=== PATIENT | male | born 1930 | race Caucasian/White ===

== ENCOUNTER 2016-09-12 12:40 | Inpatient (IN) | payer MEDICARE ==
[2016-09-12] VITALS (7 sets, daily range): BP systolic 144–222; BP diastolic 77–100; PULSE 73–90; RESP 14–20; TEMP 97.2–97.9; O2SAT 98–100
[~2016-09-12] VITALS: Ht 170.2 cm; Wt 68.5 kg
[~2016-09-12 12:40] MED LIST: BACT800T5 PO; CEPH500C3 PO; METO25 PO; METO50TA PO; PLAV75TA PO
--- NOTE | 2016-09-12 12:54 | PD ---
Physical Exam Date Seen by Provider: Sep 12, 2016 Time Seen by Provider: 12:51 Data Data Last Documented VS Vital Signs Date Time Temp Pulse Resp B/P Pulse Ox O2 Delivery O2 Flow Rate FiO2 09/12/16 12:42 97.9 82 20 148/78 100 MDM Supervised Visit with SARA: No Narrative Course 86 YO M with complaint of 5/10 left lower extremity pain, dry gangrene of the left great toe. Patient is on PLAVIX. Sent by Dr. Yusuf "for bypass surgery." Vitals reviewed. Awaiting bed placement. Gillian Titus Sep 12, 2016 12:54
--- NOTE | 2016-09-12 13:18 | PD ---
HPI Chief Complaint: Musculoskeletal Complaint Time Seen by Provider: 13:18 Travel History International Travel<30 days: No Contact w/Intl Traveler<30days: No Traveled to known affect area: No PFSH Past Medical History Diabetes: Yes Diminished Hearing: Yes (DOES NOT WEAR HEARING AIDS) Hypertension: Yes Immunizations Current: Yes Past Surgical History Cardiac Surgery: Yes (CAROTID ENDARECTOMY) Other Surgery: Yes (CAROTID SX) Social History Alcohol Use: Yes (A FEW DRINKS A DAY) Tobacco Use: No Substance Use: No Allergies-Medications (Allergen,Severity, Reaction): Coded Allergies: No Known Allergies (Verified , 09/12/16) Reported Meds & Prescriptions Reported Meds & Active Scripts Active Reported Clopidogrel (Clopidogrel Bisulfate) 75 Mg Tab 75 Mg PO DAILY Lisinopril 40 Mg Tab 40 Mg PO DAILY Hydrocodone-Acetaminophen 5-325 mg Tab 1 Tab PO Q6H PRN Metoprolol Tartrate 25 Mg Tab 25 Mg PO BID Data Data Last Documented VS Vital Signs Date Time Temp Pulse Resp B/P Pulse Ox O2 Delivery O2 Flow Rate FiO2 09/12/16 12:42 97.9 82 20 148/78 100 Orders Complete Blood Count With Diff (09/12/16 14:12) Basic Metabolic Panel (Bmp) (09/12/16 14:12) Prothrombin Time / Inr (Pt) (09/12/16 14:12) Type And Screen (09/12/16 14:12) ^ Saline Lock (09/12/16 14:12) Heparin Infusion KRISSY.Q1H (09/12/16 14:16) Heparin-D5w Inj (Heparin-D5w Inj) (09/12/16 14:30) Act Partial Throm Time (Ptt) (09/12/16 14:16) Cbc No Diff, Includes Plts (09/15/16 06:00) Morphine Inj (Morphine Inj) (09/12/16 14:30) Admit Order (Ed Use Only) (09/12/16 15:05) Labs Laboratory Tests Test 09/12/16 13:40 White Blood Count 16.0 TH/MM3 Red Blood Count 4.10 MIL/MM3 Hemoglobin 11.6 GM/DL Hematocrit 35.6 % Mean Corpuscular Volume 86.8 FL Mean Corpuscular Hemoglobin 28.4 PG Mean Corpuscular Hemoglobin 32.7 % Concent Red Cell Distribution Width 13.2 % Platelet Count 491 TH/MM3 Mean Platelet Volume 7.7 FL Neutrophils (%) (Auto) 79.2 % Lymphocytes (%) (Auto) 12.5 % Monocytes (%) (Auto) 7.8 % Eosinophils (%) (Auto) 0.2 % Basophils (%) (Auto) 0.3 % Neutrophils # (Auto) 12.7 TH/MM3 Lymphocytes # (Auto) 2.0 TH/MM3 Monocytes # (Auto) 1.3 TH/MM3 Eosinophils # (Auto) 0.0 TH/MM3 Basophils # (Auto) 0.1 TH/MM3 CBC Comment DIFF FINAL Differential Comment Prothrombin Time 10.6 SEC Prothromb Time International 1.0 RATIO Ratio Activated Partial 29.4 SEC Thromboplast Time Sodium Level 132 MEQ/L Potassium Level 4.0 MEQ/L Chloride Level 98 MEQ/L Carbon Dioxide Level 26.5 MEQ/L Anion Gap 8 MEQ/L Blood Urea Nitrogen 18 MG/DL Creatinine 1.21 MG/DL Estimat Glomerular Filtration 57 ML/MIN Rate Random Glucose 120 MG/DL Calcium Level 8.8 MG/DL Blood Type A POSITIVE Antibody Screen NEGATIVE Blood Bank Comment Chelle Rolon MD Sep 12, 2016 13:18 Chelle Rolon MD Sep 12, 2016 13:18
[2016-09-12] MEDS ORDERED: HYDR-3516 PO (13:24)
[2016-09-12] MEDS ORDERED: METO25TA3 PO (13:24)
[2016-09-12] MEDS ORDERED: LISI40TA PO (13:24)
[2016-09-12] MEDS ORDERED: CLOP75TA PO (13:24)
[2016-09-12] MEDS ORDERED: MORPHINE SULFATE 4 MG/ML INJ IV PUSH ONE (14:30)
[2016-09-12] MEDS ORDERED: HEPARIN-D5W INJ 250 ML IV SCH (14:30)
--- NOTE | 2016-09-12 14:32 | PD ---
HPI Chief Complaint: Musculoskeletal Complaint Time Seen by Provider: 13:18 Travel History International Travel<30 days: No Contact w/Intl Traveler<30days: No Traveled to known affect area: No History of Present Illness HPI 86-year-old male brought to the emergency room sent by his vascular surgeon Dr. Yusuf for left great toe dry gangrene secondary to poor circulation. Patient is here with his 2 sons and he is here to be admitted. The vascular surgeon intends to do the surgery on Thursday. Patient reports having spasms, pain and varicose veins in his left lower extremity for the last month after experiencing an ingrown toe nail on his left big toe. He describes the pain as constant, sharp, burning and worsening. He also reports having claudication and dyspnea on exertion. He becomes short of breath walking from room to room at his house. Patient denies edema, fever, chills, headache, nausea or vomiting. As per the sons a black dot started on the great toe 1 week ago. It rapidly progressed to engulf two third of the toe. Patient has history of poor circulation. Vascular surgeon intends to do a groin reconstruction surgery on Thursday. Family is aware of this plan. They understand that he needs to be admitted. [facility] Past Medical History Narrative Medical List of his past medical, surgical, social and family history was reviewed from the nursing note. Diabetes: Yes Patient Takes Glucophage: No Diminished Hearing: Yes (DOES NOT WEAR HEARING AIDS) Hypertension: Yes Medical other: Yes (peripheral vascular disease) Immunizations Current: Yes Past Surgical History Cardiac Surgery: Yes (CAROTID ENDARECTOMY) Other Surgery: Yes (CAROTID SX) Social History Alcohol Use: No Tobacco Use: No Substance Use: No Allergies-Medications (Allergen,Severity, Reaction): Coded Allergies: No Known Allergies (Verified , 09/12/16) Comments No known drug allergies. Reported Meds & Prescriptions Reported Meds & Active Scripts Active Reported Clopidogrel (Clopidogrel Bisulfate) 75 Mg Tab 75 Mg PO DAILY Lisinopril 40 Mg Tab 40 Mg PO DAILY Hydrocodone-Acetaminophen 5-325 mg Tab 1 Tab PO Q6H PRN Metoprolol Tartrate 25 Mg Tab 25 Mg PO BID Narrative Medication List of his home medications reviewed from the nursing note. Review of Systems Except as stated in HPI: all other systems reviewed are Neg Respiratory: Positive: Shortness of Breath (on exertion ) Musculoskeletal: Positive: Cramping (claudication ), Pain, Other (spasms) Physical Exam Narrative GENERAL: Awake, alert, elderly, mild distress SKIN: Focused skin assessment warm/dry. Left foot great toe has dry gangrene with necrosis. Distal pulses absent on the foot. Varicose veins visualized in the left lower extremity. Nails are overgrown, yellow and unkempt. Numerous superficial lesions with small amounts of bleeding noted between toes of the left foot. HEAD: Atraumatic. Normocephalic. EYES: Pupils equal and round. No scleral icterus. No injection or drainage. ENT: No nasal bleeding or discharge. Mucous membranes pink and moist. NECK: Trachea midline. No JVD. CARDIOVASCULAR: Regular rate and rhythm. No murmur appreciated. RESPIRATORY: No accessory muscle use. Clear to auscultation. Breath sounds equal bilaterally. GASTROINTESTINAL: Abdomen soft, non-tender, nondistended. Hepatic and splenic margins not palpable. MUSCULOSKELETAL: No obvious deformities. No clubbing. No cyanosis. No edema. NEUROLOGICAL: Awake and alert. No obvious cranial nerve deficits. Motor grossly within normal limits. Normal speech. Sensation intact bilaterally in lower extremities. PSYCHIATRIC: Appropriate mood and affect; insight and judgment normal. Data Data Last Documented VS Vital Signs Date Time Temp Pulse Resp B/P Pulse Ox O2 Delivery O2 Flow Rate FiO2 09/12/16 12:42 97.9 82 20 148/78 100 Orders Complete Blood Count With Diff (09/12/16 14:12) Basic Metabolic Panel (Bmp) (09/12/16 14:12) Prothrombin Time / Inr (Pt) (09/12/16 14:12) Type And Screen (09/12/16 14:12) ^ Saline Lock (09/12/16 14:12) Heparin Infusion KRISSY.Q1H (09/12/16 14:16) Heparin-D5w Inj (Heparin-D5w Inj) (09/12/16 14:30) Act Partial Throm Time (Ptt) (09/12/16 14:16) Cbc No Diff, Includes Plts (09/15/16 06:00) Morphine Inj (Morphine Inj) (09/12/16 14:30) Admit Order (Ed Use Only) (09/12/16 15:05) Labs Laboratory Tests Test 09/12/16 13:40 White Blood Count 16.0 TH/MM3 Red Blood Count 4.10 MIL/MM3 Hemoglobin 11.6 GM/DL Hematocrit 35.6 % Mean Corpuscular Volume 86.8 FL Mean Corpuscular Hemoglobin 28.4 PG Mean Corpuscular Hemoglobin 32.7 % Concent Red Cell Distribution Width 13.2 % Platelet Count 491 TH/MM3 Mean Platelet Volume 7.7 FL Neutrophils (%) (Auto) 79.2 % Lymphocytes (%) (Auto) 12.5 % Monocytes (%) (Auto) 7.8 % Eosinophils (%) (Auto) 0.2 % Basophils (%) (Auto) 0.3 % Neutrophils # (Auto) 12.7 TH/MM3 Lymphocytes # (Auto) 2.0 TH/MM3 Monocytes # (Auto) 1.3 TH/MM3 Eosinophils # (Auto) 0.0 TH/MM3 Basophils # (Auto) 0.1 TH/MM3 CBC Comment DIFF FINAL Differential Comment Prothrombin Time 10.6 SEC Prothromb Time International 1.0 RATIO Ratio Activated Partial 29.4 SEC Thromboplast Time Sodium Level 132 MEQ/L Potassium Level 4.0 MEQ/L Chloride Level 98 MEQ/L Carbon Dioxide Level 26.5 MEQ/L Anion Gap 8 MEQ/L Blood Urea Nitrogen 18 MG/DL Creatinine 1.21 MG/DL Estimat Glomerular Filtration 57 ML/MIN Rate Random Glucose 120 MG/DL Calcium Level 8.8 MG/DL Blood Type A POSITIVE Antibody Screen NEGATIVE Blood Bank Comment MDM Medical Decision Making Medical Screen Exam Complete: Yes Emergency Medical Condition: Yes Medical Record Reviewed: Yes Differential Diagnosis Dry gangrene, ischemia of the great toe, poor circulation, PAD Narrative Course 2:29 PM I discussed the case with Dr. Yusuf's PA and she confirmed this story. He wanted the patient to be started on heparin drip which has been ordered. Preop labs has been ordered. I put a call out for the [facility] hospitalist to admit him. Critical Care Narrative Aggregate critical care time was 30 minutes. Time to perform other separately billable procedures was not included in the critical care time. My time did not include minutes spent treating any other patients simultaneously or on activities that did not directly contribute to the patient's treatment. The services I provided to this patient were to treat and/or prevent clinically significant deterioration that could result in: Ischemia of the toe, heparin drip I provided critical care services requiring my management, as noted below: Chart data review, documentation time, medication orders and management, vital sign assessments/reviewing monitor data, ordering and reviewing lab tests, ordering and interpreting/reviewing x-rays and diagnostic studies, care of the patient and discussion of the patient with the admitting physicians. Procedures EKG Prior to Arrival: No Physician Communication Physician Communication PA of Dr. Yusuf Diagnosis Primary Impression: Gangrene of toe of left foot Additional Impression: Peripheral arterial disease Admitting Information Admitting Physician Requests: Admit Chelle Rolon MD Sep 12, 2016 14:32 Chelle Rolon MD Sep 12, 2016 14:32
[2016-09-12 14:38] LABS: AUTOMATED NEUTROPHIL # 12.7 TH/MM3 (1.8-7.7); BASOPHIL # 0.1 TH/MM3 (0-0.2); BASOPHIL % 0.3 % (0.0-2.0); EOSINOPHIL % 0.2 % (0.0-4.0); HEMATOCRIT 35.6 % (39.0-51.0); HEMO FLAGS DIFF FINAL; LYMPH % 12.5 % (9.0-44.0); MEAN CELL VOLUME 86.8 FL (80.0-100.0); MEAN CORPUSCULAR HEMOGLOBIN 28.4 PG (27.0-34.0); MEAN CORPUSCULAR HGB CONC 32.7 % (32.0-36.0); MONO % 7.8 % (0.0-8.0); NEUT % 79.2 % (16.0-70.0); PLATELET COUNT 491 TH/MM3 (150-450); RED CELL DISTRIBUTION WIDTH 13.2 % (11.6-17.2)
[2016-09-12 14:51] LABS: BICARBONATE 26.5 MEQ/L (21.0-32.0)
[2016-09-12 14:55] LABS: APTT (PATIENT) 29.4 SEC (24.3-30.1)
[2016-09-12 15:06] LABS: PROTHROMBIN TIME - PATIENT 10.6 SEC (9.8-11.6)
[2016-09-12] MEDS ORDERED: SODIUM CHLORIDE 0.9% FLUSH 10 ML FLUSH IV FLUSH PRN (15:15)
[2016-09-12] MEDS ORDERED: ONDANSETRON HCL 4 MG/2 ML VIAL IVP PRN (15:15)
[2016-09-12] MEDS ORDERED: NALOXONE HCL 0.4 MG/ML AMP IV PRN (15:15)
[2016-09-12] MEDS ORDERED: LACTULOSE SYRUP 20 GM/30 ML CUP PO PRN (15:15)
[2016-09-12] MEDS ORDERED: BISACODYL 10 MG SUPP RECTAL PRN (15:15)
[2016-09-12] MEDS ORDERED: ACETAMINOPHEN 325 MG TAB PO PRN (15:15)
[2016-09-12] MEDS ORDERED: SENNOSIDES 8.6 MG TAB PO PRN (15:15)
[2016-09-12] MEDS ORDERED: MAGNESIUM HYDROXIDE SUSP 30 ML CUP PO PRN (15:15)
[2016-09-12] MEDS: HEPARIN-D5W INJ 250 ML IV SCH (16:54)
--- NOTE | 2016-09-12 17:02 | PD.VS.PN ---
Subjective Subjective/Hospital Course Pt seen earlier today in clinic - he has a profoundly ischemic forefoot, along with HTN, DM and h/o CVA. Pt has intense rest pain and may in fact have an unsalvageable foot. Objective Vitals/I&O Date Time Temp Pulse Resp B/P Pulse Ox O2 Delivery O2 Flow Rate FiO2 09/12/16 16:10 90 164/80 09/12/16 15:27 97.7 73 18 220/97 100 Room Air 09/12/16 12:42 97.9 82 20 148/78 100 Physical Exam L forefoot ischemia, no palpable pulses. Great toe dry gangrene. Laboratory Laboratory Tests Test 09/12/16 13:40 White Blood Count 16.0 Red Blood Count 4.10 Hemoglobin 11.6 Hematocrit 35.6 Mean Corpuscular Volume 86.8 Mean Corpuscular Hemoglobin 28.4 Mean Corpuscular Hemoglobin 32.7 Concent Red Cell Distribution Width 13.2 Platelet Count 491 Mean Platelet Volume 7.7 Neutrophils (%) (Auto) 79.2 Lymphocytes (%) (Auto) 12.5 Monocytes (%) (Auto) 7.8 Eosinophils (%) (Auto) 0.2 Basophils (%) (Auto) 0.3 Neutrophils # (Auto) 12.7 Lymphocytes # (Auto) 2.0 Monocytes # (Auto) 1.3 Eosinophils # (Auto) 0.0 Basophils # (Auto) 0.1 CBC Comment DIFF FINAL Differential Comment Prothrombin Time 10.6 Prothromb Time International 1.0 Ratio Activated Partial 29.4 Thromboplast Time Sodium Level 132 Potassium Level 4.0 Chloride Level 98 Carbon Dioxide Level 26.5 Anion Gap 8 Blood Urea Nitrogen 18 Creatinine 1.21 Estimat Glomerular Filtration 57 Rate Random Glucose 120 Calcium Level 8.8 Blood Type A POSITIVE Antibody Screen NEGATIVE Blood Bank Comment Imaging Outside angio reviewed - significant [employer] and profunda disease. Unclear if he has a distal target. Assessment and Plan Plan 1. Admit and start IV hep gtt 2. IV pain meds 3. Plan for angio, groin reconstruction and distal bypass on Thursday morning. I discussed the procedure and the ultimate chance of limb loss with the patient and his family in clinic. To OR Thursday. Nick Yusuf MD Sep 12, 2016 17:02
--- NOTE | 2016-09-12 17:54 | MH ---
cc: CHRISTOPHER HOLBROOK MD DATE OF ADMISSION 09/12/2016 DATE OF 1930 TRAVEL HISTORY Travel in the last 30 days none. CHIEF COMPLAINT Right great toe pain with gangrene. HISTORY OF PRESENT ILLNESS This is a pleasant 86-year-old white male who had been in his usual state of health up until this past March. The patient's ____ at bedside and assisting with his history. The patient has always been very active and walked with his walker daily as well as exercises daily. The patient noted some increased sensation of pain back since March and has been following his PCP and vascular surgeon, Dr. Jones for his vascular insufficiency. Approximately a week ago sons noted a very small black area on his great toe that has rapidly progressed to black tissue to over half of his right great toe. The patient has also reddened erythema over half of his foot but no further dark or blackened areas noted. The patient was seen per his vascular surgeon, Dr. Jones today and was advised to come to the hospital for admission. According to the sons the plan is to do surgery on Thursday. The patient denies any chest pain. He does have some shortness of breath with exertion but none at rest. The patient denies any headaches. The patient denies any nausea, vomiting, no diarrhea. No constipation. The patient is alert, awake, answers simple questions but he is a fair to poor historian. Sons at his bedside and supportive of his care and are his chief caretakers. PAST MEDICAL HISTORY The past medical history includes diabetes type 2 diet controlled, [id number], hypertension, peripheral vascular disease. Carotid disease. PAST SURGICAL HISTORY 1. Carotid endarterectomy. ALLERGIES No known. MEDICATIONS 1. Plavix. 2. Lisinopril. 3. Hydrocodone, acetaminophen 5-3 5 p.r.n. for pain. 4. Metoprolol. SOCIAL HISTORY There is no tobacco, alcohol or illicit drug use. The patient lives in his own home. His two sons are daily assistance with his care taking. REVIEW OF SYSTEMS The review of systems limited review except for yes or noted to symptom management. History was given her sons and from the record. PHYSICAL EXAMINATION VITAL SIGNS: Temperature is 97.7, pulse 73, respirations 18, blood pressure initially on admission 148/78. During my initial says assessment blood pressure came up on the regulated BP machine at 220/97 in the left arm. Cuff was readjusted and checked in the right arm. Blood pressure was noted to be 165/80. Manual check was done in the left arm and was found to be 140/86 and 132/80. O2 sat 100 on room air. GENERAL: Slim but well-nourished white male, looks to be his stated age, resting in the bed. He is alert, awake and answering simple questions. SKIN: Is pale with pink mucous membranes warm and dry. HEENT: Atraumatic, normocephalic. MILEY too Mucous membranes are pink and moist. Oral cavity is clear. NECK: is supple. CARDIOVASCULAR: S1-S2, regular rate and rhythm in the 70s. No murmurs, rubs or gallops. The patient has no peripheral edema. He has no pulse, no DP or PT palpable in his right foot. Left foot, extremity is warm to touch. LUNGS: Essentially clear anteriorly and posteriorly with no wheezes, rales or rhonchi. His volumes are low normal volumes. ABDOMEN: Abdomen is round, soft, nontender, nondistended. Active bowel sounds. MUSCULOSKELETAL: He can move his extremities with purpose. He has limited movement and positive for pain in his left lower extremity. He does have a gangrenous black great toe on his left foot with discoloration and redness over half of the foot. He has no other obvious deformities. NEUROLOGICALLY: He is alert, awake, tongue is midline. Follows simple commands. Speech is clear. PSYCHIATRIC: Appropriate mood and affect. DIAGNOSTIC DATA WBC count 16, RBC 4.1, hemoglobin 11.6, hematocrit 35.6, platelet count 491, neutrophil count 79.2, platelet count 491, monocyte count percentage auto 1.3. PT/INR is 1, APTT 29.4. Chemistry sodium 132, potassium 4, chloride 98, carbon dioxide 26.5. Amnion gap 8, BUN 18, creatinine 1.21, GFR 57, random glucose 120, calcium 8.8. IMAGING STUDIES There is no other imaging studies for now. ASSESSMENT/PLAN Peripheral artery disease, gangrene of the great toe of the left foot, leukocytosis mild, hyponatremia mild, hyperglycemia with diet-controlled diabetes type 2, anemia mild, elevated platelet count at 491, history of hypertension. Our plan is to admit. We will monitor his vital signs at least every four hours. Reconcile his medication and give him stool softeners and p.r.n. medications for pain, nausea, fever and bowel regimen as warranted. He will be admitted inpatient status. We will monitor his blood pressure and add some p.r.n. medications in case he needs a treatment for BP systolic 80 or greater, BP diastolic 100 or greater. Vascular consult with Dr. Jones or his expert opinion. My understanding is the plan for the patient to have vascular surgery on Thursday. We will monitor him on constant cardiac monitoring, heart healthy diet, maintain IV access, monitor his labs, DVT prophylaxis with a heparin drip, PUD prophylaxis with Pepcid, elevate the left foot at all times in the bed. To my knowledge the patient is full code, full aggressive care and we will follow his needs depending on his response to his hospital course. We will follow his needs based on his treatment regimen. Dictated by NILE Saleh MD KATHLEEN Bullock/GWENDOLYN /4:36 PM /5:23 PM
[2016-09-12] MEDS: ACETAMINOPHEN/HYDROcodone 325 MG/5 MG TAB PO PRN (19:14)
[2016-09-12] MEDS: METOPROLOL TARTRATE 25 MG TAB PO SCH (20:35)
[2016-09-12] MEDS: FAMOTIDINE 20 MG TAB PO SCH (20:35)
[2016-09-12] MEDS: SODIUM CHLORIDE 0.9% FLUSH 10 ML FLUSH IV FLUSH SCH (20:36)
[2016-09-12] MEDS: DOCUSATE SODIUM 50 MG/SENNA 8.6 MG TAB PO SCH (20:42)
[2016-09-12 20:45] LABS: HEMATOCRIT 34.3 % (39.0-51.0); MEAN CELL VOLUME 86.1 FL (80.0-100.0); MEAN CORPUSCULAR HEMOGLOBIN 28.9 PG (27.0-34.0); MEAN CORPUSCULAR HGB CONC 33.5 % (32.0-36.0); PLATELET COUNT 478 TH/MM3 (150-450); RED BLOOD COUNT 3.99 MIL/MM3 (4.50-5.90); REVIEW FLAG FINAL; WHITE BLOOD COUNT 14.9 TH/MM3 (4.0-11.0)
[2016-09-12 20:56] LABS: APTT (PATIENT) 39.4 SEC (24.3-30.1)
--- NOTE | 2016-09-12 23:24 | HHI.PR ---
Vitals/Results Vital Signs Vital Signs Date Time Temp Pulse Resp B/P Pulse Ox O2 Delivery O2 Flow Rate FiO2 09/12/16 20:29 90 09/12/16 20:05 90 09/12/16 20:05 18 09/12/16 20:00 97.2 88 19 144/81 98 09/12/16 18:00 97.8 85 14 222/100 100 203/89 157/77 09/12/16 16:10 90 164/80 09/12/16 15:27 97.7 73 18 220/97 100 Room Air 09/12/16 12:42 97.9 82 20 148/78 100 CBC/BMP: 09/12/16200909/12/16 1340 Lab Results Laboratory Tests Test 09/12/16 09/12/16 13:40 20:10 White Blood Count 16.0 TH/MM3 14.9 TH/MM3 Red Blood Count 4.10 MIL/MM3 3.99 MIL/MM3 Hemoglobin 11.6 GM/DL 11.5 GM/DL Hematocrit 35.6 % 34.3 % Mean Corpuscular Volume 86.8 FL 86.1 FL Mean Corpuscular Hemoglobin 28.4 PG 28.9 PG Mean Corpuscular Hemoglobin 32.7 % 33.5 % Concent Red Cell Distribution Width 13.2 % 13.0 % Platelet Count 491 TH/MM3 478 TH/MM3 Mean Platelet Volume 7.7 FL 7.6 FL Neutrophils (%) (Auto) 79.2 % Lymphocytes (%) (Auto) 12.5 % Monocytes (%) (Auto) 7.8 % Eosinophils (%) (Auto) 0.2 % Basophils (%) (Auto) 0.3 % Neutrophils # (Auto) 12.7 TH/MM3 Lymphocytes # (Auto) 2.0 TH/MM3 Monocytes # (Auto) 1.3 TH/MM3 Eosinophils # (Auto) 0.0 TH/MM3 Basophils # (Auto) 0.1 TH/MM3 CBC Comment DIFF FINAL Differential Comment Prothrombin Time 10.6 SEC Prothromb Time International 1.0 RATIO Ratio Activated Partial 29.4 SEC 39.4 SEC Thromboplast Time Sodium Level 132 MEQ/L Potassium Level 4.0 MEQ/L Chloride Level 98 MEQ/L Carbon Dioxide Level 26.5 MEQ/L Anion Gap 8 MEQ/L Blood Urea Nitrogen 18 MG/DL Creatinine 1.21 MG/DL Estimat Glomerular Filtration 57 ML/MIN Rate Random Glucose 120 MG/DL Calcium Level 8.8 MG/DL Blood Type A POSITIVE Antibody Screen NEGATIVE Blood Bank Comment Assessment/Plan Assessment/Plan patient seen and examined] please refer to admission h & P for details severe PAD gangrenous big toe right foot on hep[won gtt pain control Vascular surgery to do surgery on Thursday discussed with patient julia lewis at bedside discussed with Kira Gresham MD Sep 12, 2016 23:24
[2016-09-13] VITALS (7 sets, daily range): BP systolic 115–156; BP diastolic 50–80; PULSE 70–83; RESP 17–22; TEMP 96.3–97.9; O2SAT 98–99
[2016-09-13] MEDS: ACETAMINOPHEN/HYDROcodone 325 MG/5 MG TAB PO PRN ×3 (01:18→21:25)
[2016-09-13 02:12] LABS: BASOPHIL # 0.1 TH/MM3 (0-0.2); BASOPHIL % 0.5 % (0.0-2.0); EOSINOPHIL # 0.1 TH/MM3 (0-0.4); EOSINOPHIL % 0.5 % (0.0-4.0); HEMATOCRIT 34.4 % (39.0-51.0); HEMO FLAGS DIFF FINAL; LYMPHOCYTE # 3.2 TH/MM3 (1.0-4.8); MEAN CELL VOLUME 86.2 FL (80.0-100.0); MEAN CORPUSCULAR HEMOGLOBIN 28.4 PG (27.0-34.0); PLATELET COUNT 456 TH/MM3 (150-450); RED CELL DISTRIBUTION WIDTH 13.2 % (11.6-17.2); WHITE BLOOD COUNT 13.7 TH/MM3 (4.0-11.0)
[2016-09-13 02:33] LABS: BICARBONATE 25.8 MEQ/L (21.0-32.0); POTASSIUM 3.9 MEQ/L (3.5-5.1)
[2016-09-13 02:51] LABS: APTT (PATIENT) 57.7 SEC (24.3-30.1); PROTHROMBIN TIME - PATIENT 11.1 SEC (9.8-11.6)
[2016-09-13] MEDS: DOCUSATE SODIUM 50 MG/SENNA 8.6 MG TAB PO SCH ×2 (08:57→21:00)
[2016-09-13] MEDS: LISINOPRIL 20 MG TAB PO SCH (08:57)
[2016-09-13] MEDS: SODIUM CHLORIDE 0.9% FLUSH 10 ML FLUSH IV FLUSH SCH ×2 (08:57→21:00)
[2016-09-13] MEDS: METOPROLOL TARTRATE 25 MG TAB PO SCH ×2 (08:57→21:24)
[2016-09-13 09:54] LABS: APTT (PATIENT) 67.1 SEC (24.3-30.1)
[2016-09-13] MEDS: HEPARIN-D5W INJ 250 ML IV SCH (11:31)
--- NOTE | 2016-09-13 16:22 | HHI.PR ---
Subjective Remarks pt is seen & examined chart reviewed Foot pain is pk /pain meds are helping No N/V No CP or SOB NO fever or chills NO cough or hemoptysis No abd pain \offers no other c/o family is at bedside (Arnel Driver MD) Objective Objective Results - Vital Signs Date Time Temp Pulse Resp B/P Pulse Ox O2 Delivery O2 Flow Rate FiO2 09/13/16 08:04 81 09/13/16 08:00 97.0 83 22 151/64 99 09/13/16 04:00 97.9 70 18 131/62 98 09/13/16 02:18 17 09/13/16 00:00 97.0 79 18 156/80 98 09/12/16 20:29 90 09/12/16 20:05 90 09/12/16 20:00 97.2 88 19 144/81 98 09/12/16 18:00 97.8 85 14 222/100 100 203/89 157/77 I/O 09/12/16 09/12/16 09/12/16 09/13/16 09/13/16 09/13/16 07:00 15:00 23:00 07:00 15:00 23:00 Intake Total 240 ml 120 ml Output Total 450 ml 850 ml Balance -210 ml -730 ml Intake Oral 240 ml 120 ml Output Urine Total 450 ml 850 ml (Laya Silvestre) Result Diagram: 09/13/16 01509/13/16 015 Physical Exam Physical Exam PHYSICAL EXAMINATION GENERAL: This is a well-developed, well-nourished male who appears to be in no acute distress. He is alert and awake, []. HEAD: Normocephalic without any lesion or mass noted. Facial features appear symmetric. OROPHARYNGEAL: Oropharynx without erythema or edema. NECK: Supple. No nuchal rigidity or lymphadenopathy. Trachea midline without deviation. CARDIAC: Regular rhythm, regular rate, S1 and S2 are heard. Murmur []; no gallops or rubs. LUNGS: Clear to auscultation bilaterally. [] wheeze, [] rhonchi or [] rale. No use of accessory muscles on inspiration or expiration. ABDOMEN: Soft, nontender, no organomegaly or masses. Bowel sounds are heard in all four quadrants. No rebound. No guarding. EXTREMITIES: [] edema. Pulses equal bilateral. [] cyanosis. NEUROLOGICAL: Patient mood and affect appropriate. No focal deficit SKIN:Warm and moist (Laya Silvestre) A/P Assessment and Plan Peripheral artery disease, gangrene of the great toe of the left foot, leukocytosis mild, hyponatremia mild, hyperglycemia with diet-controlled diabetes type 2, anemia mild, mildly elevated platelet count history of hypertension. Acute kidney injury Gangrenous great toe with left foot, appreciate vascular surgery consult. Plan is still to go to surgery Thursday for bypass versus amputation. Left foot wound are open to air, states pain management is assisting with the overall discomfort. Patient noted some shortness of breath with any type of activity worsening over the past few months since he has not been as active. Chest x-ray to be done today preop, to have for any comparisons needed. Leukocytosis decreased, 13.7. Patient continues to receive IV fluid Anemia secondary to his chronic disease Diabetes type 2 uncontrolled on admission, continued to monitor his Accu-Cheks with sliding scale, ADA diet. Nothing by mouth at midnight Thursday night for surgery Thursday morning. Vital signs reviewed and within normal range Hypertension, controlled with medical management Acute kidney injury mild seen with his labs today. Continue his IV fluids for gentle hydration We'll recheck his labs in the morning. (Laya Silvestre) Assessment and Plan pt is seen & examined d/w PT & family agree w above cont IV heparin analgesic for vascular sx on thursday will f/u (Arnel Driver MD) Laya Silvestre Sep 13, 2016 16:22 Arnel Driver MD Sep 13, 2016 18:21
--- NOTE | 2016-09-13 17:25 | RADRPT ---
EXAM DATE/TIME: 09/13/2016 16:51 [facility] COMPARISON: No previous studies available for comparison. INDICATIONS : Shortness of breath. MEDICAL HISTORY : None. SURGICAL HISTORY : None. ENCOUNTER: Initial ACUITY: 1 day PAIN SCORE: 0/10 LOCATION: Bilateral chest FINDINGS: A single view of the chest demonstrates the lungs to be symmetrically aerated without evidence of mas s, infiltrate or effusion. The cardiomediastinal contours are unremarkable except tortuous aorta. O sseous structures are intact. CONCLUSION: 1. No acute findings. Mildly tortuous aorta. Hamlet Soliz MD on September 13, 2016 at 17:22 Board Certified Radiologist. This report was verified electronically.
[2016-09-13] MEDS: SODIUM CHLOR 0.9% 1000 ML INJ 1,000 ML IV SCH (17:44)
[2016-09-13] MEDS: FAMOTIDINE 20 MG TAB PO SCH (21:24)
[2016-09-13] MEDS: HYDROmorphone HCL PF 1 MG/ML VIAL IV PUSH PRN (22:03)
[2016-09-14] VITALS: BP 111/84; PULSE 76; RESP 18; TEMP 96; O2SAT 97
[2016-09-14 04:00] VITALS: BP 119/58; PULSE 69; RESP 17; TEMP 97; O2SAT 98
[2016-09-14] MEDS: HEPARIN-D5W INJ 250 ML IV SCH (07:48)
[2016-09-14 08:44] VITALS: BP 132/73; PULSE 70; RESP 19; TEMP 97.1; O2SAT 95
[2016-09-14 08:47] LABS: HEMATOCRIT 34.2 % (39.0-51.0); MEAN CELL VOLUME 87.4 FL (80.0-100.0); MEAN CORPUSCULAR HEMOGLOBIN 29.2 PG (27.0-34.0); MEAN CORPUSCULAR HGB CONC 33.4 % (32.0-36.0); PLATELET COUNT 423 TH/MM3 (150-450); RED BLOOD COUNT 3.91 MIL/MM3 (4.50-5.90); RED CELL DISTRIBUTION WIDTH 13.2 % (11.6-17.2); REVIEW FLAG FINAL; WHITE BLOOD COUNT 13.2 TH/MM3 (4.0-11.0)
[2016-09-14] MEDS: DOCUSATE SODIUM 50 MG/SENNA 8.6 MG TAB PO SCH ×2 (09:00→21:00)
[2016-09-14] MEDS: SODIUM CHLORIDE 0.9% FLUSH 10 ML FLUSH IV FLUSH SCH ×2 (09:00→21:14)
[2016-09-14 09:12] LABS: BICARBONATE 23.1 MEQ/L (21.0-32.0); POTASSIUM 3.8 MEQ/L (3.5-5.1)
[2016-09-14] MEDS: LISINOPRIL 20 MG TAB PO SCH (09:14)
[2016-09-14] MEDS: METOPROLOL TARTRATE 25 MG TAB PO SCH ×2 (09:15→21:13)
--- NOTE | 2016-09-14 10:09 | HHI.PR ---
Vitals/Results Intake & Output 09/13/16 09/13/16 09/14/16 15:00 23:00 07:00 Intake Total 1440 ml 120 ml Output Total 1600 ml 450 ml Balance -160 ml -330 ml Intake Oral 1440 ml 120 ml Output Urine Total 1600 ml 450 ml Vital Signs Vital Signs Date Time Temp Pulse Resp B/P Pulse Ox O2 Delivery O2 Flow Rate FiO2 09/14/16 08:44 97.1 70 19 132/73 95 09/14/16 04:00 97.0 69 17 119/58 98 09/14/16 00:00 96.0 76 18 111/84 97 09/13/16 22:33 17 09/13/16 22:03 18 09/13/16 20:00 96.3 83 17 115/50 98 09/13/16 16:00 97.5 78 20 128/58 98 09/13/16 12:00 97.4 71 20 125/57 98 CBC/BMP: 09/14/16 0811 09/14/16 0811 Lab Results Laboratory Tests Test 09/14/16 08:11 White Blood Count 13.2 TH/MM3 Red Blood Count 3.91 MIL/MM3 Hemoglobin 11.4 GM/DL Hematocrit 34.2 % Mean Corpuscular Volume 87.4 FL Mean Corpuscular Hemoglobin 29.2 PG Mean Corpuscular Hemoglobin 33.4 % Concent Red Cell Distribution Width 13.2 % Platelet Count 423 TH/MM3 Mean Platelet Volume 7.7 FL Sodium Level 136 MEQ/L Potassium Level 3.8 MEQ/L Chloride Level 103 MEQ/L Carbon Dioxide Level 23.1 MEQ/L Anion Gap 10 MEQ/L Blood Urea Nitrogen 23 MG/DL Creatinine 1.25 MG/DL Estimat Glomerular Filtration 55 ML/MIN Rate Random Glucose 104 MG/DL Calcium Level 8.1 MG/DL Assessment/Plan Assessment/Plan patient seen and examined] please refer to admission h & P for details severe PAD gangrenous big toe right foot on hep[won gtt pain control Vascular surgery to do surgery on Thursday discussed with patient julia lewis at bedside discussed with Kaylene Menjivar Sep 14, 2016 10:09
--- NOTE | 2016-09-14 10:16 | HHI.PR ---
Subjective Subjective Remarks pain well controlled no cp no sob no fever on heparin gtt for surgery in am Review of Systems Constitutional Constitutional Remarks 12 point ROS completed, negative except as noted above Vitals/Results Intake & Output 09/13/16 09/13/16 09/14/16 15:00 23:00 07:00 Intake Total 1440 ml 120 ml Output Total 1600 ml 450 ml Balance -160 ml -330 ml Intake Oral 1440 ml 120 ml Output Urine Total 1600 ml 450 ml Vital Signs Vital Signs Date Time Temp Pulse Resp B/P Pulse Ox O2 Delivery O2 Flow Rate FiO2 09/14/16 08:44 97.1 70 19 132/73 95 09/14/16 04:00 97.0 69 17 119/58 98 09/14/16 00:00 96.0 76 18 111/84 97 09/13/16 22:33 17 09/13/16 22:03 18 09/13/16 20:00 96.3 83 17 115/50 98 09/13/16 16:00 97.5 78 20 128/58 98 09/13/16 12:00 97.4 71 20 125/57 98 CBC/BMP: 09/14/16 0811 09/14/16 0811 Lab Results Laboratory Tests Test 09/14/16 08:11 White Blood Count 13.2 TH/MM3 Red Blood Count 3.91 MIL/MM3 Hemoglobin 11.4 GM/DL Hematocrit 34.2 % Mean Corpuscular Volume 87.4 FL Mean Corpuscular Hemoglobin 29.2 PG Mean Corpuscular Hemoglobin 33.4 % Concent Red Cell Distribution Width 13.2 % Platelet Count 423 TH/MM3 Mean Platelet Volume 7.7 FL Sodium Level 136 MEQ/L Potassium Level 3.8 MEQ/L Chloride Level 103 MEQ/L Carbon Dioxide Level 23.1 MEQ/L Anion Gap 10 MEQ/L Blood Urea Nitrogen 23 MG/DL Creatinine 1.25 MG/DL Estimat Glomerular Filtration 55 ML/MIN Rate Random Glucose 104 MG/DL Calcium Level 8.1 MG/DL Physical Exam General General Appearance: Well Developed, Well Nourished, No Acute Distress, Comfortable Eyes Eye Exam: Pupils Equal, Pupils Reactive Ears & Nose Ears & Nose Exam: Nasal Mucosa [place] Throat Throat Exam: Oral Mucosa [place] & Moist Neck Neck Exam: Neck Supple, Trachea Midline Pulmonary Resp Exam: Clear Bilaterally, No Distress Cardiology CV Exam: Regular, Good Perfusion Gastrointestinal/Abdomen GI Exam: Soft, Non-Tender, Bowel Sounds Present, Non-Distended Musculoskeletal MS Exam: Joints Intact Integumentary Skin Exam: Warm Extremeties Extremeties Remarks no pulse left foot, toes fool, left great toe necrosis. Toes and up to mid foot with discoloration faint pulse right foot Neurologic Neuro Exam: Alert, Awake, Oriented, Speech Clear, Moving All Extremities, No Focal Deficits Psychiatric Psych Exam: Appropriate Responses VTE Prophylaxis VTE Prophylaxis Meds: Heparin Assessment/Plan Assessment/Plan Peripheral artery disease, gangrene of the great toe of the left foot, leukocytosis mild, hyponatremia mild, hyperglycemia with diet-controlled diabetes type 2, anemia mild, mildly elevated platelet count hypertension. Acute kidney injury Plan: Gangrenous great toe with left foot -appreciate vascular surgery consult. Plan to go to surgery Thursday - angio, groin reconstruction and distal bypass on Thursday. May need amputation continue Heparin gtt pain management vascular checks CXR reviewed, stable, pt. stable to proceed with surgical procedure. Nothing by mouth at midnight Thursday night for surgery Thursday. Leukocytosis decreased, trending down, likely sec. to stress response monitor CBC Diabetes type 2 uncontrolled on admission -Accu-Cheks with sliding scale -ADA diet Hypertension, controlled -continue with with medical management Acute kidney injury, resolved -continue with IVF Labs reviewed stable for surgery in am D/W RN D/W Dr. Driver D/W pt This patient was seen by myself and Dr. Driver, this note is written on his behalf. Kaylene Barton Sep 14, 2016 10:16
--- NOTE | 2016-09-14 12:01 | PD.VS.PN ---
Pre-operative Note Pre-operative diagnosis: PAD, profound LEFT leg ischemia Planned procedure: L groin reconstruction, distal bypass, angiogram Interval History: Pt was seen on Thursday in my clinic and admitted urgently for pain control and IV heparin gtt. No changes over week-end. Foot actually looks better and patient in less pain. Ready for OR. Labs: Laboratory Results Test 09/13/16 09/14/16 01:58 08:11 Prothromb Time International 1.0 RATIO Ratio White Blood Count 13.2 TH/MM3 (4.0-11.0) Red Blood Count 3.91 MIL/MM3 (4.50-5.90) Hemoglobin 11.4 GM/DL (13.0-17.0) Hematocrit 34.2 % (39.0-51.0) Mean Corpuscular Volume 87.4 FL (80.0-100.0) Mean Corpuscular Hemoglobin 29.2 PG (27.0-34.0) Mean Corpuscular Hemoglobin 33.4 % Concent (32.0-36.0) Red Cell Distribution Width 13.2 % (11.6-17.2) Platelet Count 423 TH/MM3 (150-450) Mean Platelet Volume 7.7 FL (7.0-11.0) Sodium Level 136 MEQ/L (136-145) Potassium Level 3.8 MEQ/L (3.5-5.1) Chloride Level 103 MEQ/L (98-107) Carbon Dioxide Level 23.1 MEQ/L (21.0-32.0) Anion Gap 10 MEQ/L (5-15) Blood Urea Nitrogen 23 MG/DL (7-18) Random Glucose 104 MG/DL (74-106) Calcium Level 8.1 MG/DL (8.5-10.1) Blood: T&C 2U Imaging: Last Impressions Chest X-Ray 09/13/16 0000 Signed Impressions: Service Date/Time: Tuesday, September 13, 2016 16:51 - CONCLUSION: 1. No acute findings. Mildly tortuous aorta. Hamlet Soliz MD Orders: NPO after MN MIVF at [facility] with 42mL/h Ancef 2g IV OCTOR Post-operative destination: CICU Operative site marked: Yes Consent: Informed consent will be signed by Jared Gama. I have explained the procedure in detail and discussed the risks, benefits, and potential complications. All questions have been answered. The patient and the family understand the magnitude of the surgery and the potential for limb loss. Nick Yusuf MD Sep 14, 2016 12:01
[2016-09-14 12:27] VITALS: BP 105/63; PULSE 63; RESP 20; TEMP 96.8; O2SAT 98
[2016-09-14 13:11] LABS: APTT (PATIENT) 81.4 SEC (24.3-30.1)
[2016-09-14] MEDS: ACETAMINOPHEN/HYDROcodone 325 MG/5 MG TAB PO PRN (14:26)
[2016-09-14 16:00] VITALS: BP 101/50; PULSE 77; RESP 20; TEMP 97.1; O2SAT 96
[2016-09-14] MEDS: SODIUM CHLOR 0.9% 1000 ML INJ 1,000 ML IV SCH (17:17)
[2016-09-14 20:00] VITALS: BP 112/55; PULSE 72; PULSE 75; RESP 17; TEMP 97.2; O2SAT 98
[2016-09-14] MEDS: HYDROmorphone HCL PF 1 MG/ML VIAL IV PUSH PRN (21:12)
[2016-09-14] MEDS: FAMOTIDINE 20 MG TAB PO SCH (21:13)
[2016-09-14 21:51] LABS: APTT (PATIENT) 59.9 SEC (24.3-30.1)
[2016-09-14] MEDS ORDERED: LACTATED RINGER'S 1000 ML INJ 1,000 ML IV SCH (23:00)
[2016-09-15] VITALS (7 sets, daily range): BP systolic 124–195; BP diastolic 58–103; PULSE 63–103; RESP 16–22; TEMP 96.6–98.8; O2SAT 97–99
[2016-09-15] MEDS: HYDROmorphone HCL PF 1 MG/ML VIAL IV PUSH PRN (01:21)
[2016-09-15] MEDS ORDERED: SODIUM CHLORID 0.9% 500 ML IV PRN (03:30)
[2016-09-15] MEDS ORDERED: POVIDONE IODINE 5% (ANTISEPSIS KIT) 4 APPLICATIONS EACH NARE PRN (03:30)
[2016-09-15] MEDS ORDERED: CHLORHEXIDINE GLUCONATE 2 % 1 PACK (2 CLOTHS) TOPICAL PRN (03:30)
[2016-09-15] MEDS ORDERED: LACTATED RINGER'S 1000 ML IV PRN (03:30)
[2016-09-15] MEDS ORDERED: INSULIN HUMAN REGULAR 1,000 UNITS/10 ML VIAL SQ PRN (03:30)
[2016-09-15 04:07] LABS: HEMATOCRIT 33.5 % (39.0-51.0); MEAN CELL VOLUME 86.5 FL (80.0-100.0); MEAN CORPUSCULAR HEMOGLOBIN 29.3 PG (27.0-34.0); MEAN CORPUSCULAR HGB CONC 33.9 % (32.0-36.0); PLATELET COUNT 430 TH/MM3 (150-450); RED BLOOD COUNT 3.88 MIL/MM3 (4.50-5.90); RED CELL DISTRIBUTION WIDTH 13.1 % (11.6-17.2); REVIEW FLAG FINAL; WHITE BLOOD COUNT 14.6 TH/MM3 (4.0-11.0)
[2016-09-15 04:16] LABS: PROTHROMBIN TIME - PATIENT 10.9 SEC (9.8-11.6)
[2016-09-15] MEDS ORDERED: HEPARIN SODIUM - SQ 10,000 UNITS/ML VIAL ONE ×2 (06:28→10:52)
[2016-09-15] MEDS ORDERED: THROMBIN (TOPICAL) 20,000 UNIT SPRAY KIT ONE (06:28)
[2016-09-15] MEDS ORDERED: LACTATED RINGER'S 1000 ML INJ 1,000 ML IV SCH (07:35)
[2016-09-15] MEDS ORDERED: ENOXAPARIN SODIUM 30 MG/0.3 ML SYRINGE SQ SCH (08:00)
[2016-09-15 08:25] LABS: APTT (PATIENT) 28.2 SEC (24.3-30.1)
[2016-09-15] MEDS ORDERED: ceFAZolin INJ 1,000 MG VIAL IV ONE (08:50)
[2016-09-15] MEDS ORDERED: HEPARIN SODIUM - IV 10,000 UNITS/10 ML VIAL ONE (09:30)
--- NOTE | 2016-09-15 11:36 | EKG ---
Date Performed: 09/14/2016 Time Performed: 22:44:52 PTAGE: 86 years EKG: Sinus rhythm Since previous tracing, no significant change noted NORMAL ECG PREVIOUS TRACING : 05/14/2011 17.24 DOCTOR: Suleman Adams Interpretating Date/Time 09/15/2016 11:34:35
[2016-09-15] MEDS ORDERED: LACTATED RINGER'S 1000 ML INJ 1,000 ML IV ONE (12:00)
[2016-09-15] MEDS ORDERED: PHENYLEPH/NS 1000 MCG/10 ML SYR IV ONE (12:00)
[2016-09-15] MEDS ORDERED: ONDANSETRON HCL 4 MG/2 ML VIAL IV PUSH ONE (12:00)
[2016-09-15] MEDS ORDERED: NORMOSOL R INJ 2,000 ML IV ONE (12:00)
[2016-09-15] MEDS ORDERED: ePHEDrine/NS 25 MG/5 ML SYR IV ONE (12:00)
[2016-09-15] MEDS ORDERED: PROPOFOL 200 MG/20 ML AMP IV ONE (12:00)
[2016-09-15] MEDS ORDERED: PROTAMINE SULFATE 50 MG/5 ML VIAL IV ONE (12:00)
[2016-09-15] MEDS ORDERED: SODIUM CHLORID 0.9% 500 ML INJ 500 ML IV ONE (12:00)
[2016-09-15] MEDS ORDERED: HYDROmorphone HCL PF 1 MG/ML VIAL ONE (12:24)
--- NOTE | 2016-09-15 12:37 | HHI.PR ---
cc: Nando Ferguson MD Immediate Post Op Note Procedure Date: Sep 15, 2016 Pre Op Diagnosis: severe PAD, L foot tissue loss Post Op Diagnosis: severe PAD, L foot tissue loss Surgeon: Nick Yusuf Ventilating Expert(s): April Wilcox Procedure: 1. L iliofemoral bypass with 8mm Dacron 2. L LE angiogram 3. L fem-peroneal bypass with cryo vein Findings: severe inflow and outflow disease Additional Information: + DP signal at end of case Complications: none apparent Specimen(s) removed: none for pathology Estimated blood loss: 200mL Anesthesia: General Drains: None Fluids: 3000mL x'oid; 1600mL UOP IVF Patient to: Other ([facility]) Patient Condition: Fair Implant/Devices: SEE IMPLANT LOG (if applicable) Date/Time of Procedure: SEE SURGICAL CARE RECORD Nick Yusuf MD Sep 15, 2016 12:37
[2016-09-15] MEDS ORDERED: fentaNYL CITRATE 250 MCG/5 ML AMP ONE (13:18)
[2016-09-15] MEDS ORDERED: MIDAZOLAM HCL 2 MG/2 ML VIAL ONE (13:18)
[2016-09-15 14:23] LABS: HEMATOCRIT 29.8 % (39.0-51.0); MEAN CORPUSCULAR HEMOGLOBIN 28.6 PG (27.0-34.0); MEAN CORPUSCULAR HGB CONC 33.3 % (32.0-36.0); PLATELET COUNT 400 TH/MM3 (150-450); RED BLOOD COUNT 3.47 MIL/MM3 (4.50-5.90); RED CELL DISTRIBUTION WIDTH 13.3 % (11.6-17.2); REVIEW FLAG FINAL; WHITE BLOOD COUNT 24.4 TH/MM3 (4.0-11.0)
--- NOTE | 2016-09-15 14:41 | HHI.PR ---
Subjective Subjective Remarks S/P . L iliofemoral bypass/ L LE angiogram/L fem-peroneal bypass with cryo vein seen post op in CV ICU c/p left leg pain provena dressing to left groin BP stable, chelsey in place Review of Systems Constitutional Constitutional Remarks 12 point ROS difficult to obtain Vitals/Results Intake & Output 09/14/16 09/14/16 09/15/16 15:00 23:00 07:00 Intake Total 480 ml 1800 ml 0 ml Output Total 800 ml 350 ml 200 ml Balance -320 ml 1450 ml -200 ml Intake Oral 480 ml 240 ml 0 ml IV Total 1560 ml Output Urine Total 800 ml 350 ml 200 ml Vital Signs Vital Signs Date Time Temp Pulse Resp B/P Pulse Ox O2 Delivery O2 Flow Rate FiO2 09/15/16 04:00 96.8 63 17 152/67 99 09/15/16 00:00 97.8 69 16 124/58 97 09/14/16 20:00 97.2 75 17 112/55 98 09/14/16 20:00 72 09/14/16 16:00 97.1 77 20 101/50 96 CBC/BMP: 09/15/16 1353 09/14/16 0811 Lab Results Laboratory Tests Test 09/14/16 09/15/16 09/15/16 09/15/16 21:29 03:44 07:25 08:28 Activated Partial 59.9 SEC 28.2 SEC Thromboplast Time White Blood Count 14.6 TH/MM3 Red Blood Count 3.88 MIL/MM3 Hemoglobin 11.4 GM/DL Hematocrit 33.5 % Mean Corpuscular Volume 86.5 FL Mean Corpuscular Hemoglobin 29.3 PG Mean Corpuscular Hemoglobin 33.9 % Concent Red Cell Distribution Width 13.1 % Platelet Count 430 TH/MM3 Mean Platelet Volume 7.8 FL Prothrombin Time 10.9 SEC Prothromb Time International 1.0 RATIO Ratio Blood Type A POSITIVE Antibody Screen NEGATIVE Crossmatch Leukocyte-Reduced Red Blood Cells Blood Bank Comment Test 09/15/16 13:53 White Blood Count 24.4 TH/MM3 Red Blood Count 3.47 MIL/MM3 Hemoglobin 9.9 GM/DL Hematocrit 29.8 % Mean Corpuscular Volume 86.0 FL Mean Corpuscular Hemoglobin 28.6 PG Mean Corpuscular Hemoglobin 33.3 % Concent Red Cell Distribution Width 13.3 % Platelet Count 400 TH/MM3 Mean Platelet Volume 7.9 FL Physical Exam General General Appearance: Well Developed, Well Nourished, No Acute Distress, Comfortable Eyes Eye Exam: Pupils Equal, Pupils Reactive Ears & Nose Ears & Nose Exam: Nasal Mucosa [place] Throat Throat Exam: Oral Mucosa [place] & Moist Neck Neck Exam: Neck Supple, Trachea Midline Pulmonary Resp Exam: Clear Bilaterally, No Distress Cardiology CV Exam: Regular, Good Perfusion Gastrointestinal/Abdomen GI Exam: Soft, Non-Tender, Bowel Sounds Present, Non-Distended Musculoskeletal MS Exam: Joints Intact Integumentary Skin Exam: Warm Extremeties Extremeties Remarks toes slightly warmer, left groin with Provena dressing intact. Doppler pulse, faint. Left great toe necrotic, Toes and up to mid foot with discoloration faint pulse right foot Neurologic Neuro Exam: Awake, Oriented, Speech Clear, Moving All Extremities, No Focal Deficits Psychiatric Psych Exam: Appropriate Responses VTE Prophylaxis VTE Prophylaxis Meds: Lovenox Assessment/Plan Assessment/Plan Peripheral artery disease, gangrene of the great toe of the left foot, leukocytosis mild, hyponatremia mild, hyperglycemia with diet-controlled diabetes type 2, anemia mild, mildly elevated platelet count hypertension. Acute kidney injury S/P S/P . L iliofemoral bypass/ L LE angiogram/L fem-peroneal bypass with cryo vein 09/15 Plan: Gangrenous great toe with left foot appreciate vascular surgery consult. S/P S/P . L iliofemoral bypass/ L LE angiogram/L fem-peroneal bypass with cryo vein 09/15 post op care, pt. now in [facility]ICU [facility] consulted pain management vascular checks EBL 200, HH dropped to 9.9/29.8 from 11.4/33.5, T & C done repeat CBC in am started on ASA today Leukocytosis increased today, 24.4 monitor CBC, fever. Diabetes type 2 uncontrolled on admission -Accu-Cheks with sliding scale -ADA diet Hypertension, controlled -continue with with medical management Acute kidney injury, resolved -continue with IVF dropped HH, monitor CBC Condition guarded [facility] now following while in ICU Labs in am D/W RN D/W Dr. Driver D/W pt This patient was seen by myself and Dr. Driver, this note is written on his behalf. Kaylene Barton Sep 15, 2016 14:41
[2016-09-15 14:45] LABS: BICARBONATE 22.7 MEQ/L (21.0-32.0); POTASSIUM 3.6 MEQ/L (3.5-5.1)
--- NOTE | 2016-09-15 15:10 | PD.VS.PN ---
Subjective POD #: 0 Procedure(s): L ilioprofunda bypass, L fem-peroneal bypass Subjective/Hospital Course Somnolent but TOMPKINS and arousable Pain seems to be controlled Objective Vitals/I&O Date Time Temp Pulse Resp B/P Pulse Ox O2 Delivery O2 Flow Rate FiO2 09/15/16 04:00 96.8 63 17 152/67 99 09/15/16 00:00 97.8 69 16 124/58 97 09/14/16 20:00 97.2 75 17 112/55 98 09/14/16 20:00 72 09/14/16 16:00 97.1 77 20 101/50 96 09/15/16 09/15/16 09/15/16 07:00 15:00 23:00 Intake Total 0 ml 420 ml Output Total 200 ml Balance -200 ml 420 ml Exam: groin incision with VAC Lower leg incision c/d/i + DP signal at foot Foot warm Laboratory Laboratory Tests Test 09/14/16 09/15/16 09/15/16 09/15/16 21:29 03:44 07:25 08:28 Activated Partial 59.9 28.2 Thromboplast Time White Blood Count 14.6 Red Blood Count 3.88 Hemoglobin 11.4 Hematocrit 33.5 Mean Corpuscular Volume 86.5 Mean Corpuscular Hemoglobin 29.3 Mean Corpuscular Hemoglobin 33.9 Concent Red Cell Distribution Width 13.1 Platelet Count 430 Mean Platelet Volume 7.8 Prothrombin Time 10.9 Prothromb Time International 1.0 Ratio Blood Type A POSITIVE Antibody Screen NEGATIVE Crossmatch Leukocyte-Reduced Red Blood Cells Blood Bank Comment Test 09/15/16 13:53 White Blood Count 24.4 Red Blood Count 3.47 Hemoglobin 9.9 Hematocrit 29.8 Mean Corpuscular Volume 86.0 Mean Corpuscular Hemoglobin 28.6 Mean Corpuscular Hemoglobin 33.3 Concent Red Cell Distribution Width 13.3 Platelet Count 400 Mean Platelet Volume 7.9 Sodium Level 137 Potassium Level 3.6 Chloride Level 104 Carbon Dioxide Level 22.7 Anion Gap 10 Blood Urea Nitrogen 19 Creatinine 0.93 Estimat Glomerular Filtration 77 Rate Random Glucose 132 Calcium Level 7.8 Assessment and Plan Plan 1. MIVF 2. OOB TC in a.m. 3. PT 4. hep gtt at 1800 tonight. Nick Yusuf MD Sep 15, 2016 15:10
--- NOTE | 2016-09-15 15:33 | PD.CONS ---
HPI Service Critical Care Medicine Consult Requested By Primary Care Physician Jamaal Castillo M.D. History of Present Illness This is an 86-year-old male patient with a medical history significant for CVA, PAD, PVD, and hypertension. The patient presented to the hospital 09/12/2016, with noted necrotic area on the left great toe, and vascular insufficiency. Vascular surgery was consult and today the patient underwent left lower extremity angiogram, and is status post iliofemoral bypass, and left femoral peroneal bypass with Cryovein. Critical care medicine was consulted. Review of Systems ROS Limitations: Clinical Condition, Hearing Impaired Past Family Social History Allergies: Coded Allergies: No Known Allergies (Verified , 09/12/16) Reported Medications see MAR Active Ordered Medications see MAR Physical Exam Vital Signs Vital Signs Date Time Temp Pulse Resp B/P Pulse Ox O2 Delivery O2 Flow Rate FiO2 09/15/16 04:00 96.8 63 17 152/67 99 09/15/16 00:00 97.8 69 16 124/58 97 09/14/16 20:00 97.2 75 17 112/55 98 09/14/16 20:00 72 09/14/16 16:00 97.1 77 20 101/50 96 Physical Exam GENERAL: Elderly-appearing male of appropriate stated age, confused, answering questions inappropriately. SKIN: Warm and dry. Noted necrotic area left great toe. Hyperemic areas bilateral lower extremities. HEAD: Atraumatic. Normocephalic. EYES: Pupils equal and round. No scleral icterus. No injection or drainage. ENT: No nasal bleeding or discharge. Mucous membranes pink and moist. Uvula midline. Mallampati 2 NECK: Trachea midline. No JVD. CARDIOVASCULAR: Normal rate, regular rhythm. RESPIRATORY: No accessory muscle use. Clear to auscultation. Breath sounds equal bilaterally. GASTROINTESTINAL: Abdomen soft, non-tender, nondistended. No guarding. MUSCULOSKELETAL: Extremities without clubbing, cyanosis, or edema. Left great toe necrotic area. Weak dopplerable pulses noted NEUROLOGICAL: Awake and alert. RASS 0. No gross focal/sensory deficits. Follows commands in all 4 extremities. Laboratory Laboratory Tests Test 09/14/16 09/15/16 09/15/16 09/15/16 21:29 03:44 07:25 08:28 Activated Partial 59.9 28.2 Thromboplast Time White Blood Count 14.6 Red Blood Count 3.88 Hemoglobin 11.4 Hematocrit 33.5 Mean Corpuscular Volume 86.5 Mean Corpuscular Hemoglobin 29.3 Mean Corpuscular Hemoglobin 33.9 Concent Red Cell Distribution Width 13.1 Platelet Count 430 Mean Platelet Volume 7.8 Prothrombin Time 10.9 Prothromb Time International 1.0 Ratio Blood Type A POSITIVE Antibody Screen NEGATIVE Crossmatch Leukocyte-Reduced Red Blood Cells Blood Bank Comment Test 09/15/16 13:53 White Blood Count 24.4 Red Blood Count 3.47 Hemoglobin 9.9 Hematocrit 29.8 Mean Corpuscular Volume 86.0 Mean Corpuscular Hemoglobin 28.6 Mean Corpuscular Hemoglobin 33.3 Concent Red Cell Distribution Width 13.3 Platelet Count 400 Mean Platelet Volume 7.9 Sodium Level 137 Potassium Level 3.6 Chloride Level 104 Carbon Dioxide Level 22.7 Anion Gap 10 Blood Urea Nitrogen 19 Creatinine 0.93 Estimat Glomerular Filtration 77 Rate Random Glucose 132 Calcium Level 7.8 Result Diagram: 09/15/16 1353 09/15/16 1353 Imaging Last Impressions Chest X-Ray 09/13/16 0000 Signed Impressions: Service Date/Time: Tuesday, September 13, 2016 16:51 - CONCLUSION: 1. No acute findings. Mildly tortuous aorta. Hamlet Soliz MD Septic Shock Reassessment Heart: Regular rate and rhythm Lungs: Clear Skin: Warm Assessment and Plan Assessment and Plan Plan by systems: Neurologic: Altered mental status History of CVA Hard of hearing Postoperative pain --Patient alert to name and birthdate, of note patient is status post general anesthesia, recently received Dilaudid. Will continue to monitor --Dilaudid, oxycodone PRN for postop surgical pain --Tylenol when necessary Respiratory: --Duo nebs when necessary --Aggressive pulmonary toileting, begin incentive spirometry every hour while awake --Maintain head of bed 30 -Provide supplemental O2 via nasal cannula, to maintain O2 sat greater than 92% Cardiovascular: History of carotid endarterectomy PAD PVD S/P iliofemoral bypass, left femoral peroneal bypass with CryoVein POD #1 --Per telemetry normal sinus rhythm --Resume antihypertensive meds, Lopressor, lisinopril but maintain MAP > 65 mmHG --Monitor peripheral pulses per protocol --Resume heparin infusion at 1800 per vascular surgery recommendations --Continue Plavix Renal: -- Strict I/Os FEN/GI: --Monitor BMP --Continue IV fluids LR at 63 cc an hour --Replete electrolytes per ICU protocol --Obtain formal swallow secondary to confusion before initiation of regular diet Heme/ID: Monitor CBC Endocrine: Glucose monitoring per ICU protocol -- SSI Msk: Kyphosis --PT evaluation and treat --Out of bed to chair and a.m. --Position patient for comfort Prophylaxis: GI Prophylaxis Pepcid DVT Prophylaxis -- SCDs Heparin infusion to be reinstituted this evening per vascular surgery Lines: Right radial a line #1, peripheral IVs 2 Dispo: This patient remains critically ill with one or more organ systems which are or may become a threat to life. I have spent in excess of 39 minutes discontinuously in the care and management of this patient. This time is exclusive of procedures, and includes, but is not limited to, evaluation of the patient, review of the medical record, discussions with family, consultants, nursing staff, or respiratory therapy, and documentation in the medical record. Code Status Full Discussed Condition With H[employer]PER[employer] at bedside. Karen Brown MD Sep 15, 2016 15:33
[2016-09-15 15:51] LABS: APTT (PATIENT) 30.3 SEC (24.3-30.1); INTERNATIONAL NORMALIZED RATIO 1.1 RATIO; PROTHROMBIN TIME - PATIENT 11.7 SEC (9.8-11.6)
[2016-09-15] MEDS ORDERED: RESP: ALBUTEROL 2.5 MG/IPRATROPIUM 0.5 MG NEB (PRN) NEB (16:00)
[2016-09-15] MEDS: SODIUM CHLOR 0.9% 1000 ML INJ 1,000 ML IV SCH (16:08)
[2016-09-15] MEDS: LACTATED RINGER'S 1000 ML INJ 1,000 ML IV SCH (16:27)
[2016-09-15] MEDS: HEPARIN-D5W INJ 250 ML IV SCH (18:24)
[2016-09-15] MEDS: METOPROLOL TARTRATE 25 MG TAB PO SCH (20:49)
[2016-09-15] MEDS: DOCUSATE SODIUM 50 MG/SENNA 8.6 MG TAB PO SCH (20:49)
[2016-09-15] MEDS: FAMOTIDINE 20 MG TAB PO SCH (20:50)
[2016-09-15] MEDS: SODIUM CHLORIDE 0.9% FLUSH 10 ML FLUSH IV FLUSH SCH (20:50)
[2016-09-15] MEDS: HYDROmorphone HCL 2 MG TAB PO PRN (20:51)
[2016-09-15] MEDS ORDERED: METOPROLOL TARTRATE 5 MG/5 ML VIAL ONE (21:49)
[2016-09-15] MEDS: METOPROLOL TARTRATE 5 MG/5 ML VIAL IV PUSH PRN (21:55)
[2016-09-16] VITALS (13 sets, daily range): BP systolic 153–200; BP diastolic 66–91; PULSE 70–114; RESP 18–20; TEMP 98–99.6; O2SAT 97–99
[2016-09-16] MEDS: HYDROmorphone HCL 2 MG TAB PO PRN ×4 (01:15→20:47)
[2016-09-16] MEDS: METOPROLOL TARTRATE 5 MG/5 ML VIAL IV PUSH PRN ×3 (01:15→16:15)
[2016-09-16 02:19] LABS: APTT (PATIENT) 52.3 SEC (24.3-30.1)
[2016-09-16 05:00] LABS: HEMATOCRIT 26.8 % (39.0-51.0); MEAN CELL VOLUME 85.4 FL (80.0-100.0); MEAN CORPUSCULAR HEMOGLOBIN 29.2 PG (27.0-34.0); MEAN CORPUSCULAR HGB CONC 34.2 % (32.0-36.0); PLATELET COUNT 356 TH/MM3 (150-450); RED BLOOD COUNT 3.14 MIL/MM3 (4.50-5.90); RED CELL DISTRIBUTION WIDTH 13.2 % (11.6-17.2); REVIEW FLAG FINAL; WHITE BLOOD COUNT 15.2 TH/MM3 (4.0-11.0)
[2016-09-16 05:33] LABS: BICARBONATE 24.1 MEQ/L (21.0-32.0)
[2016-09-16] MEDS: LACTATED RINGER'S 1000 ML INJ 1,000 ML IV SCH ×2 (06:49→21:15)
--- NOTE | 2016-09-16 07:51 | HHI.CCPN ---
Subjective Remarks/Hospital Course This is an 86-year-old male patient with a medical history significant for CVA, PAD, PVD, and hypertension. The patient presented to the hospital 09/12/2016, with noted necrotic area on the left great toe, and vascular insufficiency. Vascular surgery was consult and today the patient underwent left lower extremity angiogram, and is status post iliofemoral bypass, and left femoral peroneal bypass with Cryovein. Critical care medicine was consulted. Subjective: 09/16: TMax 98.0. Overnight the patient had episodes of hypertension, requiring Lopressor 2 doses. Heparin infusion reinitiated last p.m., currently at 1200 units/hour. Patient's pain more well controlled today. Bilateral DP pulses improved by Doppler, signal strong. Objective Vital Signs Date Time Temp Pulse Resp B/P Pulse Ox O2 Delivery O2 Flow Rate FiO2 09/16/16 04:00 98.0 72 20 177/78 99 09/16/16 04:00 Nasal Cannula 2.00 Intake and Output 09/15/16 09/15/16 09/16/16 08:00 16:00 00:00 Intake Total 420 ml 126 ml Output Total 200 ml 1100 ml Balance 220 ml -974 ml Result Diagram: 09/16/16 0445 09/16/16 0445 Imaging Last Impressions Chest X-Ray 09/13/16 0000 Signed Impressions: Service Date/Time: Tuesday, September 13, 2016 16:51 - CONCLUSION: 1. No acute findings. Mildly tortuous aorta. Hamlet Soliz MD Objective Remarks BP 116/68 pulse 83 O2 sat 98% on 2 L/m nasal cannula GENERAL: Elderly-appearing male of appropriate stated age, alert and oriented 3. SKIN: Warm and dry. Noted necrotic area left great toe. HEAD: Atraumatic. Normocephalic. EYES: Pupils equal and round. No scleral icterus. No injection or drainage. ENT: No nasal bleeding or discharge. Mucous membranes pink and moist. Uvula midline. Mallampati 2 NECK: Trachea midline. No JVD. CARDIOVASCULAR: Normal rate, regular rhythm. RESPIRATORY: No accessory muscle use. Clear to auscultation. Breath sounds equal bilaterally. GASTROINTESTINAL: Abdomen soft, non-tender, nondistended. No guarding. MUSCULOSKELETAL: Extremities without clubbing, cyanosis, or edema. Left great toe necrotic area. Biphasic pulses bilateral dorsalis pedis NEUROLOGICAL: Awake and alert. GCS 15 .RASS 0. No gross focal/sensory deficits. Follows commands in all 4 extremities. Urinary Catheter: Yes A/P Assessment and Plan Plan by systems: Neurologic: Altered mental status History of CVA Hard of hearing Postoperative pain-resolved --GCS 15, patient alert and oriented --Dilaudid, oxycodone PRN for postop surgical pain --Tylenol when necessary Respiratory: --Duo nebs when necessary --Continue incentive spirometry every hour while awake --Maintain head of bed 30 -Provide supplemental O2 via nasal cannula, to maintain O2 sat greater than 92% Cardiovascular: History of carotid endarterectomy PAD PVD S/P iliofemoral bypass, left femoral peroneal bypass with CryoVein POD #1 --Per telemetry normal sinus rhythm --This a.m. antihypertensive meds continued- Lopressor, lisinopril but maintain MAP > 65 mmHG --Monitor peripheral pulses per protocol --Vascular surgery management heparin infusion 1200 units/hour --Continue Plavix Renal: --Discontinue Jones today -- Strict I/Os FEN/GI: --Monitor BMP --Wean IV fluids -Regular heart healthy diet --Replete electrolytes per ICU protocol Heme/ID: Monitor CBC Endocrine: Glucose monitoring per ICU protocol -- SSI Msk: Kyphosis --PT evaluation and treat --Out of bed to chair today --Position patient for comfort Prophylaxis: GI Prophylaxis Pepcid DVT Prophylaxis -- SCDs Heparin infusion per vascular surgery Lines: Right radial a line #2, peripheral IVs 2 Dispo: Level 3. Critical care medicine will sign off thank you for the consult. Physician Karen Lilly MD Sep 16, 2016 07:51
--- NOTE | 2016-09-16 08:36 | PD.VS.PN ---
Subjective POD #: 1 Procedure(s): L ilioprofunda bypass, L fem-peroneal bypass, angiogram Subjective/Hospital Course Awake and alert, doing well foot feels good Pain controlled with pain meds Objective Vitals/I&O Date Time Temp Pulse Resp B/P Pulse Ox O2 Delivery O2 Flow Rate FiO2 09/16/16 04:00 98.0 72 20 177/78 99 09/16/16 04:00 99 Nasal Cannula 2.00 09/16/16 04:00 72 09/16/16 00:00 70 09/16/16 00:00 71 20 186/72 99 09/16/16 00:00 99 Nasal Cannula 2.00 09/15/16 20:00 98 09/15/16 20:00 99 Nasal Cannula 2.00 09/15/16 20:00 98.8 99 22 195/87 99 09/15/16 19:35 98 Nasal Cannula 3.00 09/15/16 17:26 16 09/15/16 16:00 98.4 103 16 126/65 98 09/15/16 15:00 94 09/15/16 13:10 96.6 69 16 136/103 99 Exam: L groin VAC in place Lower leg incision c/d/i + DP signal Laboratory Laboratory Tests Test 09/15/16 09/15/16 09/16/16 09/16/16 13:53 15:25 01:25 04:45 White Blood Count 24.4 15.2 Red Blood Count 3.47 3.14 Hemoglobin 9.9 9.2 Hematocrit 29.8 26.8 Mean Corpuscular Volume 86.0 85.4 Mean Corpuscular Hemoglobin 28.6 29.2 Mean Corpuscular Hemoglobin 33.3 34.2 Concent Red Cell Distribution Width 13.3 13.2 Platelet Count 400 356 Mean Platelet Volume 7.9 7.9 Sodium Level 137 134 Potassium Level 3.6 4.0 Chloride Level 104 102 Carbon Dioxide Level 22.7 24.1 Anion Gap 10 8 Blood Urea Nitrogen 19 17 Creatinine 0.93 0.97 Estimat Glomerular Filtration 77 73 Rate Random Glucose 132 143 Calcium Level 7.8 7.9 Prothrombin Time 11.7 Prothromb Time International 1.1 Ratio Activated Partial 30.3 52.3 Thromboplast Time Assessment and Plan Plan 1. HL MIVF if betty po 2. OOB TC and PT consult 3. continue hep gtt for graft protection 4. D/C [facility] 5. Out of ICU likely tomorrow Nick Yusuf MD Sep 16, 2016 08:36
[2016-09-16] MEDS: METOPROLOL TARTRATE 25 MG TAB PO SCH ×2 (08:38→20:42)
[2016-09-16] MEDS: LISINOPRIL 20 MG TAB PO SCH (08:38)
[2016-09-16] MEDS: PANTOPRAZOLE SOD 40 MG DELAYED RELEASE TAB PO SCH (08:38)
[2016-09-16] MEDS: ASPIRIN 325 MG TAB PO SCH (08:38)
[2016-09-16] MEDS: DOCUSATE SODIUM 50 MG/SENNA 8.6 MG TAB PO SCH ×2 (08:39→20:41)
[2016-09-16 10:17] LABS: APTT (PATIENT) 64.1 SEC (24.3-30.1)
--- NOTE | 2016-09-16 13:15 | HHI.PR ---
Subjective Subjective Remarks S/P . L iliofemoral bypass/ L LE angiogram/L fem-peroneal bypass with cryo vein Examined in CVICU awake, oriented x 3 can't put weight on left leg, increasing pain to left groin and foot. eating okay BP up to 200s at times on heparin gtt Review of Systems Constitutional Constitutional Remarks 12 point ROS completed, negative except as noted above Vitals/Results Intake & Output 09/15/16 09/15/16 09/16/16 15:00 23:00 07:00 Intake Total 420 ml 126 ml 1698 ml Output Total 1100 ml 1275 ml Balance 420 ml -974 ml 423 ml Intake Oral 680 ml IV Total 420 ml 126 ml 1018 ml Output Urine Total 1100 ml 1275 ml # Bowel Movements 0 0 Vital Signs Vital Signs Date Time Temp Pulse Resp B/P Pulse Ox O2 Delivery O2 Flow Rate FiO2 09/16/16 11:09 98.9 77 18 167/66 09/16/16 11:00 77 09/16/16 08:50 98 Nasal Cannula 2.00 09/16/16 07:09 99.6 101 18 200/78 98 09/16/16 07:00 101 09/16/16 07:00 99.6 101 18 200/78 98 09/16/16 04:00 98.0 72 20 177/78 99 09/16/16 04:00 99 Nasal Cannula 2.00 09/16/16 04:00 72 09/16/16 00:00 70 09/16/16 00:00 71 20 186/72 99 09/16/16 00:00 99 Nasal Cannula 2.00 09/15/16 20:00 98 09/15/16 20:00 99 Nasal Cannula 2.00 09/15/16 20:00 98.8 99 22 195/87 99 09/15/16 19:35 98 Nasal Cannula 3.00 09/15/16 17:26 16 09/15/16 16:00 98.4 103 16 126/65 98 09/15/16 15:00 94 CBC/BMP: 09/16/16 0445 09/16/16 0445 Lab Results Laboratory Tests Test 09/15/16 09/15/16 09/16/16 09/16/16 13:53 15:25 01:25 04:45 White Blood Count 24.4 TH/MM3 15.2 TH/MM3 Red Blood Count 3.47 MIL/MM3 3.14 MIL/MM3 Hemoglobin 9.9 GM/DL 9.2 GM/DL Hematocrit 29.8 % 26.8 % Mean Corpuscular Volume 86.0 FL 85.4 FL Mean Corpuscular Hemoglobin 28.6 PG 29.2 PG Mean Corpuscular Hemoglobin 33.3 % 34.2 % Concent Red Cell Distribution Width 13.3 % 13.2 % Platelet Count 400 TH/MM3 356 TH/MM3 Mean Platelet Volume 7.9 FL 7.9 FL Sodium Level 137 MEQ/L 134 MEQ/L Potassium Level 3.6 MEQ/L 4.0 MEQ/L Chloride Level 104 MEQ/L 102 MEQ/L Carbon Dioxide Level 22.7 MEQ/L 24.1 MEQ/L Anion Gap 10 MEQ/L 8 MEQ/L Blood Urea Nitrogen 19 MG/DL 17 MG/DL Creatinine 0.93 MG/DL 0.97 MG/DL Estimat Glomerular Filtration 77 ML/MIN 73 ML/MIN Rate Random Glucose 132 MG/DL 143 MG/DL Calcium Level 7.8 MG/DL 7.9 MG/DL Prothrombin Time 11.7 SEC Prothromb Time International 1.1 RATIO Ratio Activated Partial 30.3 SEC 52.3 SEC Thromboplast Time Test 09/16/16 09:52 Activated Partial 64.1 SEC Thromboplast Time Physical Exam General General Appearance: Well Developed, Well Nourished, No Acute Distress, Comfortable Eyes Eye Exam: Pupils Equal, Pupils Reactive Ears & Nose Ears & Nose Exam: Nasal Mucosa [place] Throat Throat Exam: Oral Mucosa [place] & Moist Neck Neck Exam: Neck Supple, Trachea Midline Pulmonary Resp Exam: Clear Bilaterally, No Distress Cardiology CV Exam: Regular, Good Perfusion Gastrointestinal/Abdomen GI Exam: Soft, Non-Tender, Bowel Sounds Present, Non-Distended Musculoskeletal MS Exam: Joints Intact Integumentary Skin Exam: Warm Extremeties Extremeties Remarks toes slightly warmer, left groin with Provena dressing intact. incision to left calk, intact. Left Doppler pulse, intermittent Left great toe necrotic, Toes and up to mid foot with discoloration faint pulse right foot Neurologic Neuro Exam: Alert, Awake, Oriented, Speech Clear, Moving All Extremities, No Focal Deficits Psychiatric Psych Exam: Appropriate Responses VTE Prophylaxis VTE Prophylaxis Meds: Lovenox Assessment/Plan Assessment/Plan Peripheral artery disease, gangrene of the great toe of the left foot, leukocytosis mild, hyponatremia mild, hyperglycemia with diet-controlled diabetes type 2, anemia mild, mildly elevated platelet count hypertension. Acute kidney injury S/P S/P . L iliofemoral bypass/ L LE angiogram/L fem-peroneal bypass with cryo vein 09/15 Plan: Gangrenous great toe with left foot appreciate vascular surgery consult. S/P S/P . L iliofemoral bypass/ L LE angiogram/L fem-peroneal bypass with cryo vein 09/15 post op care, pt. now in CVICU CCM consulted pain management vascular checks EBL 200, HH dropped to 9.9/29.8 from 11.4/33.5, T & C done HH stable for now continue ASA Heparin gtt on for graft protection per vascular orders to remain in ICU for one more day per Dr. Yusuf's orders Leukocytosis, trending down, 15.2 monitor CBC, fever. Diabetes type 2 uncontrolled on admission -Accu-Cheks with sliding scale -ADA diet Hypertension, controlled -continue with with medical management Acute kidney injury, resolved -continue with IVF Stable Keep in ICU CCM now following while in ICU Labs in am D/W RN D/W Dr. Driver D/W pt This patient was seen by myself and Dr. Driver, this note is written on his behalf. Kaylene Barton Sep 16, 2016 13:15
--- NOTE | 2016-09-16 13:40 | MP ---
cc: MILLER YUSUF MD DATE OF SURGERY September 15, 2016 PREOPERATIVE DIAGNOSES Peripheral arterial occlusive disease. Left lower extremity tissue loss. POSTOPERATIVE DIAGNOSIS Peripheral arterial occlusive disease. Left lower extremity tissue loss. PROCEDURE 1. Left iliofemoral bypass with 8-mm Dacron 2. Left femoral-peroneal artery bypass with cryopreserved vein. 3. Left lower extremity angiogram. ATTENDING SURGEON Miller Yusuf MD UNDERWRITING SERVICE REPRESENTATIVE SURGEON April Wilcox. ANESTHESIA General. INDICATIONS Mr. Campos is an 86-year-old gentleman who has left lower extremity tissue loss. A preoperative angiogram did not determine if he has additional target or not but he clearly has some in-flow disease. He is taken to the operating room for in-flow and potential outflow as well as an angiogram to determine if he has an outflow target. DESCRIPTION OF PROCEDURE Informed consent was obtained from the patient. He was taken to the operating room and placed supine on the operating room table and appropriate time-out was taken to insure the patient's identity, operative site and planned procedure. The administration of 2 grams of Ancef was initiated prior to the skin incision and will be discontinued after a single preoperative dose. Everyone in the room agreed with the time-out and we proceeded. He was prepped from his nipples to his toes. A vertical incision was made in the patient's left groin, carried down into the subcutaneous tissue with electrocautery. The external iliac artery was identified and dissected free up underneath the inguinal ligament and was encircled with a vessel loop. The circumflex vessels were controlled and the common femoral artery proximal SFA and profunda was dissected free. We dissected the profunda down to the profunda bifurcation, each branch being controlled separately with vessel loops. A 21-gauge micropuncture needle was used to access the left common femoral artery. This was exchanged using Seldinger technique to a 4 Hebrew sheath through which the left lower extremity arteriogram was obtaiend. This showed the patient had significant common femoral and proximal profunda disease. He also has SFA occlusion, popliteal artery occlusion and may have a peroneal artery but it was difficult to opacify. The micropuncture needle was removed and the arteriotomy was closed with 6-0 Prolene suture. The patient was systemically heparinized and throughout the remainder of the case the ACT was kept greater than 250 with additional boluses of heparin. Proximal control of the external iliac artery was obtained with profunda clamps and both branches of the profunda were controlled with profunda clamps. A longitudinal arteriotomy was made with an 11 blade and extended with [place] scissors. At this point it was determined there was too much common femoral disease to perform an endarterectomy and the decision was made to perform an ilioprofunda bypass. The common femoral artery was resected and the proximal common femoral and distal external iliac artery was endarterectomized as was the profunda. The occluded SFA was suture ligated. An 8-mm Dacron was brought up onto the field, spatulated and sewn end-to-end to the external iliac artery with a generous vasquez to allow for perfusion of a large branch of the common femoral artery. This was done with running 5-0 Prolene. At the completion it was flushed, noted to be hemostatic with the repair sutures. A Adi soft gel was placed on the bypass, the bypass was cut to appropriate length, spatulated and sewn end-to-side to the endarterectomized profunda with running 6-0 Prolene suture. At the completion, it was flushed, noted to be hemostatic. The clamps were released. There were nice Doppler signals in both branches of the profunda as well as the smaller branch that was preserved at the profunda. At this point, however, there was no Doppler signal in the foot and the foot looked as profoundly ischemic as it did in the beginning of the base. An incision was made below the knee on the medial aspect of the leg, carried down through the subcutaneous tissue with electrocautery. The muscle was retracted posteriorly. The peroneal artery was identified and dissected free. It was quite diseased but I felt I could reliably suture a distal anastomosis to it. Cryopreserved vein was brought up on the field and thawed and prepared in the standard manner. A tunnel was created in between the two incisions. Proximal and distal control of the Dacron was obtained with Adi soft gel and a longitudinal graftotomy was made in the limb, extended with an 11 blade and [place] scissors. The vein was flushed, but, spatulated and sewn end-to-side to the Dacron with running 5-0 Prolene suture. At the completion it was flushed and noted to be hemostatic. The vein was distended, marked for orientation past the tunnel. Proximal and distal control of the peroneal artery was obtained with profunda clamps and a longitudinal arteriotomy was made with the 11 blade, extended with [place] scissors. The distal anastomosis was achieved by cutting the vein, spatulating it and sewing it end-to-side to the peroneal artery with running 6-0 Prolene suture. At the completion it was flushed, noted to be hemostatic. There was a Doppler signal in the reconstituted dorsalis pedis at the foot. The heparin was reversed with protamine. The wounds were irrigated, made hemostatic and closed with 2-0 Polysorb, 3-0 Polysorb, and 4-0 Monocryl. Sponge, needle and instrument counts were correct at the end of the case. I was present and scrubbed and performed the entire procedure. MD BYRON Aldana/ANDREA /4:36 PM /1:17 PM JOSELINE
[2016-09-16] MEDS: HYDROmorphone HCL PF 1 MG/ML VIAL IV PUSH PRN (16:30)
[2016-09-16] MEDS ORDERED: amLODIPine BESYLATE 5 MG TAB PO ONE (18:00)
[2016-09-16] MEDS: SODIUM CHLORIDE 0.9% FLUSH 10 ML FLUSH IV FLUSH SCH (20:41)
[2016-09-16] MEDS: FAMOTIDINE 20 MG TAB PO SCH (20:42)
[2016-09-17] VITALS (21 sets, daily range): BP systolic 114–147; BP diastolic 63–86; PULSE 76–103; RESP 16–23; TEMP 98–99.7; O2SAT 95–100
[2016-09-17 04:50] LABS: APTT (PATIENT) 81.9 SEC (24.3-30.1)
[2016-09-17] MEDS: HEPARIN-D5W INJ 250 ML IV SCH (06:57)
--- NOTE | 2016-09-17 07:59 | PD.VS.PN ---
Subjective POD #: 2 Procedure(s): L ilioprofunda bypass, L fem-peroneal bypass, angiogram Subjective/Hospital Course pain controlled betty po pain in foot with pressure on it. Objective Vitals/I&O Date Time Temp Pulse Resp B/P Pulse Ox O2 Delivery O2 Flow Rate FiO2 09/17/16 07:00 95 Nasal Cannula 4.00 09/17/16 07:00 98.1 91 18 147/84 95 09/17/16 07:00 91 09/17/16 06:00 77 09/17/16 05:00 87 09/17/16 04:00 76 09/17/16 03:00 98 Nasal Cannula 4.00 09/17/16 03:00 98.1 83 16 138/86 99 09/17/16 03:00 83 09/17/16 02:00 79 09/17/16 01:00 83 09/17/16 00:00 93 09/16/16 23:00 98.4 97 18 153/68 97 09/16/16 23:00 97 Nasal Cannula 4.00 09/16/16 23:00 97 09/16/16 22:00 106 09/16/16 21:00 114 09/16/16 20:00 89 09/16/16 20:00 98 Nasal Cannula 4.00 09/16/16 20:00 98.4 89 18 154/91 98 09/16/16 19:20 Nasal Cannula 4.00 09/16/16 19:00 101 09/16/16 15:00 80 09/16/16 11:09 98.9 77 18 167/66 09/16/16 11:00 77 09/16/16 08:50 98 Nasal Cannula 2.00 09/17/16 09/17/16 09/17/16 07:00 15:00 23:00 Intake Total 1371 ml Output Total 1735 ml Balance -364 ml Exam: L groin incision w/ VAC in place BK incision ok Foot warm Dry gangrene great toe but no surrounding cellulitis Pulses: + DP signal Laboratory Laboratory Tests Test 09/16/16 09/17/16 09:52 04:17 Activated Partial 64.1 81.9 Thromboplast Time Assessment and Plan Plan 1. Needs aggressive PT with leg straightening and ambulation 2. continue hep gtt for graft protection - will start coumadin today 3. Ok to transfer out of ICU Discharge Planning 5-7 days Nick Yusuf MD Sep 17, 2016 07:59
[2016-09-17] MEDS: METOPROLOL TARTRATE 25 MG TAB PO SCH ×2 (09:00→20:53)
[2016-09-17] MEDS: amLODIPine BESYLATE 5 MG TAB PO SCH (09:00)
[2016-09-17] MEDS: LISINOPRIL 20 MG TAB PO SCH (09:00)
[2016-09-17] MEDS: DOCUSATE SODIUM 50 MG/SENNA 8.6 MG TAB PO SCH ×2 (09:00→20:54)
[2016-09-17] MEDS: PANTOPRAZOLE SOD 40 MG DELAYED RELEASE TAB PO SCH (09:02)
[2016-09-17] MEDS: SODIUM CHLORIDE 0.9% FLUSH 10 ML FLUSH IV FLUSH SCH ×2 (09:03→20:53)
[2016-09-17] MEDS: ASPIRIN 325 MG TAB PO SCH (09:03)
--- NOTE | 2016-09-17 13:01 | HHI.PR ---
Subjective Subjective Remarks S/P . L iliofemoral bypass/ L LE angiogram/L fem-peroneal bypass with cryo vein awake, oriented x 3 can't put weight on left leg, has pain on hep gtt BP better eating okay Review of Systems Constitutional Constitutional Remarks 12 point ROS completed, negative except as noted above Vitals/Results Intake & Output 09/16/16 09/16/16 09/17/16 15:00 23:00 07:00 Intake Total 1371 ml Output Total 1735 ml Balance -364 ml Intake Oral 480 ml IV Total 891 ml Output Urine Total 1735 ml # Bowel Movements 0 Vital Signs Vital Signs Date Time Temp Pulse Resp B/P Pulse Ox O2 Delivery O2 Flow Rate FiO2 09/17/16 12:04 89 09/17/16 11:18 98.0 94 18 130/77 98 09/17/16 11:18 85 09/17/16 11:18 98 Nasal Cannula 4.00 09/17/16 07:00 95 Nasal Cannula 4.00 09/17/16 07:00 98.1 91 18 147/84 95 09/17/16 07:00 91 09/17/16 06:00 77 09/17/16 05:00 87 09/17/16 04:00 76 09/17/16 03:00 98 Nasal Cannula 4.00 09/17/16 03:00 98.1 83 16 138/86 99 09/17/16 03:00 83 09/17/16 02:00 79 09/17/16 01:00 83 09/17/16 00:00 93 09/16/16 23:00 98.4 97 18 153/68 97 09/16/16 23:00 97 Nasal Cannula 4.00 09/16/16 23:00 97 09/16/16 22:00 106 09/16/16 21:00 114 09/16/16 20:00 89 09/16/16 20:00 98 Nasal Cannula 4.00 09/16/16 20:00 98.4 89 18 154/91 98 09/16/16 19:20 Nasal Cannula 4.00 09/16/16 19:00 101 09/16/16 15:00 80 CBC/BMP: 09/16/16 0445 09/16/16 0445 Lab Results Laboratory Tests Test 09/17/16 04:17 Activated Partial 81.9 SEC Thromboplast Time Physical Exam General General Appearance: Well Developed, Well Nourished, No Acute Distress, Comfortable Eyes Eye Exam: Pupils Equal, Pupils Reactive Ears & Nose Ears & Nose Exam: Nasal Mucosa [place] Throat Throat Exam: Oral Mucosa [place] & Moist Neck Neck Exam: Neck Supple, Trachea Midline Pulmonary Resp Exam: Clear Bilaterally, No Distress Cardiology CV Exam: Regular, Good Perfusion Gastrointestinal/Abdomen GI Exam: Soft, Non-Tender, Bowel Sounds Present, Non-Distended Musculoskeletal MS Exam: Joints Intact Integumentary Skin Exam: Warm Extremeties Extremeties Remarks toes slightly warmer, left groin with Provena dressing intact. incision to left calk, intact. Left Doppler pulse, intermittent Left great toe necrotic, Toes and up to mid foot with discoloration faint pulse right foot Neurologic Neuro Exam: Alert, Awake, Oriented, Speech Clear, Moving All Extremities, No Focal Deficits Psychiatric Psych Exam: Appropriate Responses VTE Prophylaxis VTE Prophylaxis Meds: Lovenox Assessment/Plan Assessment/Plan Peripheral artery disease, gangrene of the great toe of the left foot, leukocytosis mild, hyponatremia mild, hyperglycemia with diet-controlled diabetes type 2, anemia mild, mildly elevated platelet count hypertension. Acute kidney injury S/P S/P . L iliofemoral bypass/ L LE angiogram/L fem-peroneal bypass with cryo vein 09/15 Plan: Gangrenous great toe with left foot appreciate vascular surgery consult. S/P S/P . L iliofemoral bypass/ L LE angiogram/L fem-peroneal bypass with cryo vein 09/15 post op care, pt. now in CVICU [facility] consulted pain management vascular checks EBL 200, HH dropped to 9.9/29.8 from 11.4/33.5, T & C done HH stable for now continue ASA Heparin gtt on for graft protection per vascular orders, will be transition to Coumadin Leukocytosis, trending down, 15.2 monitor CBC, fever. Diabetes type 2 uncontrolled on admission -Accu-Cheks with sliding scale -ADA diet Hypertension, controlled -continue with with medical management Acute kidney injury, resolved -continue with IVF Continue with PT follow INR daily CM for dc planning, SNF placement D/W RN D/W Dr. Driver D/W pt This patient was seen by myself and Dr. Driver, this note is written on his behalf. Kaylene Barton Sep 17, 2016 13:01
[2016-09-17] MEDS: LACTATED RINGER'S 1000 ML INJ 1,000 ML IV SCH (13:49)
[2016-09-17] MEDS: HYDROmorphone HCL 2 MG TAB PO PRN (14:36)
[2016-09-17] MEDS: WARFARIN SOD 5 MG TAB PO SCH (16:07)
[2016-09-17 16:59] LABS: APTT (PATIENT) 37.4 SEC (24.3-30.1)
[2016-09-17] MEDS: FAMOTIDINE 20 MG TAB PO SCH (20:54)
[2016-09-17 23:56] LABS: APTT (PATIENT) 48.7 SEC (24.3-30.1)
[2016-09-18] VITALS (26 sets, daily range): BP systolic 136–155; BP diastolic 62–76; PULSE 67–95; RESP 18–20; TEMP 98.2–99.1; O2SAT 95–99
[2016-09-18] MEDS: LACTATED RINGER'S 1000 ML INJ 1,000 ML IV SCH ×2 (04:04→23:10)
[2016-09-18 06:51] LABS: HEMATOCRIT 25.5 % (39.0-51.0); MEAN CELL VOLUME 85.8 FL (80.0-100.0); MEAN CORPUSCULAR HEMOGLOBIN 29.4 PG (27.0-34.0); MEAN CORPUSCULAR HGB CONC 34.3 % (32.0-36.0); PLATELET COUNT 308 TH/MM3 (150-450); RED BLOOD COUNT 2.98 MIL/MM3 (4.50-5.90); RED CELL DISTRIBUTION WIDTH 13.2 % (11.6-17.2); REVIEW FLAG FINAL; WHITE BLOOD COUNT 15.4 TH/MM3 (4.0-11.0)
[2016-09-18 07:16] LABS: APTT (PATIENT) 57.5 SEC (24.3-30.1)
[2016-09-18] MEDS: ASPIRIN 325 MG TAB PO SCH (08:10)
[2016-09-18] MEDS: METOPROLOL TARTRATE 25 MG TAB PO SCH ×2 (08:10→21:02)
[2016-09-18] MEDS: PANTOPRAZOLE SOD 40 MG DELAYED RELEASE TAB PO SCH (08:10)
[2016-09-18] MEDS: DOCUSATE SODIUM 50 MG/SENNA 8.6 MG TAB PO SCH ×2 (08:11→21:00)
[2016-09-18] MEDS: LISINOPRIL 20 MG TAB PO SCH (08:11)
[2016-09-18] MEDS: SODIUM CHLORIDE 0.9% FLUSH 10 ML FLUSH IV FLUSH SCH ×2 (08:11→21:03)
[2016-09-18] MEDS: amLODIPine BESYLATE 5 MG TAB PO SCH (08:11)
--- NOTE | 2016-09-18 09:56 | PD.VS.PN ---
Subjective POD #: 3 Procedure(s): L ilioprofunda bypass, L fem-peroneal bypass, angiogram Subjective/Hospital Course pain controlled betty po pain in foot with pressure on it. c/o dysphagia and R shoulder pain Objective Vitals/I&O Date Time Temp Pulse Resp B/P Pulse Ox O2 Delivery O2 Flow Rate FiO2 09/18/16 09:35 74 09/18/16 08:50 82 09/18/16 07:36 71 09/18/16 07:00 98.4 79 18 153/71 99 09/18/16 07:00 96 Room Air 09/18/16 06:15 80 09/18/16 05:05 71 09/18/16 04:32 76 09/18/16 03:25 99.1 83 20 147/70 95 09/18/16 03:25 72 09/18/16 03:25 95 Nasal Cannula 1.00 09/18/16 02:45 69 09/18/16 01:23 69 09/18/16 00:19 72 09/17/16 23:36 78 09/17/16 23:36 97 Nasal Cannula 1.00 09/17/16 23:36 97 Nasal Cannula 1.00 09/17/16 23:36 99.7 97 23 147/67 96 09/17/16 22:00 80 09/17/16 21:00 94 09/17/16 20:00 98.4 100 22 141/63 100 09/17/16 20:00 100 Nasal Cannula 2.00 09/17/16 20:00 96 09/17/16 19:00 103 09/17/16 18:12 100 09/17/16 17:15 95 09/17/16 16:02 83 09/17/16 15:34 18 09/17/16 15:28 98.6 88 18 114/63 98 09/17/16 15:28 98 Nasal Cannula 2.00 09/17/16 15:28 87 09/17/16 14:06 100 09/17/16 13:02 97 09/17/16 12:04 89 09/17/16 11:18 98.0 94 18 130/77 98 09/17/16 11:18 85 09/17/16 11:18 98 Nasal Cannula 4.00 09/18/16 09/18/16 09/18/16 07:00 15:00 23:00 Intake Total 2044 ml Output Total 1200 ml Balance 844 ml Exam: Looks well, sitting in chair L groin VAC removed - skin ok and incision looks great Mild expected swelling L lower leg Foot warm Great toe stable dry gangrene without evidence of infection Pulses: Strong Doppler signals L DP Laboratory Laboratory Tests Test 09/17/16 09/17/16 09/17/16 09/18/16 13:42 16:27 22:20 05:40 Activated Partial 37.4 48.7 57.5 Thromboplast Time White Blood Count 15.4 Red Blood Count 2.98 Hemoglobin 8.8 Hematocrit 25.5 Mean Corpuscular Volume 85.8 Mean Corpuscular Hemoglobin 29.4 Mean Corpuscular Hemoglobin 34.3 Concent Red Cell Distribution Width 13.2 Platelet Count 308 Mean Platelet Volume 8.8 Assessment and Plan Plan 1. Needs aggressive PT with leg straightening and ambulation 2. continue hep gtt and coumadin - goal INR 2.0 3. d/c planning 4. Defer to primary svc for R shoulder pain and dysphagia Discharge Planning 5-7 days Nick Yusuf MD Sep 18, 2016 09:56
--- NOTE | 2016-09-18 13:57 | HHI.PR ---
Subjective Subjective Remarks S/P . 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 , no other deficit Review of Systems Constitutional Constitutional Remarks 12 point ROS completed, negative except as noted above Vitals/Results Intake & Output 09/17/16 09/17/16 09/18/16 15:00 23:00 07:00 Intake Total 861 ml 2044 ml Output Total 350 ml 1200 ml Balance 511 ml 844 ml Intake Oral 360 ml 720 ml IV Total 501 ml 1324 ml Output Urine Total 350 ml 1200 ml # Bowel Movements 0 Vital Signs Vital Signs Date Time Temp Pulse Resp B/P Pulse Ox O2 Delivery O2 Flow Rate FiO2 09/18/16 12:23 71 09/18/16 11:00 97 Room Air 09/18/16 11:00 67 09/18/16 11:00 98.2 72 18 149/64 96 09/18/16 10:22 72 09/18/16 09:35 74 09/18/16 08:50 82 09/18/16 07:36 71 09/18/16 07:00 98.4 79 18 153/71 99 09/18/16 07:00 96 Room Air 09/18/16 06:15 80 09/18/16 05:05 71 09/18/16 04:32 76 09/18/16 03:25 99.1 83 20 147/70 95 09/18/16 03:25 72 09/18/16 03:25 95 Nasal Cannula 1.00 09/18/16 02:45 69 09/18/16 01:23 69 09/18/16 00:19 72 09/17/16 23:36 78 09/17/16 23:36 97 Nasal Cannula 1.00 09/17/16 23:36 97 Nasal Cannula 1.00 09/17/16 23:36 99.7 97 23 147/67 96 09/17/16 22:00 80 09/17/16 21:00 94 09/17/16 20:00 98.4 100 22 141/63 100 09/17/16 20:00 100 Nasal Cannula 2.00 09/17/16 20:00 96 09/17/16 19:00 103 09/17/16 18:12 100 09/17/16 17:15 95 09/17/16 16:02 83 09/17/16 15:34 18 09/17/16 15:28 98.6 88 18 114/63 98 09/17/16 15:28 98 Nasal Cannula 2.00 09/17/16 15:28 87 09/17/16 14:06 100 CBC/BMP: 09/18/16 0540 09/16/16 0445 Lab Results Laboratory Tests Test 09/17/16 09/17/16 09/18/16 16:27 22:20 05:40 Activated Partial 37.4 SEC 48.7 SEC 57.5 SEC Thromboplast Time White Blood Count 15.4 TH/MM3 Red Blood Count 2.98 MIL/MM3 Hemoglobin 8.8 GM/DL Hematocrit 25.5 % Mean Corpuscular Volume 85.8 FL Mean Corpuscular Hemoglobin 29.4 PG Mean Corpuscular Hemoglobin 34.3 % Concent Red Cell Distribution Width 13.2 % Platelet Count 308 TH/MM3 Mean Platelet Volume 8.8 FL Physical Exam General General Appearance: Well Developed, Well Nourished, No Acute Distress, Comfortable Eyes Eye Exam: Pupils Equal, Pupils Reactive Ears & Nose Ears & Nose Exam: Nasal Mucosa [place] Throat Throat Exam: Oral Mucosa [place] & Moist Neck Neck Exam: Neck Supple, Trachea Midline Pulmonary Resp Exam: Clear Bilaterally, No Distress Cardiology CV Exam: Regular, Good Perfusion Gastrointestinal/Abdomen GI Exam: Soft, Non-Tender, Bowel Sounds Present, Non-Distended Musculoskeletal MS Exam: Joints Intact Integumentary Skin Exam: Warm Extremeties Extremeties Remarks toes slightly warmer, left groin with Provena dressing intact. incision to left calk, intact. Left Doppler pulse, intermittent Left great toe necrotic, Toes and up to mid foot with discoloration faint pulse right foot Neurologic Neuro Exam: Alert, Awake, Oriented, Speech Clear, Moving All Extremities, No Focal Deficits Psychiatric Psych Exam: Appropriate Responses VTE Prophylaxis VTE Prophylaxis Meds: Lovenox Assessment/Plan Assessment/Plan Peripheral artery disease, gangrene of the great toe of the left foot, leukocytosis mild, hyponatremia mild, hyperglycemia with diet-controlled diabetes type 2, anemia mild, mildly elevated platelet count hypertension. Acute kidney injury S/P S/P . L iliofemoral bypass/ L LE angiogram/L fem-peroneal bypass with cryo vein 09/15 Right proximal arm weakness Plan: Gangrenous great toe with left foot appreciate vascular surgery consult. S/P S/P . L iliofemoral bypass/ L LE angiogram/L fem-peroneal bypass with cryo vein 09/15 post op care, pt. now in CVICU CCM consulted pain management vascular checks EBL 200, HH dropped to 9.9/29.8 from 11.4/33.5, T & C done HH stable for now continue ASA Heparin gtt on for graft protection per vascular orders, started on Coumadin follow INR daily. Leukocytosis, trending down, 15.4 monitor CBC, fever. 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 Driver D/W pt This patient was seen by myself and Dr. Driver, this note is written on his behalf. Kaylene Barton Sep 18, 2016 13:57
[2016-09-18] MEDS: WARFARIN SOD 5 MG TAB PO SCH (15:14)
[2016-09-18] MEDS ORDERED: ATROPINE SULFATE 1 MG/10 ML SYRINGE ONE (16:43)
[2016-09-18] MEDS ORDERED: EPINEPHrine HCL (1:10,000) 1 MG/10 ML SYRINGE ONE (16:43)
--- NOTE | 2016-09-18 17:38 | RADRPT ---
EXAM DATE/TIME: 09/18/2016 16:56 [facility] COMPARISON: CT BRAIN W/O CONTRAST, May 14, 2011, 18:36. INDICATIONS : Evaluate for stroke,right arm weakness trouble swallowing. RADIATION DOSE: 27.08 CTDIvol (mGy) MEDICAL HISTORY : Peripheral vascular disease. Cardiovascular disease Hypertension.Diabetes SURGICAL HISTORY : Femoral peroneal bypass ENCOUNTER: Initial ACUITY: 2 days PAIN SCALE: 0/10 LOCATION: cranial TECHNIQUE: Multiple contiguous axial images were obtained of the head. Using automated exposure control and adj ustment of the mA and/or kV according to patient size, radiation dose was kept as low as reasonably a chievable to obtain optimal diagnostic quality images. FINDINGS: CEREBRUM: The ventricles are normal for age. No evidence of midline shift, mass lesion, hemorrhage or acute in farction. No extra-axial fluid collections are seen. POSTERIOR FOSSA: The cerebellum and brainstem are intact. The 4th ventricle is midline. The cerebellopontine angle i s unremarkable. EXTRACRANIAL: The visualized portion of the orbits is intact. SKULL: The calvaria is intact. No evidence of skull fracture. There is opacification of the mastoid air shiv ls bilaterally this is unchanged from previous exam. CONCLUSION: 1. No acute intracranial abnormality. Stable compared to previous examination. Barry Membreno MD on September 18, 2016 at 17:32 Board Certified Radiologist. This report was verified electronically.
--- NOTE | 2016-09-18 17:41 | RADRPT ---
EXAM DATE/TIME: 09/18/2016 17:09 [facility] COMPARISON: CHEST SINGLE AP, September 13, 2016, 16:51. INDICATIONS : Right shoulder pain. MEDICAL HISTORY : None. SURGICAL HISTORY : None. ENCOUNTER: Subsequent ACUITY: 1 day PAIN SCORE: 3/10 LOCATION: Right shoulder. FINDINGS: The humeral head is well situated within the glenoid fossa. There moderate degenerative changes. No a cute fracture is seen. CONCLUSION: Degenerative changes. No acute fracture. Barry Membreno MD on September 18, 2016 at 17:36 Board Certified Radiologist. This report was verified electronically.
--- NOTE | 2016-09-18 18:03 | PD.CONS ---
HPI History of Present Illness This is a 86 year old gentleman who presented to the hospital with left toe gangrene, sent by Dr Yusuf. He is s/p fem peroneal bypass, ileofemoral bypass. Yesterday he had onset dysphagia, with regurgitation of rice. He has bolus sensation and difficulty swallowing solid foods. He had swallow eval with recommendation to eat pureed foods and suspected esophageal issue, no aspiration. He denies choking. No trouble with water. prior to this he has not had trouble swallowing, his daughter confirms this saying they have lunch dates on a regular basis and he has never choked vomited. He denies n/v other than 1 episode of regurgitating rice. No abdominal pain. Admits some constipation adn was just given MOM. (Yuly Strickland) PFSH Past Medical History HTN DM PAD Past Surgical History s/p ileofemoral , femoral peroneal bypass carotid endarterectomy (Yuly Strickland) Coded Allergies: No Known Allergies (Verified , 09/12/16) Family History CVD Social History no ETOH, tobacco, illicit drug use (Yuly Strickland) Review of Systems Constitutional: DENIES: Fever Eyes: DENIES: Blurred vision Ears, nose, mouth, throat: COMPLAINS OF: Hearing loss Respiratory: DENIES: Cough Cardiovascular: DENIES: Chest pain Gastrointestinal: COMPLAINS OF: Constipation, Difficulty Swallowing, DENIES: Abdominal pain, Black stools, Bloody stools, Diarrhea, Nausea, Vomiting, Odynophagia, Hematemesis Genitourinary: DENIES: Hematuria Musculoskeletal: DENIES: Muscle aches Integumentary: DENIES: Rash Neurologic: DENIES: Headache Psychiatric: DENIES: Confusion (Yuly Strickland) GI Exam Vitals I&O Vital Signs Date Time Temp Pulse Resp B/P Pulse Ox O2 Delivery O2 Flow Rate FiO2 09/18/16 16:01 80 09/18/16 15:52 83 09/18/16 15:15 98.5 82 18 155/76 98 09/18/16 15:03 96 Room Air 09/18/16 14:00 74 09/18/16 13:00 72 09/18/16 12:23 71 09/18/16 11:00 97 Room Air 09/18/16 11:00 67 6/15/17 11:00 98.2 72 18 149/64 96 09/18/16 10:22 72 09/18/16 09:35 74 09/18/16 08:50 82 09/18/16 07:36 71 09/18/16 07:00 98.4 79 18 153/71 99 09/18/16 07:00 96 Room Air 09/18/16 06:15 80 09/18/16 05:05 71 09/18/16 04:32 76 09/18/16 03:25 99.1 83 20 147/70 95 09/18/16 03:25 72 09/18/16 03:25 95 Nasal Cannula 1.00 09/18/16 02:45 69 09/18/16 01:23 69 09/18/16 00:19 72 09/17/16 23:36 78 09/17/16 23:36 97 Nasal Cannula 1.00 09/17/16 23:36 97 Nasal Cannula 1.00 09/17/16 23:36 99.7 97 23 147/67 96 09/17/16 22:00 80 09/17/16 21:00 94 09/17/16 20:00 98.4 100 22 141/63 100 09/17/16 20:00 100 Nasal Cannula 2.00 09/17/16 20:00 96 09/17/16 19:00 103 09/17/16 18:12 100 I/O 09/17/16 09/17/16 09/17/16 09/18/16 09/18/16 09/18/16 07:00 15:00 23:00 07:00 15:00 23:00 Intake Total 1371 ml 861 ml 2044 ml Output Total 1735 ml 350 ml 1200 ml Balance -364 ml 511 ml 844 ml Intake Oral 480 ml 360 ml 720 ml IV Total 891 ml 501 ml 1324 ml Output Urine Total 1735 ml 350 ml 1200 ml # Bowel Movements 0 0 Imaging Last Impressions Head CT 09/18/16 0000 Signed Impressions: Service Date/Time: September 16:56 - CONCLUSION: 1. No acute intracranial abnormality. Stable compared to previous examination. Barry Membreno MD Chest X-Ray 09/13/16 0000 Signed Impressions: Service Date/Time: Tuesday, September 13, 2016 16:51 - CONCLUSION: 1. No acute findings. Mildly tortuous aorta. Hamlet Soliz MD Laboratory Test 09/17/16 09/18/16 22:20 05:40 Activated Partial 48.7 SEC 57.5 SEC Thromboplast Time White Blood Count 15.4 TH/MM3 Red Blood Count 2.98 MIL/MM3 Hemoglobin 8.8 GM/DL Hematocrit 25.5 % Mean Corpuscular Volume 85.8 FL Mean Corpuscular Hemoglobin 29.4 PG Mean Corpuscular Hemoglobin 34.3 % Concent Red Cell Distribution Width 13.2 % Platelet Count 308 TH/MM3 Mean Platelet Volume 8.8 FL Physical Examination HEENT: EOMI normocephalic; atraumatic; no jaundice. CHEST: CTA CARDIAC: RRR ABDOMEN: Soft, nondistended, nontender; no hepatosplenomegaly; bowel sounds are present in all four quadrants. EXTREMITIES: No clubbing, cyanosis, or edema. SKIN: Normal; no rash; no jaundice. 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 (Yuly Strickland) Assessment and Plan Plan ASSESSMENT - dysphagia - onset 1 d ago. worse with solid food, no difficulty with drinking. swallow eval with recommended pureed diet. Barium swallow pending for tomorrow. No hx GERD. never had EGD. could consider EGD but pt on coumadin and being treated for ischemic toe and arterial insufficiency PLAN - await barium swallow - pureed diet - further recommendations to follow This pt seen by myself and DR Crawley and this note is written on his behalf. ( Yuly Strickland) Physician Comments Seen and examined with NILE, just got back from radiology. Would recommend barium swallow study. Egd on hold due to anticoagulation. On pepcid, continue for now. Will follow, thank you (Kaur Crawley MD) Yuly Strickland Sep 18, 2016 18:03 Kaur Crawley MD Sep 18, 2016 18:53
[2016-09-18] MEDS: FAMOTIDINE 20 MG TAB PO SCH (21:00)
[2016-09-19] VITALS (26 sets, daily range): BP systolic 120–172; BP diastolic 62–81; PULSE 71–93; RESP 18–20; TEMP 97.9–99.1; O2SAT 98–100
[2016-09-19] MEDS: HEPARIN-D5W INJ 250 ML IV SCH (06:35)
--- NOTE | 2016-09-19 07:00 | PD.VS.PN ---
Subjective POD #: 4 Procedure(s): L ilioprofunda bypass, L fem-peroneal bypass, angiogram Subjective/Hospital Course pain controlled Able to place weight on L foot yesterday Otherwise doing well Objective Vitals/I&O Date Time Temp Pulse Resp B/P Pulse Ox O2 Delivery O2 Flow Rate FiO2 09/19/16 06:00 93 09/19/16 05:19 82 09/19/16 04:05 92 09/19/16 04:00 98.2 80 20 155/70 98 09/19/16 03:37 98 Room Air 09/19/16 03:00 74 09/19/16 02:00 77 09/19/16 01:00 77 09/19/16 00:00 98 Room Air 09/19/16 00:00 75 09/19/16 00:00 98.6 71 20 161/81 98 09/18/16 23:00 69 09/18/16 22:00 74 09/18/16 21:00 80 09/18/16 20:00 98.6 95 20 136/62 98 09/18/16 20:00 98 Room Air 09/18/16 20:00 95 09/18/16 19:00 95 09/18/16 18:22 85 09/18/16 17:00 88 09/18/16 16:01 80 09/18/16 15:52 83 09/18/16 15:15 98.5 82 18 155/76 98 09/18/16 15:03 96 Room Air 09/18/16 14:00 74 09/18/16 13:00 72 09/18/16 12:23 71 09/18/16 11:00 97 Room Air 09/18/16 11:00 67 09/18/16 11:00 98.2 72 18 149/64 96 09/18/16 10:22 72 09/18/16 09:35 74 09/18/16 08:50 82 09/18/16 07:36 71 09/18/16 07:00 98.4 79 18 153/71 99 09/18/16 07:00 96 Room Air 09/19/16 09/19/16 09/19/16 07:00 15:00 23:00 Intake Total 1128 ml Output Total 600 ml Balance 528 ml Exam: L groin incision c/d/i - VAC removed yesterday L lower leg incision c/d/i foot looks good - stable dry gangrene L great toe + DP signal Assessment and Plan Plan 1. Needs aggressive PT with ambulation 2. change hep gtt to therapeutic lovenox; continue coumadin - goal INR 2.0 3. d/c planning Discharge Planning early next week Nick Yusuf MD Sep 19, 2016 07:00
[2016-09-19 07:29] LABS: APTT (PATIENT) 49.1 SEC (24.3-30.1); INTERNATIONAL NORMALIZED RATIO 1.1 RATIO; PROTHROMBIN TIME - PATIENT 12.3 SEC (9.8-11.6)
[2016-09-19] MEDS: LISINOPRIL 20 MG TAB PO SCH (08:34)
[2016-09-19] MEDS: METOPROLOL TARTRATE 25 MG TAB PO SCH ×2 (08:34→20:19)
[2016-09-19] MEDS: ENOXAPARIN SODIUM 80 MG/0.8 ML SYRINGE SQ SCH ×2 (08:35→20:18)
[2016-09-19] MEDS: ASPIRIN 325 MG TAB PO SCH (08:35)
[2016-09-19] MEDS: amLODIPine BESYLATE 5 MG TAB PO SCH (08:35)
[2016-09-19] MEDS: PANTOPRAZOLE SOD 40 MG DELAYED RELEASE TAB PO SCH (08:35)
[2016-09-19] MEDS: DOCUSATE SODIUM 50 MG/SENNA 8.6 MG TAB PO SCH ×2 (08:35→20:19)
[2016-09-19] MEDS: SODIUM CHLORIDE 0.9% FLUSH 10 ML FLUSH IV FLUSH SCH ×2 (08:36→20:19)
--- NOTE | 2016-09-19 11:17 | RADRPT ---
EXAM DATE/TIME: 09/19/2016 10:44 [facility] COMPARISON: No previous studies available for comparison. INDICATIONS : Dysphagia for solids FLUORO TIME: 2.5 minutes IMAGE COUNT: 10 CONTRAST: 1. Liquid E-Z Paque Barium Sulfate (60% w/v, 41% w.w) MEDICAL HISTORY : Peripheral vascular disease. Cardiovascular disease. Hypertension. Diabetes SURGICAL HISTORY : Femoral peroneal bypass ENCOUNTER: Initial ACUITY: 2 days PAIN SCORE: 0/10 LOCATION: Bilateral neck FINDINGS: A single contrast barium swallow was performed. The examination is somewhat limited due to severe ky phosis. Mild esophageal dysmotility is noted indicated by multiple tertiary contractions. A barium tablet remains in the distal esophagus suggesting mild smooth stricture of the distal esophagus. No gastroesophageal reflux is noted. If there is clinical concern for swallowing abnormality modified b arium swallow may be helpful for further evaluation of this patient with severe kyphosis. There is n o significant hiatal hernia noted. CONCLUSION: 1. Barium tablet remains in the distal esophagus likely related to smooth distal esophageal strictur e. 2. Mild esophageal dysmotility indicated by tertiary contractions. 3. No evidence of gastroesophageal reflux or hiatal hernia. 4. If there is clinical concern for swallowing abnormality modified barium swallow with speech patho logy would be more sensitive in this patient with severe kyphosis. Nick Bowie MD on September 19, 2016 at 11:06 Board Certified Radiologist. This report was verified electronically.
--- NOTE | 2016-09-19 11:20 | HHI.GIFU ---
Subjective Remarks Pt sitting in chair, visiting with family. ATe breakfast today with no issues swallowing or regurgitating, is on pureed diet. (Yuly Strickland) Objective Vitals I&O Vital Signs Date Time Temp Pulse Resp B/P Pulse Ox O2 Delivery O2 Flow Rate FiO2 09/19/16 10:00 85 09/19/16 09:00 82 09/19/16 08:00 76 09/19/16 07:00 99.1 84 20 120/62 98 09/19/16 07:00 98 Room Air 09/19/16 07:00 80 09/19/16 06:00 93 09/19/16 05:19 82 09/19/16 04:05 92 09/19/16 04:00 98.2 80 20 155/70 98 09/19/16 03:37 98 Room Air 09/19/16 03:00 74 09/19/16 02:00 77 09/19/16 01:00 77 09/19/16 00:00 98 Room Air 09/19/16 00:00 75 09/19/16 00:00 98.6 71 20 161/81 98 09/18/16 23:00 69 09/18/16 22:00 74 09/18/16 21:00 80 09/18/16 20:00 98.6 95 20 136/62 98 09/18/16 20:00 98 Room Air 09/18/16 20:00 95 09/18/16 19:00 95 09/18/16 18:22 85 09/18/16 17:00 88 09/18/16 16:01 80 09/18/16 15:52 83 09/18/16 15:15 98.5 82 18 155/76 98 09/18/16 15:03 96 Room Air 09/18/16 14:00 74 09/18/16 13:00 72 09/18/16 12:23 71 I/O 09/18/16 09/18/16 09/18/16 09/19/16 09/19/16 09/19/16 07:00 15:00 23:00 07:00 15:00 23:00 Intake Total 2044 ml 2100 ml 1128 ml Output Total 1200 ml 2000 ml 600 ml Balance 844 ml 100 ml 528 ml Intake Oral 720 ml 1000 ml 240 ml IV Total 1324 ml 1100 ml 888 ml Output Urine Total 1200 ml 2000 ml 600 ml # Bowel Movements 1 Laboratory Laboratory Tests Test 09/19/16 06:16 Prothrombin Time 12.3 Prothromb Time International 1.1 Ratio Activated Partial 49.1 Thromboplast Time Imaging Last Impressions Shoulder X-Ray 09/18/16 0000 Signed Impressions: Service Date/Time: , September 18, 2016 17:09 - CONCLUSION: Degenerative changes. No acute fracture. Barry Membreno MD Head CT 09/18/16 0000 Signed Impressions: Service Date/Time: , September 18, 2016 16:56 - CONCLUSION: 1. No acute intracranial abnormality. Stable compared to previous examination. Barry Membreno MD Chest X-Ray 09/13/16 0000 Signed Impressions: Service Date/Time: Tuesday, September 13, 2016 16:51 - CONCLUSION: 1. No acute findings. Mildly tortuous aorta. Hamlet Soliz MD Physical Exam HEENT: PERRL; normocephalic; atraumatic; no jaundice. CHEST: CTA CARDIAC: RRR ABDOMEN: Soft, nondistended, nontender; no hepatosplenomegaly; bowel sounds are present in all four quadrants. EXTREMITIES: No clubbing, cyanosis, or edema. SKIN: Normal; no rash; no jaundice. 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 (Yuly Strickland) Assessment and Plan Plan ASSESSMENT - dysphagia - onset 2 d ago. worse with solid food, no difficulty with drinking. swallow eval with recommended pureed diet. Barium swallow pending. never had EGD. could consider EGD but pt on coumadin and being treated for ischemic toe and arterial insufficiency PLAN - await barium swallow results - contineue pureed diet - continue pepcid - further recommendations to follow This pt seen by myself and DR Crawley and this note is written on his behalf. ( Yuly Strickland) Physician Comments Seen and examined with NILE, better today. awaiting barium swallow. Not a candidate for egd/dilation at present due to anticoagulation (Kaur Crawley MD ) Yuly Strickland Sep 19, 2016 11:20 Kaur Crawley MD Sep 19, 2016 12:17
--- NOTE | 2016-09-19 12:21 | HHI.PR ---
Subjective Subjective Remarks S/P . L iliofemoral bypass/ L LE angiogram/L fem-peroneal bypass with cryo vein awake, oriented x 3 able to stand today able to swallow pills but took him a long time can lift right arm a little better today Review of Systems Constitutional Constitutional Remarks 12 point ROS completed, negative except as noted above Vitals/Results Intake & Output 09/18/16 09/18/16 09/19/16 15:00 23:00 07:00 Intake Total 2100 ml 1128 ml Output Total 2000 ml 600 ml Balance 100 ml 528 ml Intake Oral 1000 ml 240 ml IV Total 1100 ml 888 ml Output Urine Total 2000 ml 600 ml # Bowel Movements 1 Vital Signs Vital Signs Date Time Temp Pulse Resp B/P Pulse Ox O2 Delivery O2 Flow Rate FiO2 09/19/16 11:51 96 Room Air 09/19/16 11:00 82 09/19/16 11:00 99.1 84 20 120/62 98 09/19/16 10:00 85 09/19/16 09:00 82 09/19/16 08:00 76 09/19/16 07:00 99.1 84 20 120/62 98 09/19/16 07:00 98 Room Air 09/19/16 07:00 80 09/19/16 06:00 93 09/19/16 05:19 82 09/19/16 04:05 92 09/19/16 04:00 98.2 80 20 155/70 98 09/19/16 03:37 98 Room Air 09/19/16 03:00 74 09/19/16 02:00 77 09/19/16 01:00 77 09/19/16 00:00 98 Room Air 09/19/16 00:00 75 09/19/16 00:00 98.6 71 20 161/81 98 09/18/16 23:00 69 09/18/16 22:00 74 09/18/16 21:00 80 09/18/16 20:00 98.6 95 20 136/62 98 09/18/16 20:00 98 Room Air 09/18/16 20:00 95 09/18/16 19:00 95 09/18/16 18:22 85 09/18/16 17:00 88 09/18/16 16:01 80 09/18/16 15:52 83 09/18/16 15:15 98.5 82 18 155/76 98 09/18/16 15:03 96 Room Air 09/18/16 14:00 74 09/18/16 13:00 72 09/18/16 12:23 71 CBC/BMP: 09/18/16 0540 09/16/16 0445 Lab Results Laboratory Tests Test 09/19/16 06:16 Prothrombin Time 12.3 SEC Prothromb Time International 1.1 RATIO Ratio Activated Partial 49.1 SEC Thromboplast Time Physical Exam General General Appearance: Well Developed, Well Nourished, No Acute Distress, Comfortable Eyes Eye Exam: Pupils Equal, Pupils Reactive Ears & Nose Ears & Nose Exam: Nasal Mucosa [place] Throat Throat Exam: Oral Mucosa [place] & Moist Neck Neck Exam: Neck Supple, Trachea Midline Pulmonary Resp Exam: Clear Bilaterally, No Distress Cardiology CV Exam: Regular, Good Perfusion Gastrointestinal/Abdomen GI Exam: Soft, Non-Tender, Bowel Sounds Present, Non-Distended Musculoskeletal MS Exam: Joints Intact Integumentary Skin Exam: Warm Extremeties Extremeties Remarks toes slightly warmer, left groin with Provena dressing intact. incision to left calk, intact. Left Doppler pulse, intermittent Left great toe necrotic, Toes and up to mid foot with discoloration faint pulse right foot Neurologic Neuro Exam: Alert, Awake, Oriented, Speech Clear Neuro Remarks right arm proximal weakness Psychiatric Psych Exam: Appropriate Responses VTE Prophylaxis VTE Prophylaxis Meds: Lovenox Assessment/Plan Assessment/Plan Peripheral artery disease, gangrene of the great toe of the left foot, leukocytosis mild, hyponatremia mild, hyperglycemia with diet-controlled diabetes type 2, anemia mild, mildly elevated platelet count hypertension. Acute kidney injury S/P S/P . L iliofemoral bypass/ L LE angiogram/L fem-peroneal bypass with cryo vein 09/15 Right proximal arm weakness Plan: Gangrenous great toe with left foot appreciate vascular surgery consult. S/P S/P . L iliofemoral bypass/ L LE angiogram/L fem-peroneal bypass with cryo vein 09/15 pain management vascular checks HH stable continue ASA on Lovenox and Coumadin now, off Heparin INR 1.1 Leukocytosis, trending down, 15.4 monitor CBC, fever. 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 -Right shoulder xray-no acute findings. -? brachial plexus nerve injury -may need MRI, will d/w attending. -OT eval Reported dysphagia -appreciate GI input -Swallow eval results, barium swallow done, results noted-distal esophageal stricture, will need EGD and dilatation. Notified GI, they plan for EGD with dilatation on Thursday, requests to stop anticoagulation D/W Dr. Yusuf, ok to stop Coumadin, continue Lovenox. Will hold nighttime Lovenox Thursday 09/21 Continue with PT DC planning in progress, to SNF next week, D/W RN D/W Dr. Driver D/W pt This patient was seen by myself and Dr. Driver, this note is written on his behalf. Kaylene Barton Sep 19, 2016 12:21
[2016-09-19] MEDS: FAMOTIDINE 20 MG TAB PO SCH (20:19)
[2016-09-20] VITALS (24 sets, daily range): BP systolic 133–192; BP diastolic 58–82; PULSE 61–84; RESP 16–22; TEMP 98–98.7; O2SAT 96–100
[2016-09-20 07:38] LABS: APTT (PATIENT) 39.4 SEC (24.3-30.1)
[2016-09-20] MEDS: ASPIRIN 325 MG TAB PO SCH (08:43)
[2016-09-20] MEDS: PANTOPRAZOLE SOD 40 MG DELAYED RELEASE TAB PO SCH (08:43)
[2016-09-20] MEDS: METOPROLOL TARTRATE 25 MG TAB PO SCH ×2 (08:43→21:25)
[2016-09-20] MEDS: LISINOPRIL 20 MG TAB PO SCH (08:43)
[2016-09-20] MEDS: amLODIPine BESYLATE 5 MG TAB PO SCH (08:43)
[2016-09-20] MEDS: DOCUSATE SODIUM 50 MG/SENNA 8.6 MG TAB PO SCH ×2 (08:44→21:00)
[2016-09-20] MEDS: SODIUM CHLORIDE 0.9% FLUSH 10 ML FLUSH IV FLUSH SCH ×2 (08:44→21:37)
[2016-09-20] MEDS: ENOXAPARIN SODIUM 80 MG/0.8 ML SYRINGE SQ SCH ×2 (08:44→21:37)
--- NOTE | 2016-09-20 08:49 | PD.VS.PN ---
Subjective Subjective/Hospital Course working on putting weight on left foot. No complaints. Objective Vitals/I&O Date Time Temp Pulse Resp B/P Pulse Ox O2 Delivery O2 Flow Rate FiO2 09/20/16 06:00 63 09/20/16 05:00 64 09/20/16 04:01 65 09/20/16 04:01 98.0 65 16 167/71 98 09/20/16 03:27 98 Room Air 09/20/16 03:00 72 09/20/16 02:03 68 09/20/16 01:00 71 09/20/16 00:00 98 Room Air 09/20/16 00:00 98.2 63 20 152/72 98 09/20/16 00:00 71 09/19/16 23:00 79 09/19/16 22:00 79 09/19/16 21:00 79 09/19/16 20:00 99 Room Air 09/19/16 20:00 78 09/19/16 20:00 98.2 87 20 172/73 99 09/19/16 19:00 87 09/19/16 18:12 71 09/19/16 17:40 75 09/19/16 16:40 73 09/19/16 15:43 86 09/19/16 15:22 97.9 86 18 149/78 100 09/19/16 15:21 99 Room Air 09/19/16 14:00 82 09/19/16 13:00 79 09/19/16 12:00 85 09/19/16 11:51 96 Room Air 09/19/16 11:00 82 09/19/16 11:00 99.1 84 20 120/62 98 09/19/16 10:00 85 09/19/16 09:00 82 09/20/16 09/20/16 09/20/16 07:00 15:00 23:00 Intake Total 240 ml Output Total 1750 ml Balance -1510 ml Physical Exam left foot warm. Left groin incision and below knee incisions intact. Laboratory Laboratory Tests Test 09/20/16 05:02 Activated Partial 39.4 Thromboplast Time Imaging Last 48 hours Impressions Barium Swallow X-Ray 09/19/16 0000 Signed Impressions: Service Date/Time: Monday, September 19, 2016 10:44 - CONCLUSION: 1. Barium tablet remains in the distal esophagus likely related to smooth distal esophageal stricture. 2. Mild esophageal dysmotility indicated by tertiary contractions. 3. No evidence of gastroesophageal reflux or hiatal hernia. 4. If there is clinical concern for swallowing abnormality modified barium swallow with speech pathology would be more sensitive in this patient with severe kyphosis. Nick Bowie MD Assessment and Plan Plan Continue physical therapy. Progression of anticoagulation. Discharge Planning early next week Sanju Rivera DO Sep 20, 2016 08:49
--- NOTE | 2016-09-20 08:50 | HHI.PR ---
Subjective Subjective Remarks S/P . L iliofemoral bypass/ L LE angiogram/L fem-peroneal bypass with cryo vein awake, oriented x 3,poor historian today, no problems with swallowing, able to take pills and eat okay states he had trouble with barium swallow pill only still with difficulty moving right arm Review of Systems Constitutional Constitutional Remarks 12 point ROS completed, negative except as noted above Vitals/Results Intake & Output 09/19/16 09/19/16 09/20/16 15:00 23:00 07:00 Intake Total 650 ml 240 ml Output Total 1000 ml 1750 ml Balance -350 ml -1510 ml Intake Oral 450 ml 240 ml IV Total 200 ml Output Urine Total 1000 ml 1750 ml # Bowel Movements 1 Vital Signs Vital Signs Date Time Temp Pulse Resp B/P Pulse Ox O2 Delivery O2 Flow Rate FiO2 09/20/16 06:00 63 09/20/16 05:00 64 09/20/16 04:01 65 09/20/16 04:01 98.0 65 16 167/71 98 09/20/16 03:27 98 Room Air 09/20/16 03:00 72 09/20/16 02:03 68 09/20/16 01:00 71 09/20/16 00:00 98 Room Air 09/20/16 00:00 98.2 63 20 152/72 98 09/20/16 00:00 71 09/19/16 23:00 79 09/19/16 22:00 79 09/19/16 21:00 79 09/19/16 20:00 99 Room Air 09/19/16 20:00 78 09/19/16 20:00 98.2 87 20 172/73 99 09/19/16 19:00 87 09/19/16 18:12 71 09/19/16 17:40 75 09/19/16 16:40 73 09/19/16 15:43 86 09/19/16 15:22 97.9 86 18 149/78 100 09/19/16 15:21 99 Room Air 09/19/16 14:00 82 09/19/16 13:00 79 09/19/16 12:00 85 09/19/16 11:51 96 Room Air 09/19/16 11:00 82 09/19/16 11:00 99.1 84 20 120/62 98 09/19/16 10:00 85 09/19/16 09:00 82 CBC/BMP: 09/18/16 0540 09/16/16 0445 Lab Results Laboratory Tests Test 09/20/16 05:02 Activated Partial 39.4 SEC Thromboplast Time Physical Exam General General Appearance: Well Developed, Well Nourished, No Acute Distress, Comfortable Eyes Eye Exam: Pupils Equal, Pupils Reactive Ears & Nose Ears & Nose Exam: Nasal Mucosa [place] Throat Throat Exam: Oral Mucosa [place] & Moist Neck Neck Exam: Neck Supple, Trachea Midline Pulmonary Resp Exam: Clear Bilaterally, No Distress Cardiology CV Exam: Regular, Good Perfusion Gastrointestinal/Abdomen GI Exam: Soft, Non-Tender, Bowel Sounds Present, Non-Distended Musculoskeletal MS Exam: Joints Intact Integumentary Skin Exam: Warm Extremeties Extremeties Remarks toes slightly warmer, left groin with Provena dressing intact. incision to left calk, intact. Left Doppler pulse, intermittent Left great toe necrotic, Toes and up to mid foot with discoloration faint pulse right foot Neurologic Neuro Exam: Alert, Awake, Oriented, Speech Clear Neuro Remarks right arm proximal weakness Psychiatric Psych Exam: Appropriate Responses VTE Prophylaxis VTE Prophylaxis Meds: Lovenox Assessment/Plan Assessment/Plan Peripheral artery disease, gangrene of the great toe of the left foot, leukocytosis mild, hyponatremia mild, hyperglycemia with diet-controlled diabetes type 2, anemia mild, mildly elevated platelet count hypertension. Acute kidney injury S/P S/P . L iliofemoral bypass/ L LE angiogram/L fem-peroneal bypass with cryo vein 09/15 Right proximal arm weakness Plan: Gangrenous great toe with left foot appreciate vascular surgery consult. S/P S/P . L iliofemoral bypass/ L LE angiogram/L fem-peroneal bypass with cryo vein 09/15 pain management vascular checks HH stable continue ASA on Lovenox and Coumadin now, INR 1.1 Leukocytosis, trending down, 15.4 monitor CBC, fever. Diabetes type 2 uncontrolled on admission -Accu-Cheks with sliding scale -ADA diet Hypertension, controlled -continue with with medical management Acute kidney injury, resolved -stable, dc IVF Right arm weakness, has strong criminal justice faculty ? etiology, no injury -CT head negative. -Right shoulder xray-no acute findings. -? brachial plexus nerve injury -may need MRI, will d/w attending. -OT eval Reported dysphagia -appreciate GI input -Swallow eval results, barium swallow done, results noted-distal esophageal stricture -No plans to do EGD with dilatation at this time per GI -resume Coumadin -tolerating diet well, monitor for aspiration Continue with PT DC planning in progress, to SNF next week D/W RN D/W Dr. Driver D/W pt This patient was seen by myself and Dr. Driver, this note is written on his behalf. Kaylene Barton Sep 20, 2016 08:50
[2016-09-20 11:49] LABS: INTERNATIONAL NORMALIZED RATIO 1.2 RATIO; PROTHROMBIN TIME - PATIENT 13.3 SEC (9.8-11.6)
--- NOTE | 2016-09-20 11:56 | HHI.GIFU ---
Subjective Remarks Pt resting in bed, says he ate breakfast just fine. (Yuly Strickland) Objective Vitals I&O Vital Signs Date Time Temp Pulse Resp B/P Pulse Ox O2 Delivery O2 Flow Rate FiO2 09/20/16 11:37 99 Room Air 09/20/16 11:37 98.7 68 18 136/59 99 09/20/16 11:37 66 09/20/16 10:48 69 09/20/16 09:53 68 09/20/16 08:45 96 Room Air 09/20/16 08:45 98.5 72 18 192/82 96 09/20/16 08:45 70 09/20/16 06:00 63 09/20/16 05:00 64 09/20/16 04:01 65 09/20/16 04:01 98.0 65 16 167/71 98 09/20/16 03:27 98 Room Air 09/20/16 03:00 72 09/20/16 02:03 68 09/20/16 01:00 71 09/20/16 00:00 98 Room Air 09/20/16 00:00 98.2 63 20 152/72 98 09/20/16 00:00 71 09/19/16 23:00 79 09/19/16 22:00 79 09/19/16 21:00 79 09/19/16 20:00 99 Room Air 09/19/16 20:00 78 09/19/16 20:00 98.2 87 20 172/73 99 09/19/16 19:00 87 09/19/16 18:12 71 09/19/16 17:40 75 09/19/16 16:40 73 09/19/16 15:43 86 09/19/16 15:22 97.9 86 18 149/78 100 09/19/16 15:21 99 Room Air 09/19/16 14:00 82 09/19/16 13:00 79 09/19/16 12:00 85 I/O 09/19/16 09/19/16 09/19/16 09/20/16 09/20/16 09/20/16 07:00 15:00 23:00 07:00 15:00 23:00 Intake Total 1128 ml 650 ml 240 ml Output Total 600 ml 1000 ml 1750 ml Balance 528 ml -350 ml -1510 ml Intake Oral 240 ml 450 ml 240 ml IV Total 888 ml 200 ml Output Urine Total 600 ml 1000 ml 1750 ml # Bowel Movements 1 1 Laboratory Laboratory Tests Test 09/20/16 05:02 Prothrombin Time 13.3 Prothromb Time International 1.2 Ratio Activated Partial 39.4 Thromboplast Time Physical Exam HEENT: PERRL; normocephalic; atraumatic; no jaundice. CHEST: CTA CARDIAC: RRR ABDOMEN: Soft, nondistended, nontender; no hepatosplenomegaly; bowel sounds are present in all four quadrants. EXTREMITIES: No clubbing, cyanosis, or edema. SKIN: Normal; no rash; no jaundice. PRINT PRODUCTION COORDINATOR: No focal deficits; alert and oriented times three. (Yuly Strickland) Assessment and Plan Plan ASSESSMENT - dysphagia - onset 2 d ago. worse with solid food, no difficulty with drinking. swallow eval with recommended pureed diet. Barium swallow 09-19-16-- > barium tablet remains in distal esophagus, likely r/t smooth distal esophageal stricture, mild esophageal dysmotility indicated by tertiary contractions, no evidence GERD, hiatal hernia. never had EGD. EGD planned for Thursday, coumadin on hold, pt on lovenox which can be held Thursday 09/21. PLAN - EGD w/ poss dilation Thursday - obtain consents - hold coumadin - hold lovenox 09/21 - NPO after midnight 09/21 - continue pureed diet - continue pepcid - further recommendations to follow This pt seen by myself and DR Spence and this note is written on his behalf. ( Yuly Strickland) Physician Comments Patient seen and examined Agree with above Continue with current supportive care Monitor labs Plan for EGD with possible dilation tomorrow (Ever Spence MD) Yuly Strickland Sep 20, 2016 11:56 Ever Spence MD Sep 20, 2016 15:06
--- NOTE | 2016-09-20 15:38 | RADRPT ---
EXAM DATE/TIME: 09/20/2016 14:29 [facility] COMPARISON: No previous studies available for comparison. INDICATIONS : Right upper extremity weakness. MEDICAL HISTORY : Diabetes mellitus type 2. Hypertension. SURGICAL HISTORY : Carotid endarterectomy. Carotid endarterectomy. ENCOUNTER: Initial ACUITY: 1 day PAIN SCORE: 0/10 LOCATION: cranial TECHNIQUE: Multiplanar, multisequence MRI of the brain was performed without contrast. FINDINGS: CEREBRUM: Moderate true volume loss with diffuse periventricular and patchy white matter increased T2 signal co nsistent with ischemic white matter pneumonia seen. The ventricles are normal for degree of atrophy. No evidence of midline shift, mass lesion, hemorrhage or acute infarction. No extraaxial fluid omar ections are seen. The pituitary gland and suprasellar cistern are normal in configuration. WHITE MATTER: No significant signal abnormalities are seen in the white matter. POSTERIOR FOSSA: The cerebellum and brainstem are intact. The 4th ventricle is midline. The cerebellopontine angle is unremarkable. The cerebellar tonsils are normal in position. DIFFUSION IMAGING: No focal areas of restricted diffusion are seen. No evidence of acute infarction. EXTRACRANIAL: The visualized portions of the orbits and paranasal sinuses are unremarkable. CONCLUSION: 1. Senescent changes with changes of periventricular small vessel disease. 2. No acute abnormality. Specifically, no evidence for acute infarction. Abdiel Reed MD on September 20, 2016 at 15:32 Board Certified Radiologist. This report was verified electronically.
[2016-09-20] MEDS: WARFARIN SOD 5 MG TAB PO SCH (16:00)
--- NOTE | 2016-09-20 16:10 | RADRPT ---
EXAM DATE/TIME: 09/20/2016 14:29 [facility] COMPARISON: No previous studies available for comparison. INDICATIONS : Right upper extremity weakness. MEDICAL HISTORY : Diabetes mellitus type 2. Hypertension. SURGICAL HISTORY : Carotid endarterectomy. CABG ENCOUNTER: Initial ACUITY: 1 day PAIN SCORE: 0/10 LOCATION: [facility] TECHNIQUE: Multiplanar, multisequence MRI examination of the cervical spine was performed. FINDINGS: There is approximately 4 mm of degenerative anterolisthesis at C4/C5. A mild kyphotic deformity is se en centered around C5/C6. No fracture or acute appearing malalignment. Vertebral bodies have normal h eight. Mild to moderate osteoarthritis seen anteriorly and laterally at C1/C2. C2-C3: The disc is desiccated. Minimal loss of height. There is a small to moderate posterior disc protrusio n and thickening of the ligamentum flavum. There is mild spinal stenosis without cord compression or cord signal abnormality. No significant foraminal stenosis. C3-C4: The disc is desiccated. Minimal loss of height. Moderate size posterior disc protrusion present and t here is moderate uncovertebral and facet osteoarthritis with thickening of the ligamentum flavum. The re is moderate spinal stenosis with borderline cord compression but no cord signal abnormality. There is moderate to severe bilateral foraminal stenosis. C4-C5: The disc is desiccated and has slight loss of height. Grade 1 degenerative anterolisthesis. There is a small moderate left paracentral disc protrusion and left greater than right uncovertebral and facet osteoarthritis. There is mild to moderate spinal stenosis without cord compression or cord signal ab normality. There is mild right and moderate left foraminal stenosis. C5-C6: The disc is desiccated and has moderate loss of height. There is a small, broad posterior disc osteop hyte complex and severe bilateral uncovertebral and facet osteoarthritis. There is mild spinal stenos is without cord compression or cord signal abnormality. There is severe right and moderate to severe left foraminal stenosis. C6-C7: The disc is desiccated and has moderate loss of height. There is a small, broad/diffuse disc osteophy te complex and right cord left uncovertebral and facet osteoarthritis. There is mild spinal stenosis. There severe right and moderate to severe left foraminal stenosis. C7-T1: The disc is desiccated. Slight loss of height. There is a small to moderate, broad/diffuse posterior disc osteophyte complex and moderate bilateral facet osteoarthritis. There is moderate to severe bila teral foraminal stenosis. CONCLUSION: 1. Multilevel cervical spine degenerative changes as detailed above. 2. High-grade right greater than left foraminal stenosis at C5/C6 and C6/C7 and high-grade bilateral foraminal stenosis at C7/T1. Slightly milder degrees of foraminal stenosis at the other levels. 3. Moderate spinal stenosis with short segment cord compression but no cord signal abnormality at C3/ C4. Otherwise mild or mild to moderate spinal stenosis as above. 4. Grade 1 degenerative anterolisthesis at C4/C5 and mild degenerative appearing kyphosis centered ar ound C5/C6. No fracture or acute appearing malalignment. Ari Gomes MD on September 20, 2016 at 15:58 Board Certified Radiologist. This report was verified electronically.
--- NOTE | 2016-09-20 18:19 | MB ---
cc: JANIS FLOR MD DATE OF CONSULTATION DATE OF 1930 REASON FOR CONSULTATION Right upper extremity weakness. HISTORY OF PRESENT ILLNESS The patient is an 86-year-old man admitted to the hospital ON 09/12 with right great toe pain with gangrene. He is usually very active, using his walker daily. Apparently he saw DrRazia ___ for his vascular insufficiency, was admitted for further evaluation on that. PAST MEDICAL HISTORY 1. Diabetes, 2. Hearing impairment, 3. Hypertension, 4. Peripheral vascular disease, 5. Carotid disease. He has had a carotid endarterectomy. ALLERGIES None reported MEDICATIONS Home medicines are 1. Plavix 2. Lisinopril 3. Lueders 4. Metoprolol. SOCIAL HISTORY No tobacco, alcohol or drugs. Lives on his own with two sons that help him. I am asked to evaluate him for right upper extremity weakness. Very difficult for me to determine when this weakness started. Looking back at chart notes, first mention I have is that it would be yesterday. The patient stated that he could not lift his right arm properly. He denies any pain in the shoulder, denies any neck pain. Denies any numbness or tingling. He is not a very good historian. PHYSICAL EXAMINATION VITAL SIGNS: Temperature is 98.7, pulse 73, respiratory rate 18, blood pressure 136/59. He is awake and alert. Pupils reactive. Face is symmetrical. Tongue midline. Motor - left arm is intact. He has full range of motion. At the right one, he has limited range of motion as if it is a shoulder issue but with palpation of the shoulder he has no pain. He is unable to maintain his arm completely antigravity. He did lift it a bit off of the bed, but when I try to have both arms held out in front of him the right arm falls down. He can flex at the elbow. He can squeeze. 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 He can shrug his shoulders. There is no Annemarie sign. He can feel light touch and pain. Leg hassan, he is a little weaker on the left leg from the surgery but otherwise no lateralizing weakness in the legs. Gait is no assessed. LABORATORY DATA Labs are reviewed. Hemoglobin is 8.8, white count 15.4, platelets 308,000. Coag panel - He is on Lovenox right now. INR is 1.2, PTT 39.4. Chemistries - glucose 143, calcium 7.9, sodium 134. IMAGING STUDIES CT head was unremarkable. Shoulder x-ray degenerative changes. Chest x-ray - No acute findings, tortuous aorta. Barium swallow - He had tablets remaining in the distal esophagus likely due to stricture. Mild dysmotility indicated but tertiary contractions. No reflux. No hiatal hernia. IMPRESSION AND PLAN The patient is an 86-year-old man with decreased mobility in the right upper extremity. I am still concerned that it still may be a shoulder issue. Certainly could be from his cervical spine. I did see some abnormality at the C3-4 level. However, I am waiting for the official report. His brain MRI I did not see any stroke on diffusion weighted imaging, again official report still pending. This still could be a brachial plexus issue but less likely. He is on Lovenox. We will continue with that, restart his warfarin when feasible. He is also on a full-dose aspirin. He has pain medication for his legs to be used as needed. I would obtain a physical therapy evaluation and we will get the official reports of the imaging and make further recommendations accordingly. MD LOLA Condon/ /3:29 PM /5:58 PM
[2016-09-20] MEDS: FAMOTIDINE 20 MG TAB PO SCH (21:36)
[2016-09-21] VITALS (25 sets, daily range): BP systolic 107–155; BP diastolic 57–77; PULSE 59–87; RESP 16–20; TEMP 97.7–98.6; O2SAT 86–99
[2016-09-21 05:36] LABS: MEAN CELL VOLUME 86.7 FL (80.0-100.0); MEAN CORPUSCULAR HEMOGLOBIN 28.2 PG (27.0-34.0); MEAN CORPUSCULAR HGB CONC 32.5 % (32.0-36.0); PLATELET COUNT 344 TH/MM3 (150-450); RED CELL DISTRIBUTION WIDTH 13.1 % (11.6-17.2); REVIEW FLAG FINAL
[2016-09-21 05:38] LABS: INTERNATIONAL NORMALIZED RATIO 1.1 RATIO; PROTHROMBIN TIME - PATIENT 11.9 SEC (9.8-11.6)
[2016-09-21] MEDS: ENOXAPARIN SODIUM 80 MG/0.8 ML SYRINGE SQ SCH ×2 (08:00→20:44)
[2016-09-21] MEDS: LISINOPRIL 20 MG TAB PO SCH (08:06)
[2016-09-21] MEDS: amLODIPine BESYLATE 5 MG TAB PO SCH (08:06)
[2016-09-21] MEDS: ASPIRIN 325 MG TAB PO SCH (08:06)
[2016-09-21] MEDS: METOPROLOL TARTRATE 25 MG TAB PO SCH ×2 (08:06→20:45)
[2016-09-21] MEDS: SODIUM CHLORIDE 0.9% FLUSH 10 ML FLUSH IV FLUSH SCH ×2 (08:07→20:44)
[2016-09-21] MEDS: PANTOPRAZOLE SOD 40 MG DELAYED RELEASE TAB PO SCH (08:07)
[2016-09-21] MEDS: DOCUSATE SODIUM 50 MG/SENNA 8.6 MG TAB PO SCH ×2 (08:07→20:45)
--- NOTE | 2016-09-21 08:38 | HHI.PR ---
Subjective Subjective Remarks S/P . L iliofemoral bypass/ L LE angiogram/L fem-peroneal bypass with cryo vein awake, oriented x 3,poor historian cantankerous today, wants to get out of bed, tired of being in hospital improved movement to right arm swallowed pills ok this morning going for EGD today left leg pain improved Review of Systems Constitutional Constitutional Remarks 12 point ROS completed, negative except as noted above Vitals/Results Intake & Output 09/20/16 09/20/16 09/21/16 15:00 23:00 07:00 Intake Total 720 ml 480 ml Output Total 1320 ml 1325 ml Balance -600 ml -845 ml Intake Oral 720 ml 480 ml IV Total 0 ml Output Urine Total 1320 ml 1325 ml # Bowel Movements 0 Vital Signs Vital Signs Date Time Temp Pulse Resp B/P Pulse Ox O2 Delivery O2 Flow Rate FiO2 09/21/16 06:04 69 09/21/16 05:28 66 09/21/16 04:14 68 09/21/16 03:25 68 09/21/16 03:10 98.3 75 20 142/69 86 09/21/16 03:10 96 Room Air 09/21/16 02:10 64 09/21/16 01:02 64 09/21/16 00:00 60 09/20/16 23:25 99 Room Air 09/20/16 23:25 98.7 61 22 154/67 99 09/20/16 23:00 61 09/20/16 22:00 68 09/20/16 21:00 84 09/20/16 20:05 76 09/20/16 19:30 98.3 80 18 133/58 98 09/20/16 19:30 77 09/20/16 19:30 98 Room Air 09/20/16 18:13 77 09/20/16 18:12 18 09/20/16 17:11 70 09/20/16 16:17 75 09/20/16 15:30 73 09/20/16 15:30 98.7 75 18 141/58 100 09/20/16 15:30 100 Room Air 09/20/16 14:04 73 09/20/16 13:13 67 09/20/16 12:32 71 09/20/16 11:37 99 Room Air 09/20/16 11:37 98.7 68 18 136/59 99 09/20/16 11:37 66 09/20/16 10:48 69 09/20/16 09:53 68 09/20/16 08:45 96 Room Air 09/20/16 08:45 98.5 72 18 192/82 96 09/20/16 08:45 70 CBC/BMP: 09/21/16 0422 Lab Results Laboratory Tests Test 09/21/16 04:22 White Blood Count 12.0 TH/MM3 Red Blood Count 3.00 MIL/MM3 Hemoglobin 8.5 GM/DL Hematocrit 26.0 % Mean Corpuscular Volume 86.7 FL Mean Corpuscular Hemoglobin 28.2 PG Mean Corpuscular Hemoglobin 32.5 % Concent Red Cell Distribution Width 13.1 % Platelet Count 344 TH/MM3 Mean Platelet Volume 9.0 FL Prothrombin Time 11.9 SEC Prothromb Time International 1.1 RATIO Ratio Physical Exam General General Appearance: Well Developed, Well Nourished, No Acute Distress, Comfortable Eyes Eye Exam: Pupils Equal, Pupils Reactive Ears & Nose Ears & Nose Exam: Nasal Mucosa [place] Throat Throat Exam: Oral Mucosa [place] & Moist Neck Neck Exam: Neck Supple, Trachea Midline Pulmonary Resp Exam: Clear Bilaterally, No Distress Cardiology CV Exam: Regular, Good Perfusion Gastrointestinal/Abdomen GI Exam: Soft, Non-Tender, Bowel Sounds Present, Non-Distended Musculoskeletal MS Exam: Joints Intact Integumentary Skin Exam: Warm Extremeties Extremeties Remarks toes slightly warmer, left groin with Provena dressing intact. incision to left calk, intact. Left Doppler pulse, intermittent Left great toe necrotic, Toes and up to mid foot with discoloration faint pulse right foot Neurologic Neuro Exam: Alert, Awake, Oriented, Speech Clear Neuro Remarks right arm proximal weakness Psychiatric Psych Exam: Appropriate Responses VTE Prophylaxis VTE Prophylaxis Meds: Lovenox Assessment/Plan Assessment/Plan Peripheral artery disease, gangrene of the great toe of the left foot, leukocytosis mild, hyponatremia mild, hyperglycemia with diet-controlled diabetes type 2, anemia mild, mildly elevated platelet count hypertension. Acute kidney injury S/P S/P . L iliofemoral bypass/ L LE angiogram/L fem-peroneal bypass with cryo vein 09/15 Right proximal arm weakness Plan: Gangrenous great toe with left foot appreciate vascular surgery consult. S/P S/P . L iliofemoral bypass/ L LE angiogram/L fem-peroneal bypass with cryo vein 09/15 pain management vascular checks HH stable continue ASA Lovenox and Coumadin on hold, going for EGD, resume after Leukocytosis, trending down, 12 -monitor CBC, fever. Diabetes type 2 uncontrolled on admission -Accu-Cheks with sliding scale -ADA diet Hypertension, controlled -continue with with medical management Acute kidney injury, resolved -stable, dc IVF Anemia, dropped in HH 8.5 -HH in am -iron prof in am -Stool for OB Right arm weakness, has strong adult care provider ? etiology, no injury, ? brachial plexus -CT head negative. -Right shoulder xray-no acute findings. -OT eval -Evaluated per neurology, cervical MRI results noted-DDD, high grade right > left foraminal stenosis C5/C6 and C6/C7 and high grade foraminal stenosis at C7/ T1. Reported dysphagia -appreciate GI input -Swallow eval results, barium swallow done, results noted-distal esophageal stricture -NPO going for EGD today Continue with PT DC planning in progress, to SNF next week Labs in am D/W RN D/W Dr. Driver D/W pt This patient was seen by myself and Dr. Driver, this note is written on his behalf. Kaylene Barton Sep 21, 2016 08:38
--- NOTE | 2016-09-21 11:55 | PD.VS.PN ---
Subjective Procedure(s): L ilioprofunda bypass, L fem-peroneal bypass, angiogram Subjective/Hospital Course getting ready to go for GI procedure. No complaints. Objective Vitals/I&O Date Time Temp Pulse Resp B/P Pulse Ox O2 Delivery O2 Flow Rate FiO2 09/21/16 10:07 64 09/21/16 09:13 60 09/21/16 08:42 98.6 76 18 155/69 99 09/21/16 08:42 69 09/21/16 08:42 99 Room Air 09/21/16 06:04 69 09/21/16 05:28 66 09/21/16 04:14 68 09/21/16 03:25 68 09/21/16 03:10 98.3 75 20 142/69 86 09/21/16 03:10 96 Room Air 09/21/16 02:10 64 09/21/16 01:02 64 09/21/16 00:00 60 09/20/16 23:25 99 Room Air 09/20/16 23:25 98.7 61 22 154/67 99 09/20/16 23:00 61 09/20/16 22:00 68 09/20/16 21:00 84 09/20/16 20:05 76 09/20/16 19:30 98.3 80 18 133/58 98 09/20/16 19:30 77 09/20/16 19:30 98 Room Air 09/20/16 18:13 77 09/20/16 18:12 18 09/20/16 17:11 70 09/20/16 16:17 75 09/20/16 15:30 73 09/20/16 15:30 98.7 75 18 141/58 100 09/20/16 15:30 100 Room Air 09/20/16 14:04 73 09/20/16 13:13 67 09/20/16 12:32 71 09/21/16 09/21/16 09/21/16 07:00 15:00 23:00 Intake Total 480 ml Output Total 1325 ml Balance -845 ml Incisions: left groin and leg incisions clean left foot warm. Laboratory Laboratory Tests Test 09/21/16 04:22 White Blood Count 12.0 Red Blood Count 3.00 Hemoglobin 8.5 Hematocrit 26.0 Mean Corpuscular Volume 86.7 Mean Corpuscular Hemoglobin 28.2 Mean Corpuscular Hemoglobin 32.5 Concent Red Cell Distribution Width 13.1 Platelet Count 344 Mean Platelet Volume 9.0 Prothrombin Time 11.9 Prothromb Time International 1.1 Ratio Assessment and Plan Assessment: (1) Gangrene of toe of left foot Status: Acute (2) Peripheral arterial disease Status: Acute Plan Making great progress. Continue physical therapy. Progression of anticoagulation. Discharge Planning early next week Sanju Rivera DO Sep 21, 2016 11:55
[2016-09-21] MEDS ORDERED: PROPOFOL 200 MG/20 ML AMP IV ONE (12:57)
--- NOTE | 2016-09-21 13:10 | PD.PROCEDR ---
GI Procedure REFERRING PHYSICIAN Dr. Ayers PROCEDURE PERFORMED EGD INDICATION FOR PROCEDURE Dysphagia PROCEDURE: The procedure, risks and benefits were discussed with Mr. Campos and informed consent was obtained. Anesthesia sedated him with Diprivan. He was placed in the left lateral decubitus position. EGD: The Pentax videoscope was introduced through the oropharynx and advanced to the second portion of the duodenum under direct visualization. Retroflexion was performed in the stomach. 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
[2016-09-21] MEDS ORDERED: DO NOT ADM ANY ANTICOAGULANT DRUGS PRN (13:45)
[2016-09-21] MEDS: WARFARIN SOD 5 MG TAB PO SCH (17:02)
--- NOTE | 2016-09-21 19:32 | PD.CONS ---
History of Present Illness Service Neurosurgery Consult Requested By Medicine service Reason for Consult Right arm weakness. Cervical stenosis Primary Care Physician Jamaal Castillo M.D. Diagnoses: History of Present Illness 86-year-old male history of peripheral vascular disease presented to the emergency room 09/12/16 for treatment of gangrene to the right first toe. He underwent a left iliofemoral bypass and 09/15/16. Patient states that since the procedure, he has not been able to lift his right arm up all the way. He denies any weakness or numbness in the left upper extremity. No radiating pain in the upper extremities. No complaint of neck pain. Review of Systems Constitutional: COMPLAINS OF: Fatigue, DENIES: Fever Eyes: DENIES: Blurred vision, Diplopia Respiratory: DENIES: Shortness of breath Cardiovascular: DENIES: Chest pain, Palpitations Gastrointestinal: DENIES: Nausea, Vomiting Hematologic/lymphatic: DENIES: Bruising Neurologic: COMPLAINS OF: Abnormal gait, DENIES: Speech Problems Psychiatric: DENIES: Anxiety, Confusion Past Family Social History Allergies: Coded Allergies: No Known Allergies (Verified , 09/12/16) Past Medical History Hypertension Peripheral vascular disease Previous CVA Past Surgical History Vascular procedures noted above. Previous carotid endarterectomy Reported Medications Reported Meds & Active Scripts Active Reported Clopidogrel (Clopidogrel Bisulfate) 75 Mg Tab 75 Mg PO DAILY Lisinopril 40 Mg Tab 40 Mg PO DAILY Hydrocodone-Acetaminophen 5-325 mg Tab 1 Tab PO Q6H PRN Metoprolol Tartrate 25 Mg Tab 25 Mg PO BID Social History Does not smoke cigarettes. No history of significant alcohol use Physical Exam Vital Signs Vital Signs Date Time Temp Pulse Resp B/P Pulse Ox O2 Delivery O2 Flow Rate FiO2 09/21/16 18:06 68 09/21/16 17:04 87 09/21/16 16:15 85 09/21/16 15:27 98.2 71 18 155/77 99 09/21/16 15:27 99 Room Air 09/21/16 15:27 76 09/21/16 15:01 16 09/21/16 14:21 69 09/21/16 13:15 63 17 142/63 97 Nasal Cannula 3 09/21/16 13:06 98.4 60 16 116/56 99 Nasal Cannula 3 09/21/16 12:01 62 09/21/16 11:58 62 09/21/16 11:58 98.0 61 18 148/72 99 09/21/16 11:58 99 Room Air 09/21/16 10:07 64 09/21/16 09:13 60 09/21/16 08:42 98.6 76 18 155/69 99 09/21/16 08:42 69 09/21/16 08:42 99 Room Air 09/21/16 06:04 69 09/21/16 05:28 66 09/21/16 04:14 68 09/21/16 03:25 68 09/21/16 03:10 98.3 75 20 142/69 86 09/21/16 03:10 96 Room Air 09/21/16 02:10 64 09/21/16 01:02 64 09/21/16 00:00 60 09/20/16 23:25 99 Room Air 09/20/16 23:25 98.7 61 22 154/67 99 09/20/16 23:00 61 09/20/16 22:00 68 09/20/16 21:00 84 09/20/16 20:05 76 09/20/16 19:30 98.3 80 18 133/58 98 09/20/16 19:30 77 09/20/16 19:30 98 Room Air Physical Exam GENERAL: This is a well-nourished, well-developed patient, in no apparent distress. SKIN: Positive ecchymosis, necrosis left foot-first toe HEAD: Atraumatic. Normocephalic. No temporal or scalp tenderness. EYES: Sclerae are clear and nonicteric ENT: Oropharynx clear. No facial edema or ecchymosis NECK: Trachea midline. No JVD or lymphadenopathy. Supple, nontender, no meningeal signs. CARDIOVASCULAR: Regular rate and rhythm without murmurs, gallops, or rubs. RESPIRATORY: Clear to auscultation. Breath sounds equal bilaterally. No wheezes , rales, or rhonchi. GASTROINTESTINAL: Abdomen soft, non-tender, nondistended. No hepato-splenomegaly , or palpable masses. No guarding. MUSCULOSKELETAL: Positive gangrene, ecchymosis left foot-first toe NEUROLOGICAL: Awake and alert Somewhat irritable. Does not really want to discuss his problems with me or cooperate very well with examination. With encouragement he answers some simple questions. Speech is clear and appropriate Somewhat limited judgment and insight Extraocular movements intact Facial motor movements symmetric Tongue protrudes midline Visual kemp to confrontation intact Intact bilateral shoulder shrug Sensation intact to light touch all extremities Strength diminished to 1-to/5 right deltoid, otherwise within normal limits major flexion and extension groups in the upper and lower extremities. Arthritic changes in the hands with limited hand intrinsic motor function Annemarie's response absent bilateral No ankle clonus Plantar response neutral Laboratory Laboratory Tests Test 09/21/16 04:22 White Blood Count 12.0 Red Blood Count 3.00 Hemoglobin 8.5 Hematocrit 26.0 Mean Corpuscular Volume 86.7 Mean Corpuscular Hemoglobin 28.2 Mean Corpuscular Hemoglobin 32.5 Concent Red Cell Distribution Width 13.1 Platelet Count 344 Mean Platelet Volume 9.0 Prothrombin Time 11.9 Prothromb Time International 1.1 Ratio Result Diagram: 09/21/16 0422 Imaging 09/20/16 cervical and brain MRI images reviewed by the undersigned. There is moderate C3-4 stenosis without definite significant abnormal signal intensity within the spinal cord and probably only mild overall cord compression. There appears to be really only significant right C3-4 foraminal stenosis. No definite significant C5 nerve impingement. Cervical Spine MRI 09/20/16 0000 Signed Impressions: Service Date/Time: Tuesday, September 20, 2016 14:29 - CONCLUSION: 1. Multilevel cervical spine degenerative changes as detailed above. 2. High-grade right greater than left foraminal stenosis at C5/C6 and C6/C7 and high-grade bilateral foraminal stenosis at C7/T1. Slightly milder degrees of foraminal stenosis at the other levels. 3. Moderate spinal stenosis with short segment cord compression but no cord signal abnormality at C3/C4. Otherwise mild or mild to moderate spinal stenosis as above. 4. Grade 1 degenerative anterolisthesis at C4/C5 and mild degenerative appearing kyphosis centered around C5/C6. No fracture or acute appearing malalignment. Ari Gomes MD Brain MRI 09/20/16 0000 Signed Impressions: Service Date/Time: Tuesday, September 20, 2016 14:29 - CONCLUSION: 1. Senescent changes with changes of periventricular small vessel disease. 2. No acute abnormality. Specifically, no evidence for acute infarction. Abdiel Reed MD Barium Swallow X-Ray 09/19/16 0000 Signed Impressions: Service Date/Time: Monday, September 19, 2016 10:44 - CONCLUSION: 1. Barium tablet remains in the distal esophagus likely related to smooth distal esophageal stricture. 2. Mild esophageal dysmotility indicated by tertiary contractions. 3. No evidence of gastroesophageal reflux or hiatal hernia. 4. If there is clinical concern for swallowing abnormality modified barium swallow with speech pathology would be more sensitive in this patient with severe kyphosis. Nick Bowie MD Shoulder X-Ray 09/18/16 Signed Impressions: Service Date/Time: , September 18, 2016 17:09 - CONCLUSION: Degenerative changes. No acute fracture. Barry Membreno MD Head CT 09/18/16 Signed Impressions: Service Date/Time: , September 18, 2016 16:56 - CONCLUSION: 1. No acute intracranial abnormality. Stable compared to previous examination. Barry Membreno MD Chest X-Ray 09/13/16 Signed Impressions: Service Date/Time: Tuesday, September 13, 2016 16:51 - CONCLUSION: 1. No acute findings. Mildly tortuous aorta. Hamlet Soliz MD Assessment and Plan Assessment and Plan Impression: 1. Right upper extremity weakness. This appears to be isolated primarily to the right deltoid. No definite C5 nerve impingement on MRI. He does have C4 nerve compression. 2. Cervical stenosis, primarily C3-4 level. No definite myelopathy and imaging study, no increasing of intensity within the cord and only relatively mild overall cord compression. Recommendations: Findings were discussed with the patient. He states that he really does not want any treatment for the right arm weakness. He states that he does not want any more tests or procedures, is really tired of being in the hospital. Given the MRI and exam findings, it is prudent to continue conservative treatment, right upper extremity physical therapy and occupational therapy. No cervical collar needed. Mario Puri MD Sep 21, 2016 19:32
[2016-09-21] MEDS: FAMOTIDINE 20 MG TAB PO SCH (20:45)
[2016-09-22] VITALS (28 sets, daily range): BP systolic 128–152; BP diastolic 55–67; PULSE 58–96; RESP 16–18; TEMP 97.1–98.6; O2SAT 95–100
[2016-09-22 06:20] LABS: HEMATOCRIT 25.1 % (39.0-51.0); MEAN CELL VOLUME 86.4 FL (80.0-100.0); MEAN CORPUSCULAR HEMOGLOBIN 28.2 PG (27.0-34.0); MEAN CORPUSCULAR HGB CONC 32.6 % (32.0-36.0); PLATELET COUNT 345 TH/MM3 (150-450); RED BLOOD COUNT 2.91 MIL/MM3 (4.50-5.90); RED CELL DISTRIBUTION WIDTH 12.9 % (11.6-17.2); RETIC % 1.4 % (0.4-3.0); REVIEW FLAG FINAL; WHITE BLOOD COUNT 11.6 TH/MM3 (4.0-11.0)
[2016-09-22 06:23] LABS: TRANSFERRIN IRON PROFILE 134 MG/DL (200-360)
[2016-09-22 06:48] LABS: FERRITIN 214 NG/ML (26-388)
[2016-09-22] MEDS: ASPIRIN 325 MG TAB PO SCH (09:00)
[2016-09-22] MEDS: SODIUM CHLORIDE 0.9% FLUSH 10 ML FLUSH IV FLUSH SCH ×2 (09:48→22:16)
[2016-09-22] MEDS: PANTOPRAZOLE SOD 40 MG DELAYED RELEASE TAB PO SCH (09:49)
[2016-09-22] MEDS: amLODIPine BESYLATE 5 MG TAB PO SCH (09:49)
[2016-09-22] MEDS: LISINOPRIL 20 MG TAB PO SCH (09:49)
[2016-09-22] MEDS: DOCUSATE SODIUM 50 MG/SENNA 8.6 MG TAB PO SCH ×2 (09:49→21:00)
[2016-09-22] MEDS: METOPROLOL TARTRATE 25 MG TAB PO SCH ×2 (09:49→22:16)
--- NOTE | 2016-09-22 09:57 | PD.VS.PN ---
Subjective POD #: 7 Procedure(s): L ilioprofunda bypass, L fem-peroneal bypass, angiogram Subjective/Hospital Course Pt w/o complaints Improved Left foot pain and discoloration Objective Vitals/I&O Date Time Temp Pulse Resp B/P Pulse Ox O2 Delivery O2 Flow Rate FiO2 09/22/16 07:46 97.7 80 18 128/55 100 09/22/16 06:00 62 09/22/16 05:00 64 09/22/16 04:00 62 09/22/16 03:45 98.6 66 16 141/62 98 09/22/16 03:00 62 09/22/16 02:00 62 09/22/16 01:00 62 09/22/16 00:00 59 09/21/16 23:20 98.4 61 16 107/57 97 09/21/16 23:00 59 09/21/16 22:00 60 09/21/16 21:00 82 09/21/16 20:00 74 09/21/16 19:40 97.7 78 16 137/67 99 09/21/16 19:40 99 Room Air 09/21/16 19:00 73 09/21/16 18:06 68 09/21/16 17:04 87 09/21/16 16:15 85 09/21/16 15:27 98.2 71 18 155/77 99 09/21/16 15:27 99 Room Air 09/21/16 15:27 76 09/21/16 15:01 16 09/21/16 14:21 69 09/21/16 13:15 63 17 142/63 97 Nasal Cannula 3 09/21/16 13:06 98.4 60 16 116/56 99 Nasal Cannula 3 09/21/16 12:01 62 09/21/16 11:58 62 09/21/16 11:58 98.0 61 18 148/72 99 09/21/16 11:58 99 Room Air 09/21/16 10:07 64 09/22/16 09/22/16 09/22/16 07:00 15:00 23:00 Intake Total 480 ml Output Total 450 ml Balance 30 ml Exam: GENERAL: Pt Alert in NAD SKIN: Warm and dry/ Left foot with improved discoloration Bilat feet warm w/ motor intact Triphasic Left DP heard via Doppler Laboratory Laboratory Tests Test 09/22/16 05:20 White Blood Count 11.6 Red Blood Count 2.91 Hemoglobin 8.2 Hematocrit 25.1 Mean Corpuscular Volume 86.4 Mean Corpuscular Hemoglobin 28.2 Mean Corpuscular Hemoglobin 32.6 Concent Red Cell Distribution Width 12.9 Platelet Count 345 Mean Platelet Volume 8.7 Reticulocyte Count 1.4 Absolute Reticulocyte Count 41.5 Iron Level 42 Total Iron Binding Capacity 188 Percent Iron Saturation 22.4 Ferritin 214 Vitamin B12 Level 355 Assessment and Plan Assessment: (1) Gangrene of toe of left foot Status: Acute (2) Peripheral arterial disease Status: Acute Plan Plan Continue physical therapy. Continue Progression of anticoagulation. Discharge Planning From a vascular standpoint pt OK to go to an OP Rehab facility Will follow up in our out patient clinic in 2 weeks Appointment scheduled Sanna Aguiar Sep 22, 2016 09:57
--- NOTE | 2016-09-22 13:39 | HHI.PR ---
Subjective Subjective Remarks Out of bed with assistance in chair Signs in room Patient is awake responsive Denies any acute pain or shortness of breath Eating solid food, appetite fair to good (Laya Silvestre) Review of Systems Constitutional Constitutional: Fatigue (easily postop), Weakness (generalized) (Laya Silvestre) Throat Throat Remarks EGD today (Laya Silvestre) Pulmonary Respiratory: Coughing (none while eating) (Laya Silvestre) Musculoskeletal MS: Weakness, Discomfort/Pain (postop left leg and toe gangrenous) (Laya Silvestre) Integumentary Skin Remarks Gangrenous left great toe, dry (Laya Silvestre) Neurologic Neurologic: Confused (minimal mild pleasant) (Laya Silvestre) Psychiatric Psychiatric: Normal Mood (Laya Silvestre) Vitals/Results Intake & Output 09/21/16 09/21/16 09/22/16 15:00 23:00 07:00 Intake Total 100 ml 600 ml 480 ml Output Total 1125 ml 450 ml Balance 100 ml -525 ml 30 ml Intake Oral 600 ml 480 ml IV Total 0 ml Other 100 ml Output Urine Total 1125 ml 450 ml # Bowel Movements 0 0 Vital Signs Vital Signs Date Time Temp Pulse Resp B/P Pulse Ox O2 Delivery O2 Flow Rate FiO2 09/22/16 07:46 97.7 80 18 128/55 100 09/22/16 06:00 62 09/22/16 05:00 64 09/22/16 04:00 62 09/22/16 03:45 98.6 66 16 141/62 98 09/22/16 03:00 62 09/22/16 02:00 62 09/22/16 01:00 62 09/22/16 00:00 59 09/21/16 23:20 98.4 61 16 107/57 97 09/21/16 23:00 59 09/21/16 22:00 60 09/21/16 21:00 82 09/21/16 20:00 74 09/21/16 19:40 97.7 78 16 137/67 99 09/21/16 19:40 99 Room Air 09/21/16 19:00 73 09/21/16 18:06 68 09/21/16 17:04 87 09/21/16 16:15 85 09/21/16 15:27 98.2 71 18 155/77 99 09/21/16 15:27 99 Room Air 09/21/16 15:27 76 09/21/16 15:01 16 09/21/16 14:21 69 (Laya Silvestre) CBC/BMP: 09/22/16 0520 Lab Results Laboratory Tests Test 09/22/16 05:20 White Blood Count 11.6 TH/MM3 Red Blood Count 2.91 MIL/MM3 Hemoglobin 8.2 GM/DL Hematocrit 25.1 % Mean Corpuscular Volume 86.4 FL Mean Corpuscular Hemoglobin 28.2 PG Mean Corpuscular Hemoglobin 32.6 % Concent Red Cell Distribution Width 12.9 % Platelet Count 345 TH/MM3 Mean Platelet Volume 8.7 FL Reticulocyte Count 1.4 % Absolute Reticulocyte Count 41.5 MIL/L Iron Level 42 MCG/DL Total Iron Binding Capacity 188 MCG/DL Percent Iron Saturation 22.4 % Ferritin 214 NG/ML Vitamin B12 Level 355 PG/ML Current Medications Administered Medications Medications (Trade) Dose Ordered Sig/Angela Route PRN Reason Start Time Stop Time Status Last Admin Dose Admin Sodium Chloride (NS Flush) 2 ml UNSCH PRN IV FLUSH FLUSH AFTER USING IV ACCESS 09/12/16 15:15 09/16/16 01:15 Sodium Chloride (NS Flush) 2 ml BID IV FLUSH 09/12/16 21:00 09/22/16 09:48 Senna/Docusate Sodium (Rabia-Colace) 1 tab BID PO 09/12/16 21:00 09/22/16 09:49 Magnesium Hydroxide (Milk Of Magnesia Liq) 30 ml Q12H PRN PO MILD - MODERATE CONSTIPATION 09/12/16 15:15 09/18/16 15:18 Lactulose (Lactulose Liq) 30 ml DAILY PRN PO SEVERE CONSITIPATION 09/12/16 15:15 09/18/16 15:18 Hydromorphone HCl (Dilaudid Pf Inj) 0.5 mg Q4H PRN IV PUSH pain 6-10;IF NO PO 09/12/16 15:15 09/16/16 16:30 Lisinopril (Prinivil) 40 mg DAILY PO 09/13/16 09:00 09/22/16 09:49 Famotidine (Pepcid) 20 mg HS PO 09/12/16 21:00 09/21/16 20:45 Aspirin (Aspirin) 325 mg DAILY PO 09/15/16 09:00 09/22/16 09:00 Pantoprazole Sodium (Protonix) 40 mg DAILY PO 09/15/16 09:00 09/22/16 09:49 Oxycodone HCl (Roxicodone) 5 mg Q4H PRN PO PAIN SCALE 1 TO 5 09/15/16 07:45 09/22/16 12:37 Hydromorphone HCl (Dilaudid) 2 mg Q4H PRN PO PAIN SCALE 6 TO 10 09/15/16 07:45 09/17/16 14:36 Metoprolol Tartrate (Lopressor Inj) 5 mg Q2H PRN IV PUSH FOR SBP > 160 09/15/16 22:00 09/16/16 16:15 Metoprolol Tartrate (Lopressor) 50 mg BID PO 09/16/16 21:00 09/22/16 09:49 Amlodipine Besylate (Norvasc) 5 mg DAILY PO 09/17/16 09:00 09/22/16 09:49 Warfarin Sodium (Coumadin) 5 mg DAILY@1600 PO 09/17/16 16:00 09/21/16 17:02 (Laya Silvestre) Physical Exam General General Appearance: Well Developed, Well Nourished, No Acute Distress, Comfortable (Laya Silvestre) Eyes Eye Exam: Pupils Equal, Pupils Reactive (Laya Silvestre) Ears & Nose Ears & Nose Exam: Nasal Mucosa Dearing (Laya Silvestre) Throat Throat Exam: Oral Mucosa Dearing & Moist (Laya Silvestre) Neck Neck Exam: Neck Supple, Trachea Midline (Laya Silvestre) Pulmonary Resp Exam: Clear Bilaterally, No Distress (Laya Silvestre) Cardiology CV Exam: Regular, Good Perfusion (Laya Silvestre) Gastrointestinal/Abdomen GI Exam: Soft, Non-Tender, Bowel Sounds Present, Non-Distended (Laya Silvestre) Musculoskeletal MS Exam: Joints Intact (Laya Silvestre) Integumentary Skin Exam: Warm (Laya Silvestre) Neurologic Neuro Exam: Alert, Awake, Oriented, Speech Clear (Laya Silvestre) Psychiatric Psych Exam: Appropriate Responses (Laya Silvestre) VTE Prophylaxis VTE Prophylaxis Meds: Lovenox (Laya Silvestre) Assessment/Plan Assessment/Plan Peripheral artery disease, gangrene of the great toe of the left foot, leukocytosis mild, hyponatremia mild, hyperglycemia with diet-controlled diabetes type 2, anemia mild, mildly elevated platelet count hypertension. Acute kidney injury S/P S/P . L iliofemoral bypass/ L LE angiogram/L fem-peroneal bypass with cryo vein 09/15 Right proximal arm weakness Plan: Gangrenous great toe with left foot, dry, full left foot and extremity warm. Palpable pulses appreciate vascular surgery consult. S/P S/P . L iliofemoral bypass/ L LE angiogram/L fem-peroneal bypass with cryo vein 09/04 Increase activity, up out of bed today, physical therapy, tolerated fairly well Appetite fair, eating solid food ADA diet vascular checks, appears stable HH stable continue ASA will follow in CM a couple weeks as outpatient Leukocytosis, continues to trend down afebrile Diabetes type 2 uncontrolled on admission -Accu-Cheks with sliding scale, ADA diet Hypertension, controlled -continue with with medical management Acute kidney injury, resolved -stable, dc IVF Anemia, post op and probable chronic disease Right arm weakness, degenerative disc disease found per cervical MRI Evaluated per neurology and neurosurgery, cervical MRI results noted-DDD, high grade right > left foraminal stenosis C5/C6 and C6/C7 and high grade foraminal stenosis at C7/T1. , Patient choosing conservative treatment versus any further surgery. Reported dysphagia , improving, appreciate GI input and consult Continue with PT DC planning, probable SNF for rehabilitation to increase strength and mobility today vs am. CM consult D/W RN D/W Dr. Wheeler, seen on his behalf D/W pt and his sons Consult case management (Laya Silvestre) Assessment/Plan Patient seen and examined as above Labs medications and radiological data reviewed Some of the previous notes reviewed Appreciate vascular surgery and neurosurgery input Plan of care discussed with BAN[facility] COOK Discussed with patient and family at bedside (Elvis Wheeler MD) Laya Silvestre Sep 22, 2016 13:39 Elvis Wheeler MD Sep 22, 2016 16:45
[2016-09-22] MEDS: WARFARIN SOD 5 MG TAB PO SCH (16:32)
[2016-09-22] MEDS: FAMOTIDINE 20 MG TAB PO SCH (22:15)
[2016-09-23] VITALS (18 sets, daily range): BP systolic 116–161; BP diastolic 49–78; PULSE 42–66; RESP 18–20; TEMP 97.6–98.7; O2SAT 99–100
[2016-09-23] MEDS: METOPROLOL TARTRATE 5 MG/5 ML VIAL IV PUSH PRN (04:14)
--- NOTE | 2016-09-23 06:58 | PD.VS.PN ---
Subjective POD #: 8 Procedure(s): L ilioprofunda bypass, L fem-peroneal bypass, angiogram Subjective/Hospital Course Feels well, still has pain in foot with weight on it No rest pain overnight. incisions sore but pain tolerable Objective Vitals/I&O Date Time Temp Pulse Resp B/P Pulse Ox O2 Delivery O2 Flow Rate FiO2 09/23/16 06:07 53 09/23/16 05:16 55 09/23/16 04:15 56 09/23/16 03:15 52 09/23/16 03:15 98.7 61 18 161/60 99 09/23/16 02:50 53 09/23/16 01:01 60 09/23/16 00:00 59 09/22/16 23:15 98.0 66 16 128/60 96 09/22/16 23:00 64 09/22/16 22:15 76 09/22/16 21:00 70 09/22/16 20:10 70 09/22/16 19:30 72 09/22/16 19:30 97.3 76 18 152/67 95 09/22/16 18:04 60 09/22/16 17:00 58 09/22/16 16:00 58 09/22/16 15:30 97.1 60 18 138/63 100 09/22/16 15:00 62 09/22/16 14:00 58 09/22/16 13:00 78 09/22/16 12:00 64 09/22/16 11:00 60 09/22/16 11:00 97.3 63 18 134/57 100 09/22/16 10:00 96 09/22/16 09:00 74 09/22/16 08:00 74 09/22/16 07:46 97.7 80 18 128/55 100 09/22/16 07:00 75 09/23/16 09/23/16 09/23/16 06:59 14:59 22:59 Intake Total 480 ml Output Total 1275 ml Balance -795 ml Exam: resting comfortably in bed L groin incision minimally ecchymotic but no hematoma L lower leg incision looks good Leg not swollen Stable dry gangrene L hallux tip without surrounding erythema Pulses: Strong DP Doppler signal Assessment and Plan Assessment: (1) Gangrene of toe of left foot Status: Acute (2) Peripheral arterial disease Status: Acute Plan PT/OOB/ambulation anticoagulation for goal INR 2 . Discharge Planning From a vascular standpoint pt OK to go to an OP Rehab facility Will follow up in our out patient clinic in 2 weeks Appointment scheduled Nick Yusuf MD Sep 23, 2016 06:58
[2016-09-23] MEDS: ASPIRIN 325 MG TAB PO SCH (08:11)
[2016-09-23] MEDS: LISINOPRIL 20 MG TAB PO SCH (08:11)
[2016-09-23] MEDS: amLODIPine BESYLATE 5 MG TAB PO SCH (08:11)
[2016-09-23] MEDS: DOCUSATE SODIUM 50 MG/SENNA 8.6 MG TAB PO SCH (08:11)
[2016-09-23] MEDS: SODIUM CHLORIDE 0.9% FLUSH 10 ML FLUSH IV FLUSH SCH (08:11)
[2016-09-23] MEDS: METOPROLOL TARTRATE 25 MG TAB PO SCH (08:11)
[2016-09-23] MEDS: PANTOPRAZOLE SOD 40 MG DELAYED RELEASE TAB PO SCH (08:11)
--- NOTE | 2016-09-23 13:48 | HHI.PR ---
Subjective Remarks Vision is feeling better Occasional pain on walking only at surgical site No other complaint Review of system for 10 point system otherwise unremarkable Objective Objective Results - Vital Signs Date Time Temp Pulse Resp B/P Pulse Ox O2 Delivery O2 Flow Rate FiO2 09/23/16 11:00 97.6 58 18 116/49 100 09/23/16 10:00 58 09/23/16 09:00 66 09/23/16 08:17 98.1 64 18 159/78 99 09/23/16 08:00 64 09/23/16 07:00 62 09/23/16 06:07 53 09/23/16 05:16 55 09/23/16 04:15 56 09/23/16 03:15 52 09/23/16 03:15 98.7 61 18 161/60 99 09/23/16 02:50 53 09/23/16 01:01 60 09/23/16 00:00 59 09/22/16 23:15 98.0 66 16 128/60 96 09/22/16 23:00 64 09/22/16 22:15 76 09/22/16 21:00 70 09/22/16 20:10 70 09/22/16 19:30 72 09/22/16 19:30 97.3 76 18 152/67 95 09/22/16 18:04 60 09/22/16 17:00 58 09/22/16 16:00 58 09/22/16 15:30 97.1 60 18 138/63 100 09/22/16 15:00 62 09/22/16 14:00 58 I/O 09/22/16 09/22/16 09/22/16 09/23/16 09/23/16 09/23/16 07:00 15:00 23:00 07:00 15:00 23:00 Intake Total 480 ml 720 ml 480 ml Output Total 450 ml 750 ml 1275 ml Balance 30 ml -30 ml -795 ml Intake Oral 480 ml 720 ml 480 ml IV Total 0 ml Output Urine Total 450 ml 750 ml 1275 ml # Bowel Movements 0 Result Diagram: 09/22/16 05 Physical Exam Physical Exam General General Appearance: Well Developed, Well Nourished, No Acute Distress, Comfortable Eyes Eye Exam: Pupils Equal, Pupils Reactive Throat Throat Exam: Oral Mucosa [place] & Moist Neck Neck Exam: Neck Supple, Trachea Midline Pulmonary Resp Exam: Clear Bilaterally, No Distress Cardiology CV Exam: Regular, Good Perfusion Gastrointestinal/Abdomen GI Exam: Soft, Non-Tender, Bowel Sounds Present, Non-Distended Musculoskeletal MS Exam: Joints Intact Integumentary Skin Exam: Warm. Ms. surgical intact and no sign of infection Neurologic Neuro Exam: Alert, Awake, Oriented, Speech Clear Psychiatric Psych Exam: Appropriate Responses VTE Prophylaxis VTE Prophylaxis Meds: Coumadin A/P Assessment and Plan Peripheral artery disease, gangrene of the great toe of the left foot, leukocytosis mild, hyponatremia mild, hyperglycemia with diet-controlled diabetes type 2, anemia mild, mildly elevated platelet count hypertension. Acute kidney injury S/P S/P . L iliofemoral bypass/ L LE angiogram/L fem-peroneal bypass with cryo vein 09/15 Right proximal arm weakness Plan: Gangrenous great toe with left foot, dry, full left foot and extremity warm. Palpable pulses appreciate vascular surgery consult. S/P S/P . L iliofemoral bypass/ L LE angiogram/L fem-peroneal bypass with cryo vein 09/04 Increase activity, up out of bed today, physical therapy, tolerated fairly well Appetite fair, eating solid food ADA diet vascular checks, appears stable HH stable continue ASA Leukocytosis, continues to trend down afebrile Diabetes type 2 -Accu-Cheks with sliding scale, ADA diet Hypertension, controlled -continue with with medical management Acute kidney injury, resolved -stable, dc IVF Anemia, post op and probable chronic disease Right arm weakness, degenerative disc disease found per cervical MRI Evaluated per neurology and neurosurgery, cervical MRI results noted-DDD, high grade right > left foraminal stenosis C5/C6 and C6/C7 and high grade foraminal stenosis at C7/T1. , Patient choosing conservative treatment versus any further surgery. Reported dysphagia , improving, appreciate GI input and consult status post EGD showing lymphangiectasia in duodenum otherwise normal EGD Continue with PT DC planning, SNF for rehabilitation to increase strength and mobility today. Discussed with nurse outreach case manager about DC planning today D/W RN D/W pt Discussed with Dr. Paramjit orta to discharge he will follow as outpatient and take care of his gangrene toe. As discussed will continue Coumadin goal is between 2-3. No need for Lovenox as discussed with Elvis Ponce MD Sep 23, 2016 13:48
[2016-09-23] MEDS ORDERED: ASPI325T PO (13:57)
[2016-09-23] MEDS ORDERED: ACET1TAB86 PO (13:57)
[2016-09-23] MEDS ORDERED: FAMO20TA2 PO (13:57)
[2016-09-23] MEDS ORDERED: BISA10R RECTAL (13:57)
[2016-09-23] MEDS ORDERED: OXYC-392 PO (13:57)
[2016-09-23] MEDS ORDERED: COUM5TAB PO (13:57)
[2016-09-23] MEDS ORDERED: AMLO5 PO (13:57)
[2016-09-23] MEDS ORDERED: METO25TA3 PO (13:57)
[2016-09-23] MEDS ORDERED: SENN1TAB PO (13:57)
[2016-09-23] MEDS ORDERED: DILA2TAB2 PO (13:57)
[2016-09-23] MEDS ORDERED: IPRASOL NEB (13:57)
[2016-09-23] MEDS: WARFARIN SOD 5 MG TAB PO SCH (15:02)
--- NOTE | 2016-09-23 15:44 | HHI.DS ---
Discharge Summary Admission Date Sep 12, 2016 at 15:06 Discharge Date: Sep 23, 2016 Admitting Diagnosis great toe ischemia, peripheral arterial disease Procedures vascular surgery Brief History This was a pleasant 86-year-old white male who had been in his usual state of health up until this past March. The patient's sons are at bedside and assisting with his history. The patient had always been very active and walked with his walker daily as well as exercises daily. The patient noted some increased sensation of pain back since March and has been following his PCP and vascular surgeon, Dr. Jones for his vascular insufficiency. Approximately a week ago sons noted a very small black area on his great toe that has rapidly progressed to black tissue to over half of his right great toe. The patient has also reddened erythema over half of his foot but no further dark or blackened areas noted. The patient was seen per his vascular surgeon, Dr. Jones today and was advised to come to the hospital for admission. According to the sons the plan is to do surgery on Thursday. The patient denied any chest pain. He did have some shortness of breath with exertion but none at rest. The patient denies any headaches. The patient denied any nausea, vomiting, no diarrhea. No constipation. The patient was alert, awake, answered simple questions but he was a fair to poor historian. Sons at his bedside and supportive of his care and were his chief caretakers. CBC/BMP: 09/22/16 0520 Significant Findings Laboratory Tests Test 09/21/16 09/22/16 04:22 05:20 White Blood Count 12.0 TH/MM3 11.6 TH/MM3 (4.0-11.0) (4.0-11.0) Red Blood Count 3.00 MIL/MM3 2.91 MIL/MM3 (4.50-5.90) (4.50-5.90) Hemoglobin 8.5 GM/DL 8.2 GM/DL (13.0-17.0) (13.0-17.0) Hematocrit 26.0 % 25.1 % (39.0-51.0) (39.0-51.0) Prothrombin Time 11.9 SEC (9.8-11.6) Iron Level 42 MCG/DL (65-175) Total Iron Binding Capacity 188 MCG/DL (250-450) Imaging Last Impressions Cervical Spine MRI 09/20/16 0000 Signed Impressions: Service Date/Time: Tuesday, September 20, 2016 14:29 - CONCLUSION: 1. Multilevel cervical spine degenerative changes as detailed above. 2. High-grade right greater than left foraminal stenosis at C5/C6 and C6/C7 and high-grade bilateral foraminal stenosis at C7/T1. Slightly milder degrees of foraminal stenosis at the other levels. 3. Moderate spinal stenosis with short segment cord compression but no cord signal abnormality at C3/C4. Otherwise mild or mild to moderate spinal stenosis as above. 4. Grade 1 degenerative anterolisthesis at C4/C5 and mild degenerative appearing kyphosis centered around C5/C6. No fracture or acute appearing malalignment. Ari Gomes MD Brain MRI 09/20/16 0000 Signed Impressions: Service Date/Time: Tuesday, September 20, 2016 14:29 - CONCLUSION: 1. Senescent changes with changes of periventricular small vessel disease. 2. No acute abnormality. Specifically, no evidence for acute infarction. Abdiel Reed MD Barium Swallow X-Ray 09/19/16 0000 Signed Impressions: Service Date/Time: Monday, September 19, 2016 10:44 - CONCLUSION: 1. Barium tablet remains in the distal esophagus likely related to smooth distal esophageal stricture. 2. Mild esophageal dysmotility indicated by tertiary contractions. 3. No evidence of gastroesophageal reflux or hiatal hernia. 4. If there is clinical concern for swallowing abnormality modified barium swallow with speech pathology would be more sensitive in this patient with severe kyphosis. Nick Bowie MD Shoulder X-Ray 09/18/16 0000 Signed Impressions: Service Date/Time: September 17:09 - CONCLUSION: Degenerative changes. No acute fracture. Barry Membreno MD Head CT 09/18/16 0000 Signed Impressions: Service Date/Time: September 16:56 - CONCLUSION: 1. No acute intracranial abnormality. Stable compared to previous examination. Barry Membreno MD Chest X-Ray 09/13/16 0000 Signed Impressions: Service Date/Time: Tuesday, September 13, 2016 16:51 - CONCLUSION: 1. No acute findings. Mildly tortuous aorta. Hamlet Soliz MD PE at Discharge General Appearance: Well Developed, Well Nourished, No Acute Distress, Comfortable Eyes Eye Exam: Pupils Equal, Pupils Reactive Throat Throat Exam: Oral Mucosa [place] & Moist Neck Neck Exam: Neck Supple, Trachea Midline Pulmonary Resp Exam: Clear Bilaterally, No Distress Cardiology CV Exam: Regular, Good Perfusion Gastrointestinal/Abdomen GI Exam: Soft, Non-Tender, Bowel Sounds Present, Non-Distended Musculoskeletal MS Exam: Joints Intact Integumentary Skin Exam: Warm. Ms. surgical intact and no sign of infection Neurologic Neuro Exam: Alert, Awake, Oriented, Speech Clear Psychiatric Psych Exam: Appropriate Responses VTE Prophylaxis VTE Prophylaxis Meds: Coumadin Hospital Course These are the diagnoses that were used to treat this patient during his plan of care and hospital stay. Peripheral artery disease, gangrene of the great toe of the left foot, leukocytosis mild, hyponatremia mild, hyperglycemia with diet-controlled diabetes type 2, anemia mild, mildly elevated platelet count hypertension. Acute kidney injury S/P S/P . L iliofemoral bypass/ L LE angiogram/L fem-peroneal bypass with cryo vein 09/15 Right proximal arm weakness Dysphagia Plan: Patient's vital signs were monitored every 4 and as needed throughout hospital stay. Any abnormals were noted and treated as needed She had multiple labs throughout his hospital stay. These were also noted and treated as needed per hospitalist team and consulting team. Gangrenous great toe with left foot, dry, full left foot and extremity warm. Palpable pulses appreciate vascular surgery consult. Patient was monitored over the weekend and set up for surgery Thursday for . L iliofemoral bypass/ L LE angiogram/L fem- peroneal bypass with cryo vein 09/04. Patient tolerated surgical procedure fairly well. His labs and activity, occasions were monitored postop per vascular surgeon as well as pain management. Physical therapy evaluated and treated patient for his mobility, strengthening postop Increase activity as warranted per physical therapy, tolerated fairly well. Sons were present most of the days to assist as needed for emotional support Appetite fair, eating solid food ADA diet vascular checks, appears stable HH stable throughout hospital stay continue ASA Patient's necrotic left great toe was left open to air, and remained dry throughout course of hospital stay. This will be monitored on an outpatient basis per Dr. Jones. After surgical procedure patient was monitored per contract accountant team for 2 days, then was transitioned to private room. Leukocytosis, continues to trend down and monitored throughout hospital stay afebrile and monitored Diabetes type 2 -Accu-Cheks with sliding scale, ADA diet Hypertension, controlled -continue with with medical management Acute kidney injury, resolved -stable, dc IVF Anemia, post op and probable chronic disease Right arm weakness was noted several days after surgical procedure several tests were done. patient was found to have degenerative disc disease found per cervical MRI Evaluated per neurology and neurosurgery, cervical MRI results noted-DDD, high grade right > left foraminal stenosis C5/C6 and C6/C7 and high grade foraminal stenosis at C7/T1. , Patient choosing conservative treatment versus any further surgery. Reported dysphagia was also noted postop, improving, Patient's swallow was evaluated and patient was treated per ST. Patient was noted to have kyphosis. 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 Physical therapy along with patient's medical team felt that he would benefit from SNF for rehabilitation to increase strength and mobility This was also Discussed with case finisher. Discussed with Dr. Yusuf. He agreed it was okay to discharge he will follow as outpatient and take care of his gangrene toe. As discussed will continue Coumadin goal is between 2-3. No need for Lovenox as discussed with Dr. Yusuf Pt Condition on Discharge: Fair Discharge Disposition: Discharge to SNF Discharge Instructions DIET: Follow Instructions for: Heart Healthy Diet, Diabetic Diet Speech Therapy-Diet Recommends: Regular Activities you can perform: Weight Bearing as Leigh Ann Follow up Referrals: PCP Follow-up - 3-5 Days Vascular Surgery - 2 Weeks with Nick Yusuf MD New Medications: Acetaminophen (Eq Acetaminophen) 325 Mg Tab 650 MG PO Q4H PRN TEMP > 100.4 #28 TAB Amlodipine (Norvasc) 5 Mg Tab 5 MG PO DAILY hypertension #30 TAB Aspirin (Aspirin) 325 Mg Tab 81 MG PO DAILY vascular disease #30 TAB Bisacodyl Supp (Bisac-Evac Supp) 10 Mg Supp 10 MG RECTAL DAILY PRN SEVERE CONSITIPATION #15 APPLIC Famotidine (Famotidine) 20 Mg Tab 20 MG PO HS a stress ulcer prevention #30 TAB Hydromorphone (Dilaudid) 2 Mg Tab 2 MG PO Q4H PRN PAIN SCALE 6 TO 10 #30 TAB Ipratropium-Albuterol Neb (Duoneb) 0.5-2.5 Mg/3 Ml Neb 1 AMPULE NEB Q4HR NEB PRN WHEEZING #28 ML Metoprolol Tartrate (Metoprolol Tartrate) 25 Mg Tab 50 MG PO BID hypertension #60 TAB Oxycodone (Oxycodone) 5 Mg Tab 5 MG PO Q4H PRN PAIN SCALE 1 TO 5 #31 TAB Sennosides-Docusate Sodium (Senna Plus 8.6-50 mg) 1 Tab Tab 1 TAB PO BID constipation #60 TAB Warfarin (Coumadin) 5 Mg Tab 5 MG PO DAILY@1600 vascular disease #30 TAB Continued Medications: Lisinopril (Lisinopril) 40 Mg Tab 40 MG PO DAILY Blood Pressure Management #30 Ref 0 TAB Discontinued Medications: Clopidogrel (Clopidogrel) 75 Mg Tab 75 MG PO DAILY Blood Clot Prevention #30 Ref 0 TAB Hydrocodone-Acetaminophen (Hydrocodone-Acetaminophen) 5-325 mg Tab 1 TAB PO Q6H PRN PAIN Ref 0 TAB Metoprolol Tartrate (Metoprolol Tartrate) 25 Mg Tab 25 MG PO BID #60 Ref 0 TAB Laya Silvestre Sep 23, 2016 15:44
== END 2016-09-23 15:15 | DRG 271 ==
LOC: NEPE 12:40 → NEDA 15:06 → HOCB 17:49 → HCVR 09-15 13:05 → HCIN 09-17 10:28
PROVIDERS: ADMIT Internal Medicine; ATTEND Internal Medicine
PROC: B41G1ZZ Fluoroscopy of Left Lower Extremity Arteries using Low Osmolar Contrast (ICD-10-PCS; 2016-09-15)
PROC: 041J0JJ Bypass Left External Iliac Artery to Left Femoral Artery with Synthetic Substitute, Open Approach (ICD-10-PCS; principal; 2016-09-15 07:54)
PROC: 041 Lower Arteries, Bypass (ICD-10-PCS; 2016-09-15 07:54)
PROC: 0DJ08ZZ Inspection of Upper Intestinal Tract, Via Natural or Artificial Opening Endoscopic (ICD-10-PCS; 2016-09-21)
DX: E11.52 Type 2 diabetes mellitus with diabetic peripheral angiopathy with gangrene (principal); N17.9 Acute kidney failure, unspecified; E11.65 Type 2 diabetes mellitus with hyperglycemia; E11.41 Type 2 diabetes mellitus with diabetic mononeuropathy; E87.1 Hypo-osmolality and hyponatremia; R13.10 Dysphagia, unspecified; D63.8 Anemia in other chronic diseases classified elsewhere; M48.02 Spinal stenosis, cervical region; I73.9 Peripheral vascular disease, unspecified; D72.829 Elevated white blood cell count, unspecified; I10 Essential (primary) hypertension; M40.209 Unspecified kyphosis, site unspecified; R50.9 Fever, unspecified; I83.812 Varicose veins of left lower extremity with pain; K22.4 Dyskinesia of esophagus; R41.82 Altered mental status, unspecified; K59.00 Constipation, unspecified; M25.511 Pain in right shoulder; M50.33 Other cervical disc degeneration, cervicothoracic region; H91.90 Unspecified hearing loss, unspecified ear; Z86.73 Personal history of transient ischemic attack (TIA), and cerebral infarction without residual deficits; Z87.891 Personal history of nicotine dependence
CPT/HCPCS: 70450; 70551; 71010; 72141; 73030; 74230; 75710; 80048; 82607; 82728; 83540; 83550; 85025; 85027; 85044; 85610; 85730; 86850; 86900; 86901; 86920; 93005; 94150; J0171; J0461; J0690; J1170; J1642; J1644; J1650; J2250; J2270; J2370; J2405; J2720; J3010; J7030; J7040; J7120; L8670

== ENCOUNTER 2016-10-03 09:50 | Emergency (ER) | payer MEDICARE ==
[~2016-10-03] VITALS: Ht 170.2 cm; Wt 60.0 kg
[~2016-10-03 09:50] MED LIST changes: +ACET1TAB86 PO; +AMLO5 PO; +ASPI325T PO; -BACT800T5 PO; +BISA10R RECTAL; -CEPH500C3 PO; +COUM5TAB PO; +DILA2TAB2 PO; +FAMO20TA2 PO; +IPRASOL NEB; +LISI40TA PO; -METO25 PO; +METO25TA3 PO; -METO50TA PO; +OXYC-392 PO; -PLAV75TA PO; +SENN1TAB PO
[2016-10-03 09:54] VITALS: BP 136/62; PULSE 82; RESP 20; TEMP 98; O2SAT 100
[2016-10-03 10:10] VITALS: RESP 20; O2SAT 96
--- NOTE | 2016-10-03 10:13 | PD ---
HPI Chief Complaint: Respiratory Distress Time Seen by Provider: 10:02 Travel History International Travel<30 days: No Contact w/Intl Traveler<30days: No Traveled to known affect area: No History of Present Illness HPI 86 y/o male presents with shortness of breath for the past week. He states that the urgent care they placed him on the oxygen because he was tired and his monitor was beeping. He states he's never been on it before. He states that he went to his vascular surgeons appointment today and his oxygen level was low despite his oxygen and so they wanted him to come here to get checked out. His stepdaughter is also present with him and confirms the above. The patient denies any pain. He states he followed with a vascular surgeon because earlier this month he had surgery to his left leg. Quality is hard to catch breath. Severity is progressive. PFSH Past Medical History Hx Anticoagulant Therapy: Yes (COUMADIN) Cancer: No Cerebrovascular Accident: Yes Diabetes: Yes Diminished Hearing: Yes (DOES NOT WEAR HEARING AIDS) Genitourinary: No Hypertension: Yes Musculoskeletal: No Neurologic: No Psychiatric: No Reproductive: No Respiratory: No Immunizations Current: Yes Past Surgical History Cardiac Surgery: Yes (CAROTID ENDARECTOMY) Ear Surgery: No Endocrine Surgery: No Eye Surgery: No Genitourinary Surgery: No Gynecologic Surgery: No Oral Surgery: No Other Surgery: Yes (CAROTID SX) Social History Alcohol Use: No Tobacco Use: No Substance Use: No Allergies-Medications (Allergen,Severity, Reaction): Coded Allergies: No Known Allergies (Verified , 10/03/16) Reported Meds & Prescriptions Reported Meds & Active Scripts Active Coumadin (Warfarin) 5 Mg Tab 5 Mg PO DAILY@1600 Senna Plus 8.6-50 mg (Sennosides-Docusate Sodium) 1 Tab Tab 1 Tab PO BID Metoprolol Tartrate 25 Mg Tab 50 Mg PO BID Duoneb (Ipratropium-Albuterol Neb) 0.5-2.5 Mg/3 Ml Neb 1 Ampule NEB Q4HR NEB PRN Bisac-Evac Supp (Bisacodyl) 10 Mg Supp 10 Mg RECTAL DAILY PRN Aspirin 325 Mg Tab 81 Mg PO DAILY Reported Oxycodone (Oxycodone HCl) 5 Mg Cap 5 Mg PO Q4H PRN Feosol (Ferrous Sulfate) 200 Mg Tab 325 Mg PO DAILY Miralax Powder (Polyethylene Glycol 3350 Powder) 17 Gm Powd 17 Gm PO HS Mix and dissolve one measuring cap-ful (17 grams) in water or juice. Miralax (Polyethylene Glycol 3350) 17 Gm Powd.pack Famotidine 20 Mg Tab 20 Mg PO HS Lisinopril 40 Mg Tab 40 Mg PO DAILY Review of Systems Except as stated in HPI: all other systems reviewed are Neg Physical Exam Narrative GENERAL: Well-nourished, well-developed patient. SKIN: Warm and dry. HEAD: Normocephalic and atraumatic. EYES: No injection or drainage. ENT: No nasal drainage noted. NECK: Supple, trachea midline. CARDIOVASCULAR: Regular rate and rhythm RESPIRATORY: Breath sounds equal bilaterally at apices. No accessory muscle use. Tachypnea noted GASTROINTESTINAL: Abdomen soft, non-tender, nondistended. EXTREMITIES: No significant edema to right leg, mild noted to left leg, postsurgical changes noted to left leg. BACK: Nontender without obvious deformity. NEUROLOGICAL: Awake and alert. Moves all extremities. Normal speech. Data Data Last Documented VS Vital Signs Date Time Temp Pulse Resp B/P Pulse Ox O2 Delivery O2 Flow Rate FiO2 10/03/16 12:13 18 99 Room Air 10/03/16 10:10 2 10/03/16 09:54 98.0 82 136/62 Orders Complete Blood Count With Diff (10/03/16 10:09) Comprehensive Metabolic Panel (10/03/16 10:09) B-Type Natriuretic Peptide (10/03/16 10:09) Act Partial Throm Time (Ptt) (10/03/16 10:09) Prothrombin Time / Inr (Pt) (10/03/16 10:09) Magnesium (Mg) (10/03/16 10:09) Ckmb (Isoenzyme) Profile (10/03/16 10:09) Troponin I (10/03/16 10:09) Iv Access Insert/Monitor (10/03/16 10:09) Electrocardiogram (10/03/16 10:09) Ecg Monitoring (10/03/16 10:09) Oximetry (10/03/16 10:09) Oxygen Administration (10/03/16 10:09) Chest, Single Ap (10/03/16 10:09) Sodium Chloride 0.9% Flush (Ns Flush) (10/03/16 10:15) Labs Laboratory Tests Test 10/03/16 10:00 White Blood Count 12.9 TH/MM3 Red Blood Count 3.32 MIL/MM3 Hemoglobin 9.5 GM/DL Hematocrit 29.0 % Mean Corpuscular Volume 87.3 FL Mean Corpuscular Hemoglobin 28.7 PG Mean Corpuscular Hemoglobin 32.9 % Concent Red Cell Distribution Width 13.9 % Platelet Count 485 TH/MM3 Mean Platelet Volume 8.3 FL Neutrophils (%) (Auto) 74.8 % Lymphocytes (%) (Auto) 13.8 % Monocytes (%) (Auto) 9.3 % Eosinophils (%) (Auto) 1.2 % Basophils (%) (Auto) 0.9 % Neutrophils # (Auto) 9.6 TH/MM3 Lymphocytes # (Auto) 1.8 TH/MM3 Monocytes # (Auto) 1.2 TH/MM3 Eosinophils # (Auto) 0.2 TH/MM3 Basophils # (Auto) 0.1 TH/MM3 CBC Comment DIFF FINAL Differential Comment Prothrombin Time 25.2 SEC Prothromb Time International 2.2 RATIO Ratio Activated Partial 39.8 SEC Thromboplast Time Sodium Level 132 MEQ/L Potassium Level 4.6 MEQ/L Chloride Level 99 MEQ/L Carbon Dioxide Level 25.0 MEQ/L Anion Gap 8 MEQ/L Blood Urea Nitrogen 27 MG/DL Creatinine 1.48 MG/DL Estimat Glomerular Filtration 45 ML/MIN Rate Random Glucose 110 MG/DL Calcium Level 8.7 MG/DL Magnesium Level 2.8 MG/DL Total Bilirubin 0.4 MG/DL Aspartate Amino Transf 18 U/L (AST/SGOT) Alanine Aminotransferase 20 U/L (ALT/SGPT) Alkaline Phosphatase 87 U/L Total Creatine Kinase 48 U/L Troponin I LESS THAN 0.02 NG/ML B-Type Natriuretic Peptide 51 PG/ML Total Protein 8.5 GM/DL Albumin 2.8 GM/DL [facility] Medical Decision Making Medical Screen Exam Complete: Yes Emergency Medical Condition: Yes Medical Record Reviewed: Yes (past history confirmed) Interpretation(s) CBC & BMP Diagram 10/03/16 10:00 cxr no acute inr 2.2 Differential Diagnosis Anemia, renal failure, pneumonia, CHF, PE Narrative Course Will check blood work, chest x-ray and reevaluate ed workup no emergent process, room air sat 99 on room air, feeling better here , waiting to go, step daugther at bedside, Patient denies any new complaints, all questions answered. Patient knows that follow up is incumbent on them and to return to the emergency room immediately if new or worsening symptoms develop. Patient given strict return precautions, vitals reviewed and are normal , agrees to further workup as an outpatient. Physician Communication Physician Communication d/w hospitalist and no indication for admission given findings Diagnosis Primary Impression: Shortness of breath Patient Instructions: General Instructions Additional Instructions: return as needed, follow with primary thursday Med/Other Pt SpecificInfo: No Change to Meds Disposition: 01 DISCHARGE HOME (rehab) Condition: Stable Adry Tam MD Oct 03, 2016 10:13
[2016-10-03] MEDS ORDERED: SODIUM CHLORIDE 0.9% FLUSH 10 ML FLUSH IVF PRN (10:15)
[2016-10-03 10:28] LABS: AUTOMATED NEUTROPHIL # 9.6 TH/MM3 (1.8-7.7); BASOPHIL # 0.1 TH/MM3 (0-0.2); BASOPHIL % 0.9 % (0.0-2.0); EOSINOPHIL # 0.2 TH/MM3 (0-0.4); EOSINOPHIL % 1.2 % (0.0-4.0); HEMO FLAGS DIFF FINAL; LYMPH % 13.8 % (9.0-44.0); LYMPHOCYTE # 1.8 TH/MM3 (1.0-4.8); MEAN CELL VOLUME 87.3 FL (80.0-100.0); MEAN CORPUSCULAR HEMOGLOBIN 28.7 PG (27.0-34.0); MEAN CORPUSCULAR HGB CONC 32.9 % (32.0-36.0); MONO % 9.3 % (0.0-8.0); NEUT % 74.8 % (16.0-70.0); PLATELET COUNT 485 TH/MM3 (150-450); RED BLOOD COUNT 3.32 MIL/MM3 (4.50-5.90); RED CELL DISTRIBUTION WIDTH 13.9 % (11.6-17.2); WHITE BLOOD COUNT 12.9 TH/MM3 (4.0-11.0)
[2016-10-03 10:35] LABS: APTT (PATIENT) 39.8 SEC (24.3-30.1); INTERNATIONAL NORMALIZED RATIO 2.2 RATIO; PROTHROMBIN TIME - PATIENT 25.2 SEC (9.8-11.6)
[2016-10-03 10:45] LABS: ALT (GPT) 20 U/L (12-78); ANION GAP 8 MEQ/L (5-15); AST (GOT) 18 U/L (15-37); BLOOD UREA NITROGEN 27 MG/DL (7-18); CHLORIDE 99 MEQ/L (98-107); GLOMERULAR FILTRATION RATE 45 ML/MIN (>89); MAGNESIUM 2.8 MG/DL (1.5-2.5); POTASSIUM 4.6 MEQ/L (3.5-5.1); SODIUM (NA) 132 MEQ/L (136-145)
[2016-10-03] MEDS ORDERED: OXYC1CAP PO (10:46)
[2016-10-03] MEDS ORDERED: FERR200T PO (10:46)
[2016-10-03] MEDS ORDERED: MIRA3350 PO (10:46)
[2016-10-03] MEDS ORDERED: FAMO20TA2 PO (10:46)
[2016-10-03] MEDS ORDERED: POLY17PO3 (10:46)
[2016-10-03 10:48] LABS: ALKALINE PHOSPHATASE 87 U/L (45-117); TOTAL BILIRUBIN ADULT 0.4 MG/DL (0.2-1.0)
[2016-10-03 10:51] LABS: CREATINE KINASE 48 U/L (39-308)
--- NOTE | 2016-10-03 11:19 | RADRPT ---
EXAM DATE/TIME: 10/03/2016 10:10 [facility] COMPARISON: CHEST SINGLE AP, September 13, 2016, 16:51. INDICATIONS : Shortness of breath. MEDICAL HISTORY : Hypertension. Diabetes mellitus type II. SURGICAL HISTORY : Carotid endarterectomy. CABG. ENCOUNTER: Initial ACUITY: 1 day. PAIN SCORE: 0/10 LOCATION: Bilateral chest FINDINGS: The heart and mediastinal structures are normal. The pulmonary vascular pattern is also normal. The lungs are clear. Degenerative changes are noted throughout the thoracic spine. Degenerative change s are alos noted involving the shoulders bilaterally. CONCLUSION: 1. No acute cardiopulmonary disease. 2. Degenerative changes involving thoracic spine and bilateral shoulders. Nick Bowie MD on October 03, 2016 at 11:13 Board Certified Radiologist. This report was verified electronically.
[2016-10-03 12:13] VITALS: RESP 18; O2SAT 99
[2016-10-03 13:58] VITALS: BP 124/78; TEMP 97.8
--- NOTE | 2016-10-03 14:31 | EKG ---
Date Performed: 10/03/2016 Time Performed: 10:31:30 PTAGE: 86 years EKG: Sinus rhythm NORMAL ECG NO SIGNIFICANT CHANGE FROM PRIOR ELECTROCARDIOGRAM. PREVIOUS TRACING : 09/14/2016 22.44 DOCTOR: Lior Quesada Interpretating Date/Time 10/03/2016 14:29:59
== END 2016-10-03 13:57 | disposition home or self-care (01) ==
LOC: NEPE 09:50
DX: R06.02 Shortness of breath (principal); E11.9 Type 2 diabetes mellitus without complications; I10 Essential (primary) hypertension; Z86.73 Personal history of transient ischemic attack (TIA), and cerebral infarction without residual deficits; Z79.01 Long term (current) use of anticoagulants; Z79.899 Other long term (current) drug therapy; Z79.82 Long term (current) use of aspirin
CPT/HCPCS: 71010; 80053; 82550; 83735; 83880; 84484; 85025; 85610; 85730; 93005

== ENCOUNTER → 2016-11-12 | Day surgery (SDC) | payer MEDICARE ==
[~2016-11-12] VITALS: Ht 170.2 cm; Wt 66.0 kg
[~2016-11-12] MED LIST changes: -ACET1TAB86 PO; +ACET325C PO; +AMLO10TA2 PO; -AMLO5 PO; +ASPI-110 PO; -ASPI325T PO; +BUPIVACAINE/EPINEPHRINE 0.5% PF 30 ML VIAL ONE; +CHLORHEXIDINE GLUCONATE 2 % 1 PACK (2 CLOTHS) TOPICAL PRN; -DILA2TAB2 PO; +DIPH25CA PO; +DO NOT ADM ANY ANTICOAGULANT DRUGS PRN; +FERR200T PO; +FINA5TAB2 PO; +GUAISYP7 PO; +HEPARIN SODIUM - SQ 10,000 UNITS/ML VIAL ONE; +INSULIN HUMAN REGULAR 1,000 UNITS/10 ML VIAL SQ PRN; +IOHEXOL 300 MG/ML 50 ML BTL (for RAD DIAG) ONE; +KETAMINE HCL 500 MG/5 ML VIAL ONE; +LACTATED RINGER'S 1000 ML IV PRN; +MELA3TAB PO; +METOPROLOL TARTRATE 25 MG TAB PO PRN; +MIDAZOLAM HCL 2 MG/2 ML VIAL ONE; +MIRA3350 PO; +MULT-65 PO; +NEUR100C PO; -OXYC-392 PO; +OXYC1CAP PO; +PHENYLEPH/NS 1000 MCG/10 ML SYR IV ONE; +POVIDONE IODINE 5% (ANTISEPSIS KIT) 4 APPLICATIONS EACH NARE PRN; +SODIUM CHLORID 0.9% 500 ML IV PRN; +TAMS5CAP PO; +TRAM50TA PO; +TUMS500C CHEW; +VITA500C18 PO; +WARF-18 PO; +WARF-58 PO; +WARF4TAB51 PO; +[UNRECOGNIZED DRUG - CODE] PO; +[UNRECOGNIZED DRUG - CODE] RC
[2016-11-12 08:13] VITALS: BP 147/57; PULSE 71; RESP 18; TEMP 98.8; O2SAT 99
--- NOTE | 2016-11-12 08:16 | RADRPT ---
EXAM DATE/TIME: 11/12/2016 07:49 [facility] COMPARISON: CHEST SINGLE AP, October 03, 2016, 10:10. INDICATIONS : Evaluate for pneumonia, pneumothorax, and communicable disease. Preoperative exam for angiogram. MEDICAL HISTORY : Hypertension. Diabetes mellitus type II. SURGICAL HISTORY : Carotid endarterectomy. ENCOUNTER: Initial ACUITY: 1 day PAIN SCORE: 0/10 LOCATION: Bilateral chest FINDINGS: Minimal bibasilar parenchymal changes are evident worse on the left and the right without evidence of active inflammatory disease. The heart and pulmonary vascularity are normal. The portion of the bony skeleton visualized is unremarkable. CONCLUSION: No acute disease. Benito Membreno MD FACR on November 12, 2016 at 8:13 Board Certified Radiologist. This report was verified electronically.
--- NOTE | 2016-11-12 08:42 | EKG ---
Date Performed: 11/12/2016 Time Performed: 08:04:38 PTAGE: 86 years EKG: Sinus rhythm NORMAL ECG PREVIOUS TRACING : 10/03/2016 10.31 DOCTOR: Mendoza Singh Interpretating Date/Time 11/12/2016 08:37:16
[2016-11-12 08:43] LABS: AUTOMATED NEUTROPHIL # 9.5 TH/MM3 (1.8-7.7); BASOPHIL % 0.3 % (0.0-2.0); EOSINOPHIL # 0.1 TH/MM3 (0-0.4); EOSINOPHIL % 1.1 % (0.0-4.0); HEMATOCRIT 21.8 % (39.0-51.0); HEMO FLAGS DIFF FINAL; LYMPH % 15.5 % (9.0-44.0); MEAN CELL VOLUME 86.3 FL (80.0-100.0); MEAN CORPUSCULAR HEMOGLOBIN 27.8 PG (27.0-34.0); MEAN CORPUSCULAR HGB CONC 32.1 % (32.0-36.0); MONO % 9.9 % (0.0-8.0); NEUT % 73.2 % (16.0-70.0); PLATELET COUNT 349 TH/MM3 (150-450); RED BLOOD COUNT 2.52 MIL/MM3 (4.50-5.90); RED CELL DISTRIBUTION WIDTH 15.7 % (11.6-17.2)
[2016-11-12 08:46] LABS: APTT (PATIENT) 39.5 SEC (24.3-30.1); INTERNATIONAL NORMALIZED RATIO 1.6 RATIO; PROTHROMBIN TIME - PATIENT 17.6 SEC (9.8-11.6)
[2016-11-12 09:01] LABS: BACTERIA, URINE MOD /hpf; BLOOD, URINE TRACE (NEG); COMMENT (UR) CULTURE INDICATED; CULTURE IF INDICATED CULTURE INDICATED; GLUCOSE,URINE NEG (NEG); KETONE, URINE NEG (NEG); MUCUS URINE FEW /lpf (OCC); NITRITE,URINE NEG (NEG); PH, URINE 5.5 (5.0-8.5); URINE COLOR LIGHT-YELLOW (YELLW/STRAW)
[2016-11-12 09:17] LABS: BICARBONATE 25.5 MEQ/L (21.0-32.0); POTASSIUM 3.9 MEQ/L (3.5-5.1)
--- NOTE | 2016-11-12 09:34 | HHI.HP ---
History of Present Illness Chief Complaint: R LE pain History of Present Illness 86 yo male with PAD who underwent L groin reconstruction and L LE bypass with improved noninvansive testing and stable tissue loss on the LEFT. He has been in rehab and has new RIGHT leg rest pain. Wakes him up at night. Was on coumadin for PAD/graft protection and INR 1.6 today. Presents for R LE angiogram Past/Family/Social History Past Medical History CVA DM XOL HTN PAD Past Surgical History L LE bypass several months ago Social History nonsmoker Family History NC Home Medications Active Scripts Sennosides-Docusate Sodium (Senna Plus 8.6-50 mg)1 Tab Tab1 Tab PO BID #60 TAB Prov:Elvis Wheeler MD 09/23/16 Metoprolol Tartrate 25 Mg Tab50 Mg PO BID #60 TAB Prov:Elvis Wheeler MD 09/23/16 Ipratropium-Albuterol Neb (Duoneb)0.5-2.5 Mg/3 Ml Neb1 Ampule NEB Q4HR NEB PRN ( WHEEZING) #28 ML Prov:Elvis Wheeler MD 09/23/16 Bisacodyl Supp (Bisac-Evac Supp)10 Mg Supp10 Mg RECTAL DAILY PRN (SEVERE CONSITIPATION) #15 APPLIC Prov:Elvis Wheeler MD 09/23/16 Reported Medications Warfarin 2.5 Mg Tab2.5 Mg PO DAILY Ref 0 11/12/16 Warfarin 2 Mg Tab2 Mg PO DAILY Ref 0 11/12/16 Warfarin 3 Mg Tab3 Mg PO DAILY Ref 0 11/12/16 Phenylephrine in Hard Fat Supp (Hemorrhoidal Supp)0.25 % Supp1 Supp RC DAILY PRN (RECTAL PAIN) 11/11/16 Tramadol 50 Mg Tab50 Mg PO Q4H PRN (PAIN) Ref 0 11/11/16 Guaifenesin-Dextromethorphan Liq (Guaifenesin DM Liq)10-100 Mg/5 Ml Liq10 Ml PO Q4H PRN (COUGH) #1 BOTTLE Ref 0 11/11/16 Oxycodone 5 Mg Cap5 Mg PO Q4H PRN (PAIN) Ref 0 11/11/16 Melatonin 3 Mg Tab3 Mg PO HS PRN (INSOMNIA) 11/11/16 Diphenhydramine 25 Mg Cap25 Mg PO Q6H PRN (ALLERGIES) Ref 0 11/11/16 Acetaminophen 325 Mg [id number] Mg PO Q4HR PRN (PAIN SCALE 1 TO 10) 11/11/16 Gabapentin (Neurontin)100 Mg Kyn033 Mg PO TID #90 CAP Ref 0 11/11/16 Ascorbic Acid ER (Vitamin C Sr)500 Mg Pqtjj535 Mg PO DAILY Ref 0 11/11/16 Calcium Carbonate (Antacid) (Tums)500 Mg Xvzc544 Mg CHEW DAILY PRN (HEARTBURN) Ref 0 11/11/16 Amino Acids-Protein Hydrolysat (Pro-Stat Sugar Free)1 Liq Liq30 Ml PO BID 11/11/16 Multiple Vitamin (Multi-Vitamin Daily)1 Tab Tab1 Tab PO DAILY Ref 0 11/11/16 Finasteride 5 Mg Tab5 Mg PO DAILY #30 TAB Ref 0 Do not crush. 11/11/16 Tamsulosin (Flomax)0.4 Mg Cap0.4 Mg PO HS #30 CAP Ref 0 11/11/16 Famotidine 20 Mg Tab20 Mg PO BID #60 TAB Ref 0 11/11/[address] (Aspirin 81)81 Mg Tabdr81 Mg PO DAILY Ref 0 11/11/16 Amlodipine 10 Mg Tab10 Mg PO DAILY #30 TAB Ref 0 11/11/16 Oxycodone 5 Mg Cap5 Mg PO Q4H PRN (PAIN) Ref 0 10/03/16 Ferrous Sulfate (Feosol)200 Mg Mxf881 Mg PO DAILY #30 TAB Ref 0 10/03/16 Polyethylene Glycol 3350 Powder (Miralax Powder)17 Gm Powd17 Gm PO HS #1 CAN Ref 0 Mix and dissolve one measuring cap-ful (17 grams) in water or juice. 10/03/16 Lisinopril 40 Mg Tab40 Mg PO DAILY #30 TAB Ref 0 09/12/16 Discontinued Reported Medications Famotidine 20 Mg Tab20 Mg PO HS #60 TAB Ref 0 10/03/16 Polyethylene Glycol 3350 (Miralax)17 Gm Powd.pack 10/03/16 Discontinued Scripts Warfarin (Coumadin)5 Mg Tab5 Mg PO DAILY@1600 #30 TAB Prov:Elvis Wheeler MD 09/23/16 Aspirin 325 Mg Tab81 Mg PO DAILY #30 TAB Prov:Elvis Wheeler MD 09/23/16 Coded Allergies: No Known Allergies (Verified , 10/03/16) Review of Systems Constitutional: DENIES: Fever, Chills Cardiovascular: DENIES: Chest pain, Dyspnea on Exertion, PND, Lower Extremity Edema, Orthopnea, Claudication Gastrointestinal: DENIES: Abdominal pain Neurologic: COMPLAINS OF: Abnormal gait Physical Exam Vitals/I&O Date Time Temp Pulse Resp B/P Pulse Ox O2 Delivery O2 Flow Rate FiO2 11/12/16 08:13 98.8 71 18 147/57 99 Neuro: elderly and in no distress, conversant HEENT: NC/AT; anicteric sclera Neck: no JVD Heart: reg rate Lungs: clear Vascular: L LE tissue loss, stable healed surgical wounds R LE rubor Laboratory Tests Test 11/12/16 11/12/16 08:21 08:23 Blood Type A POSITIVE Antibody Screen NEGATIVE White Blood Count 13.0 Red Blood Count 2.52 Hemoglobin 7.0 Hematocrit 21.8 Mean Corpuscular Volume 86.3 Mean Corpuscular Hemoglobin 27.8 Mean Corpuscular Hemoglobin 32.1 Concent Red Cell Distribution Width 15.7 Platelet Count 349 Mean Platelet Volume 7.8 Neutrophils (%) (Auto) 73.2 Lymphocytes (%) (Auto) 15.5 Monocytes (%) (Auto) 9.9 Eosinophils (%) (Auto) 1.1 Basophils (%) (Auto) 0.3 Neutrophils # (Auto) 9.5 Lymphocytes # (Auto) 2.0 Monocytes # (Auto) 1.3 Eosinophils # (Auto) 0.1 Basophils # (Auto) 0.0 CBC Comment DIFF FINAL Differential Comment Prothrombin Time 17.6 Prothromb Time International 1.6 Ratio Activated Partial 39.5 Thromboplast Time Urine Color LIGHT-YELLOW Urine Turbidity HAZY Urine pH 5.5 Urine Specific Sprague 1.010 Urine Protein TRACE Urine Glucose (UA) NEG Urine Ketones NEG Urine Occult Blood TRACE Urine Nitrite NEG Urine Bilirubin NEG Urine Urobilinogen LESS THAN 2.0 Urine Leukocyte Esterase LARGE Urine RBC 6 Urine WBC 58 Urine WBC Clumps FEW Urine Bacteria MOD Urine Mucus FEW Microscopic Urinalysis Comment CULTURE INDICATED Sodium Level 133 Potassium Level 3.9 Chloride Level 101 Carbon Dioxide Level 25.5 Anion Gap 7 Blood Urea Nitrogen 30 Creatinine 1.04 Estimat Glomerular Filtration 67 Rate Random Glucose 119 Calcium Level 7.7 Date/Time Procedure Status Source Growth 11/12/16 08:23 Urine Culture Received Urine Clean Catch Pending Last 48 hours Impressions Chest X-Ray 11/12/16 0000 Signed Impressions: Service Date/Time: Saturday, November 12, 2016 07:49 - CONCLUSION: No acute disease. Benito Membreno MD FACR Assessment and Plan Plan R LE angiogram and potential endovascular intervention Nick Yusuf MD Nov 12, 2016 09:34
--- NOTE | 2016-11-12 10:53 | HHI.PR ---
Immediate Post Op Note Procedure Date: Nov 12, 2016 Pre Op Diagnosis: PAD R LE with rest pain Post Op Diagnosis: PAD R LE with rest pain Surgeon: Nick Yusuf Recorder Helper Seismograph(s): April Wilcox Procedure: U/S guided access to R CAR WIPER R LE angiogram Findings: 1. R PFA stenosis 2. Occluded SFA and popliteal artery 3. Peroneal artery reconstitution Additional Information: will need R groin reconstruction and fem-peroneal bypass Complications: none apparent Specimen(s) removed: none Estimated blood loss: 5mL Anesthesia: MAC Drains: None Patient to: PACU Patient Condition: Good Date/Time of Procedure: SEE SURGICAL CARE RECORD Nick Yusuf MD Nov 12, 2016 10:53
[2016-11-12 14:30] VITALS: BP 148/74; PULSE 65; RESP 18; TEMP 97.4; O2SAT 100
--- NOTE | 2016-11-14 15:02 | MP ---
cc: NICK YUSUF MD DATE OF SURGERY: 11/12/2016 PREOPERATIVE DIAGNOSIS Right lower extremity rest pain, peripheral vascular disease. POSTOPERATIVE DIAGNOSIS Right lower extremity rest pain, peripheral vascular disease. PROCEDURE 1. Ultrasound guided access to right common femoral artery. 2. Right lower extremity angiogram. ATTENDING SURGEON Nick Yusuf MD ANESTHESIA Local with sedation. INDICATION Mr. Campos is an 86-year-old gentleman with peripheral arterial occlusive disease and underwent a complex left groin reconstruction, distal bypass and now he has symptoms on his right leg. He is taken to the operating room for angiographic evaluation and treatment. There is no prior catheter-based imaging available for my review. DESCRIPTION OF PROCEDURE Informed consent was obtained from the patient. He was taken to the operating room and placed supine on the operating table. An appropriate timeout was taken that showed the patient identity, the operative site and planned procedure. The administration of antibiotics was not necessary as this is a clean procedure without a planned implantation or any foreign objects. Everyone in the room agreed with timeout and we proceeded. His bilateral groins were prepped and draped and under ultrasound guidance the right common femoral artery was accessed with a 21 gauge micropuncture needle, this was exchanged using Seldinger technique for micropuncture sheath, distal right lower extremity arteriogram was obtained. The sheath was removed and pressure was held for hemostasis. There were no complications. I was present and scrubbed and performed the entire procedure. INTERPRETATION OF IMAGES The patient has a very calcific but patent right common femoral artery. The profunda has a high-grade proximal stenosis. The SFA is occluded. The popliteal artery is occluded and the anterior tibial artery and posterior tibial arteries are occluded. The peroneal artery is the dominant runoff to the level of the ankle. Nick Yusuf MD RJF/TLL /11:41 AM /2:59 PM
== END | disposition home or self-care (01) ==
LOC: HSDC 07:36
PROVIDERS: ATTEND Surgery
DX: I73.9 Peripheral vascular disease, unspecified (principal); R82.99 Other abnormal findings in urine; B96.5 Pseudomonas (aeruginosa) (mallei) (pseudomallei) as the cause of diseases classified elsewhere; E11.9 Type 2 diabetes mellitus without complications; I10 Essential (primary) hypertension; M79.661 Pain in right lower leg; Z98.62 Peripheral vascular angioplasty status; Z79.82 Long term (current) use of aspirin; Z79.01 Long term (current) use of anticoagulants; Z86.73 Personal history of transient ischemic attack (TIA), and cerebral infarction without residual deficits; Z01.810 Encounter for preprocedural cardiovascular examination; Z01.818 Encounter for other preprocedural examination
CPT/HCPCS: 01916; 36140; 71010; 75710; 80048; 81001; 85025; 85610; 85730; 86850; 86900; 86901; 87077; 87086; 87186; 93005; C1769; J1644; J2250; J2370; J3010; J7120; Q9967